=== PATIENT | male | born 1960 | race Caucasian/White ===

== ENCOUNTER 2017-12-26 13:25 | Inpatient (IN) | payer OTHER ==
[~2017-12-26] VITALS: Ht 182.9 cm; Wt 120.2 kg
[~2017-12-26 13:25] MED LIST: FLUTICASONE PRO16 GM NS; FOLIC ACID1 MG PO; LISINOPRIL-HCT1 EAC1 PO; LISINOPRIL20 MG PO; SEROQUEL100 MG PO; TOPROL XL50 MG PO
--- NOTE | 2017-12-26 19:30 | NUR ---
REPORT RECEIVED FROM AG MORRISON. PT IS AWAKE IN BED WATCHING TV. LAB INTO DRAW BLOOD.
--- NOTE | 2017-12-26 20:00 | NUR ---
SISTER INTO SEE PT, PT AWAKE AND TALKING WITH SISTER. ASSESSMENT DONE. PT STATES HE ONLY HAS PAIN IF HE TRIES TO MOVE HIS LEG, IMMOBILIZER IN PLACE. PT IS ON A PRECEDEX GTT INFUSING AT 0.21 MCG/KG/HR, IVF STARTED AT 85ML/HR. PT USING URINAL IN BED TO VOID TONNY URINE. SIDE RAILS UP, BED ALARM ON.
--- NOTE | 2017-12-26 21:45 | NUR ---
HS MEDS GIVEN, PT AWAKE AND WATCHING TV, HAS SOME SLIGHT TREMORS, RESTING HR 80'S, IS CALM AND COOPERATIVE AND NO COMPLAINTS AT THIS TIME. EATING SOME JELLO AND DRINKING WATER.
--- NOTE | 2017-12-26 23:45 | NUR ---
OXYGEN APPLIED O2 SATS DOWN TO 86-88% WHILE SLEEPING, 2L/NC BRINGS SATS UP TO 93%.
--- NOTE | 2017-12-27 00:30 | NUR ---
ASSESSMENT DONE, UNCHANGED FROM EARLIER. PT VERY SLEEPY, PRECEDEX GTT INFUSING AT 0.21 MCG/KG/HR.
--- NOTE | 2017-12-27 02:24 | NUR ---
PT AWAKENS BRIEFLY TO USE URINAL TO VOID, INCREASED TREMORS, PT DENIES PAIN STATES "NO PAIN, IM JUST REALLY SLEEPY". BACK TO SLEEP AFTER ASSISTED WITH REPOSITIONING.
--- NOTE | 2017-12-27 04:06 | NUR ---
AWAKENS EASILY FOR ASSESSMENT, ALERT AND ORIENTED, STATES HE HAS PAIN WITH MOVEMENT ONLY BUT OTHERWISE HE IS COMFORTABLE. BACK TO SLEEP, VSS.
--- NOTE | 2017-12-27 06:19 | NUR ---
PT INC SMALL AMT OF STOOL, DARÍO CARE DONE/LINEN CHANGED. PT FOUND WITH BLEEDING GUMS/ORAL CARE DONE. PT REPOSITIONED UP IN BED. GIVEN OXYCODONE FOR PAIN, AND MORPHINE 2MG IV GIVEN FOR REPOSITIONING AND CLEANING.
--- NOTE | 2017-12-27 08:02 | NUR ---
PT VOIDED IN URINAL AT THIS TIME, TONNY IN COLOR WITH FOUL ORDOR NOTED. PT IS COOPERATIVE WITH HOSPITAL ROUTINE, PT IS NOP FOR ABD US TODAY.
--- NOTE | 2017-12-27 09:25 | NUR ---
CXR COMPLETE AND DR JEAN IN DEPARTMENT TO SEE RESULTS. PT REPOSITIONED AT THIS TIME ALSO. PT HAS YELLOW TINGE IN COLOR TO BODY AND EYES. PT WANTED SOMETHING TO DRINK AT THIS TIME EXPLAINED THAT HE IS NPO AT THIS TIME TILL THE US IS COMPLETED. A MOSIT GREEN SPONGE GIVEN TO PT AT THIS TIME.
--- NOTE | 2017-12-27 09:57 | NUR ---
US HERE AT THIS TIME TO COMPLETE ABD US.
--- NOTE | 2017-12-27 10:54 | NUR ---
PT VOIDED USING THE URINAL, TONNY-BILIARY IN COLOR. PT AWAKENS WELL WHEN SPOKEN TOO. C/O'S PAIN WHEN HE TRIES TO MOVE.
--- NOTE | 2017-12-27 11:06 | NUR ---
PT TOOK ORAL MEDS WELL AND IS CURRENTLY WATCHING TV.
--- NOTE | 2017-12-27 12:20 | NUR ---
DR JEAN INTO SEE PT AT THIS TIME, NO NEW ORDERS AT THIS TIME. PT SISTER INTO VISIT AT THIS TIME ALSO. PT AWAKENS WITH EASY THIS AFTERNOON.
--- NOTE | 2017-12-27 12:25 | NUR ---
PT GIVEN SOME CLEAR LIQUIDS TO DRINK AT THIS TIME. PT SITTING UPRIGHT IN BED AT THIS TIME. IT WAS NOTED THAT PATIENT CONTIOUES TO HAVE A CHEW IN HIS MOUTH. PT WAS ABLE TO SPIT IT OUT FOR STAFF. PT MOUTH CONTIOUES TO BLEED R/T LOW PLTS 73. ORAL CARE DONE NEEDED. SHAVING CREAM PLACE ON BOTH LOWER LEGS AND FEET TO SOAK IN SO THAT STAFF CAN GET THEM CLEANED. PT IS OKAY WITH STAFF CLEANING HIM UP. PT WAS FOUND DOWN YESTERDAY BY FAMILY. PT SAID HE FELL ABOUT 0300 AND THEN FAMILY FOUND HIM LATER IN THE AFTERNOON. POSSIBLE BEING DOWN FOR 10 HOURS OR LONGER.
--- NOTE | 2017-12-27 14:31 | NUR ---
COMPLET BED BATH GIVEN MAX ASSISTANCE NEEDED. PT PRE MEDICATED WITH 2MG MORPHINE IVP. PT ABLE TO TURN SELF AND IS COOPERATIVE WITH THE WHOLE PROCESS THIS AFTERNOON. STAFF EXPLAINED THE IMPORTANCE OF GOOD SKIN CARE DURING HIS HOSPITAL STAY AND GOOD HYGINE. ORAL CARE COMPLETED ALSO IT IS NOTED THAT HIS GUMS UPPER AND LOWER BLEED. ORAL CARE SOMPLETED WITH CHLORIXADINE AND THEN MOSITURE LOTION. PT MARGUERITE THIS WELL ALSO. PT VOIDED IN URINAL. THE URINE REMAINS BILLIARY IN COLOR. PT HOB IS AT LEAST 30 DEGREES AND HE CURRENTLY IS WATCHING TV.
--- NOTE | 2017-12-27 15:19 | NUR ---
PT REMAINS AWAKE WATCHING TV AT THIS TIME. AT TIMES YOU HEAR HIM MOAN OUTLOUD, IT IS DUE TO HE HAS TRYED TO MOVED HIS LEFT KNEE.
--- NOTE | 2017-12-27 16:54 | NUR ---
PT DOING OKAY AT THIS TIME, WATCHING TV C/O PAIN IN LEFT KNEE WHEN HE TRIES TO MOVE IT. TWO WARM BLANKETS GIVEN AND ROOM TEMP INCREASED. PT C/O BEING COLD. PT GIVEN SOME CHINKEN BROTH AND FRESH WATER ALSO AT THIS TIME.
--- NOTE | 2017-12-27 17:47 | NUR ---
PT CONTIOUES TO DRINK HIS CL LIQUID TRAY, IT IS NOTED THAT HE IS HAVING INCREASED IN SHAKE OF HIS HANDS. PRECEDEX DRIP INCREASED 0.12MCG/KG/HR AT THIS TIME. CONTIOUES TO C/O BEING COLD NO FEVER NOTED, SO WARM BLANKETS GIVEN AND ROOM TEMP INCREASED.
--- NOTE | 2017-12-27 17:49 | EKG ---
[facility] [address] [facility] [place] [address] Signed Sinus tachycardia Left axis deviation Low voltage QRS Abnormal ECG No previous ECGs available Confirmed by CLAUDE JEAN MD ([id number]) on 12/27/2017 5:49:06 PM Electronically Signed By: CLAUDE JEAN MD 12/27/17 1749 PATIENT NAME: NATASHA GUSMAN JR Electrocardiogram DATE OF : 64 PHYSICIAN: CLAUDE JEAN MD REPORT #: [id number] REPORT IS CONFIDENTIAL AND NOT TO BE RELEASED WITHOUT AUTHORIZATION
--- NOTE | 2017-12-27 17:58 | NUR ---
PT ATE WELL, SCD PLACED ON RIGHT LOWER EXT AT THIS TIME. PT WILLING TO TRY IT AT THIS TIME. "I AM NOT SURE I LIKE THOSE THINGS" EXPLAINED THE BENFIT OF THEM WITH HIS ABILITY NOT TO MOVE MUCH. "DONT WANT YOU TO GET A BLOOD CLOT ALSO DURING THIS TIME" YA YOUR RIGHT! PT WATCHING TV AT THIS TIME AND TALKING ON HIS CELL PHONE.
--- NOTE | 2017-12-27 18:44 | NUR ---
PT VOIDED 100MLS AND IT WAS NOTED THAT HE ALSO WAS INCONTED SOME, FRESH CHUX PLACED AND PT IS ABLE TO TURN SELF BETER EACH TIME HE DOES IT. BUT HE TENDS TO CLENTCH HIS TEETHAND MAKE THEM BLEED. IT WAS NOTED THAT HIS TWO FRONT TOP TEETH ARE BLEEDING FROM THE GUM AREA. PT REPOSITIONED IN BED AND THEN THE HOB AT LEAST 30 DEGREES AT THIS TIME. SIDE RAILS X 4, CALL LIGHT WITHIN REACH.
--- NOTE | 2017-12-27 19:30 | NUR ---
PT SHIFT REPORT RECIVED FROM DAY SHIFT RN. PER DAY SHIFT RN PT RESTING IN BED AT THIS TIME. PT PRECEDEX GTT HAD TO BE TURNED BACK UP D/T INCREASED SHAKING. WILL CONTINUE TO CLOSELY MONITOR.
--- NOTE | 2017-12-27 20:00 | NUR ---
PT SHIFT ASSESSMENT COMPLETED. PT BREATH SOUNDS ARE CLEAR AND DIMINISHED. PT IS ON 2L NC AT THIS TIME WITH SPO2 96-98%. BOWEL TONES ACTIVE. EDEMA NOTED IN BLE AND GENERALIZED IN ARMS. PT LEFT KNEE IN IMMOBILIZER. PEDAL PULSES FAINT/DOPPLER VERIFIED. GAVE PT FRESH ICE WATER PER REQUEST. PT ARMS ARE SLIGHTLY TREMULOUS. WILL CONTINUE TO CLOSELY MONITOR.
--- NOTE | 2017-12-27 21:15 | NUR ---
NEW IV PLACED IN LEFT AC FOR BANANNA BAG INFUSION. PT TOELRATED WELL. GAVE PT PRN PAIN MEDICATION FOR PAIN 7/10 IN LEFT LEG. EDUCATED TO INFORM STAFF IF PAIN IS NOT IMPROVING IN THE NEXT HOUR. EDUCATED PT HE COULD HAVE NICOTINE LOZENGE IF NEEDED. PT REQUESTED. PT STATES HE HAS CHEWED FOR A VERY LONG TIME. NO OTHER ISSUES AT THIS TIME. WILL CONTINUE TO CLOSELY MONITOR PT.
--- NOTE | 2017-12-27 22:30 | NUR ---
PER MD IF PT CAN FIT IN XAVIER HOSE CAN PLACE XAVIER HOSE BILATERALLY. OTHERWISE PLACE SCD ON RIGHT LEG AND FOOT PUMP ON LEFT FOOT.
--- NOTE | 2017-12-27 23:30 | NUR ---
PT CALLED TO HAVE BM. PT ASSISTED ONTO BEDPAN D/T NONWEIGHT BEARING AND PT IS SHAKY. PT TOLERATED WELL. PT HAD LG SOFT BM AND URINATED. URINE SPILLED ON CHUCKS PAD. PT CLEANED, NEW PADS PLACED, NEW GOWN PLACED. FOOT PUMP PLACED ON PT AND PEDAL PULSES MARKED. PT STATES PAIN ONLY IMPROVED SLIGHTLY WITH OXYCODONE. GAVE PT PRN MORPHINE FOR PAIN 05/26. PT REQUESTING A NICOTINE LOZENGE. PT DENIES ANY OTHER ISSUES AT THIS ITME. WILL CONTINUE TO CLOSELY MONITOR.
--- NOTE | 2017-12-28 01:30 | NUR ---
pt resting in bed. emptied urinal. pt states leg pain is improving with pain medication. will continue to closely monitor.
--- NOTE | 2017-12-28 03:45 | NUR ---
PT RESTING IN BED AT THIS TIME. PT DENIES ANY NEEDS. WILL CONTINUE TO CLOSELY MONITOR.
--- NOTE | 2017-12-28 05:19 | NUR ---
PT RESTING IN BED. PT STATES PAIN IS 8/10. GAVE PRN OXYCODONE PAIN MEDICATION. FRESH ICE WATER AT BEDSIDE. CALL LIGHT IN REACH. WILL CONTINUE TO CLSOELY MONITOR.
--- NOTE | 2017-12-28 07:30 | NUR ---
REPORT RECIEVED AT BEDSIDE. PATIENT REQUESTED BEDPAN.
--- NOTE | 2017-12-28 07:40 | NUR ---
USED BEDPAN TO EXPELL LARGE LIQUID STOOL. BATH AND BED LINEN CHANGE DONE.
--- NOTE | 2017-12-28 07:50 | NUR ---
MORPHINE 4 MG IV GIVEN FOR LEFT LEG PAIN.
--- NOTE | 2017-12-28 08:57 | NUR ---
HELPED NURSE CHRISTOPHE AND NURSE WIN LAMA LINENS AND PT. ORDERED BRK. SET UP FOR BRK. BRUSHED TEETH. TOOK VITALS.
--- NOTE | 2017-12-28 11:50 | NUR ---
DR. JEAN HERE TO SEE PATIENT. ORDERS RECIEVED TO DC IVF. PRECEDEX DECREASED TO 0.05. WILL TITRATE TO OFF PER ORDERS.
--- NOTE | 2017-12-28 12:10 | NUR ---
UP TO CHAIR. NWB. USED WALKER. PHYS THERAPY HERE TO ASSIST. TOERATED TRANSFER WELL. OXYCODONE 5 MG PO GIVEN. ASSESSMENT DONE.
--- NOTE | 2017-12-28 14:00 | NUR ---
BACK TO BED AFTER USING COMMODE TO EXPELL LARGE LIQUID BROWN STOOL. UNDERARN SLING USED TO ASSIST PATIENT BACK TO BED FROM COMMODE. TOLERATED WELL.
--- NOTE | 2017-12-28 15:07 | NUR ---
WATCHING TV. DENEIS PROBLEMS. RESTING. BRACE REMAINS ON LEFT LEG.
--- NOTE | 2017-12-28 16:00 | NUR ---
ASSESSMENT UNCHANGED. DENIES NEED FOR PAIN MEDICATION. XAVIER STOCKING APPLIED TO RIGHT LEG. SCD TO R LEG ON. FOOT SCD ON LEFT FOOT.
--- NOTE | 2017-12-28 16:15 | NUR ---
C/O UPSET STOMACH. STATES "FEELS LIKE GAS", SLIGHT NAUSEA. ZOFRAN 4 MG IV GIVEN
--- NOTE | 2017-12-28 17:55 | NUR ---
CONTINUES TO C/O STOMACH DISCOMFORT. DENIES NEED FOR PAIN MED. DINNER HELD FOR NOW. NO ETOH WITHDRAWAL SYMPTOMS. IS ALERT AND COOPERATIVE.
--- NOTE | 2017-12-28 18:45 | NUR ---
DR. JEAN AWARE OF ABD DISCOMFORT. ORDERS RECEIVED. SIMETHACONE 180 PO GIVEN.
--- NOTE | 2017-12-28 18:55 | NUR ---
OXYCODONE 5 MG PO GIVEN FOR PAIN. ON BEDPAN. PATIENT NOW ON CLEAR LIQUIDS PER ORDERS.
--- NOTE | 2017-12-28 19:02 | NUR ---
Medications reconciled through patient interview. Patient is requesting to resume his home quetiapine 100mg at hs
--- NOTE | 2017-12-28 19:12 | NUR ---
REMAINS ON BEDPAN. REPORT GIVEN.
--- NOTE | 2017-12-28 19:30 | NUR ---
PT RESTING IN BED. PT SHIFT REPORT RECIVED FROM JOCELYNN WEST RN. PT HR IS TRENDING UP. PT HR IS 115-125 AT THIS TIME. PER DAY SHIFT PT HAS HAD SOME ABD CRAMPING. PT IS BACK TO CLEAR LIQUID DIET. WILL CONTINUE TO CLOSELY MONITOR.
--- NOTE | 2017-12-28 20:15 | NUR ---
PT ASSESSMENT COMPLETED. PT RESTING IN BED WITH FRIEND AT BEDSIDE. PT STATES HE IS FEELING RESTLESS AND ANXIOUS. PT HAS NOTICABLE HAND TREMORS. PT HR TRENDING UP TO 115-125. PER MD START ON PRECEDEX GTT AT 0.1MCG/KG/HR. PT IS AGREEABLE TO THIS PLAN. WILL CONTINUE TO CLSOELY MONITOR.
--- NOTE | 2017-12-28 21:15 | NUR ---
SPOKE WITH REGMARYING PT. PT STATES HE IS STILL ANXIOUS AND FEELS A LITTLE SOB. PT LUNGS CLEAR AND DIMINSHED. PT IS ON 2L OXYGEN VIA NC. SPO2 94-99%. PER MD CAN INCREASE PRECEDEX GTT UP TO 0.2MCG/KG/HR. EXPLAINED TO PT PLAN OF CARE. PT IS AGREEABLE TO THIS PLAN. WILL CONTINUE TO CLOSELY MONITOR.
--- NOTE | 2017-12-28 21:30 | NUR ---
INCREASED PRECEDEX GTT TO 0.15MCG/KG/HR. GAVE PT PRN MORPHINE FOR LEG AND ABD PAIN. PT ASSISTED ONTO BEDPAN. PT TOLERATED WELL. PT CONTINUES TO HAVE ABDOMINAL CRAMPING AND GAS. PT STATES IT IS RELIEVED WITH HAVING A BM. WILL CONTINUE TO CLOSELY MONITOR.
--- NOTE | 2017-12-28 23:36 | NUR ---
PT IS RESTING IN BED AT THIS TIME. PT DENIES ANY NEEDS. CALL LIGHT IN HAND. WILL CONTINUE TO CLOSELY MONITOR.
--- NOTE | 2017-12-29 00:53 | NUR ---
PT CALLED TO USE BEDPAN. PT IS ABLE TO HELP MUCH BETTER TONIGHT THEN THE PREVIOUS DAY. PT HAD SMALL LOOSE BM. PT DENIES SOB AND STATES ANXIOUS FEELING IS BETTER THAN EARLIER IN THE SHIFT. PT HR HAS BEEN TRENDING DOWN SINCE STARTING THE PRECEDEX GTT. PT HR 90-95 AT THIS TIME. PT STATES ABD CRAMPING BETTER AFTER HAVING BM. PT ASSESSMENT UNCHANGED FROM PREVIOUS. PRN PAIN MEDICATION GIVEN FOR LEG AND ABD PAIN. GAVE SIMETHICONE FOR GAS/CRAMPING AND A NICOTINE LOZENGE. PT STATES HE FEELS THOSE NICOTINE LOZENGES WORK WELL FOR HIM. FRESH WATER AT BEDSIDE. WILL CONTINUE TO CLOSELY MONITOR. CALL LIGHT IN REACH.
--- NOTE | 2017-12-29 02:50 | NUR ---
PT CALLED TO USE BEDPAN. PT TOLERATED WELL. NEW SEFERINO PAD PLACED. PT DENIES ANY OTHER ISSUES AT THIS TIME. WILL CONTINUE TO CLOSELY MONITOR.
--- NOTE | 2017-12-29 04:48 | NUR ---
PT RESTING IN BED. PT HAS CALLIGHT IN HAND. WILL CONTINUE TO CLSOELY MONITOR.
--- NOTE | 2017-12-29 06:23 | NUR ---
PT CALLED TO USE BEDPAN. PT SPILLED URINAL WHEN TRYING TO USE. PT SATURATED TWO SEFERINO PADS. PT CLEANED AND PLACED ON BEDPAN. PT HAD SMALL LIQUID STOOL. PT CLEANED AND NEW PADS PLACED UNDER PT. CHANGED PT GOWN. PT HAS VERY MINIMAL TREMOR THIS MORNING AND DENIES SOB, RESTLESSNESS, AND ANXIOUSNESS. PT HR HAS TRENDED DOWN SINCE THE START OF SHIFT FROM 120'S TO 85. PT STATES ABDOMINAL CRAMPING IS MUCH BETTER THIS AM. GAVE PT PRN OXYCODONE FOR PAIN 03/26. CALL LIGHT IN REACH. WILL CONTINUE TO CLOSELY MONITOR.
--- NOTE | 2017-12-29 08:16 | NUR ---
PT AWAKE IN BED. TOOK VITALS. NURSE MITRA IN ROOM.
--- NOTE | 2017-12-29 08:55 | NUR ---
PATIENT LYING IN BED DOZING OFF UPON INITIAL ASSESSMENT THIS AM AT 0745. PT AWAKENS EASILY AND IS PLEASANT. PLAN OF CARE DISCUSSED WITH PATIENT. PT HAS PRECEDEX INFUSING AT 0.15 MCG/KG/HR. PATIENT ABLE TO STATE ALL ORIENTATION QUESTIONS CORRECTLY, AND DOES NOT SHOW AGITATION OR ANXIETY AT THIS TIME. PT'S SKIN IS VISIBLY JAUNDICED. LUNG SOUNDS ARE CLEAR, AND PT DENIES SHORTNESS OF BREATH. MURMUR AUSCULTATED. PT EATING A CLEAR LIQUID TRAY AND TOLERATED WELL. PT DENIES FURTHER ABD DISCOMFORT AT THIS TIME, BUT STILL STATES HE FEELS "FULL OF AIR" IN ABDOMEN. LACTULOSE HELD THIS AM, AND ORDER IS NOW D/C. LAB CBC STILL PENDING. LEFT KNEE BRACE ON AND IN LOCKED POSITION. EDEMA IS PRESENT IN BOTH LOWER EXT AND ALSO GENERALIZED. DISCUSSED WITH PATIENT AT LENGTH HIS DRINKING AND HIS NEED TO QUIT DRINKING. PT STATES, "I THINK I BETTER BE DONE DRINKING." ENCOURAGED PATIENT THAT HE REALLY DOES NEED TO QUIT DRINKING FOR HIS HEALTH. CONTINUE TO MONITOR.
--- NOTE | 2017-12-29 09:16 | NUR ---
PHYSICAL THERAPY HERE TO WORK WITH PATIENT. PT GIVEN 4 MG IV MORPHINE FOR PAIN CONTROL WITH THIS ACTIVITY.
--- NOTE | 2017-12-29 09:17 | NUR ---
PRECEDEX TURNED DOWN TO 0.1 MCG/KG/HR AROUND 0815.
--- NOTE | 2017-12-29 10:19 | NUR ---
PATIENT SITTING UP IN CHAIR AT THIS TIME AFTER WORKING WITH PHYSICAL THERAPY. PT IS NON WEIGHT BEARING ON LEFT LEG. XAVIER HOSE ON RIGHT LEG. PT GIVEN BED BATH AND TOLERATED THIS WELL. PT IN GOOD SPIRITS. PT GIVEN PAIN MEDICAITON PRIOR TO WORKING WITH PHYSICAL THERAPY AND DID WELL WITH THIS MOVEMENT. PT REMAINS IN SINUS RHYTHM, HR IN THE 80-90s. LAST BP 106/63 (71). PRECEDEX CONTINUES AT 0.1 MCG/KG/HR.
--- NOTE | 2017-12-29 10:37 | NUR ---
DR. JEAN IN TO SEE PATIENT AT THIS TIME. PT CONTINUES TO SIT IN CHAIR AT THIS TIME. CONTINUE TO MONITOR.
--- NOTE | 2017-12-29 11:37 | NUR ---
PATIENT HELPED BACK TO BED FOR ECHO TO BE PERFORMED. PT'S PRECEDEX TURNED DOWN TO 0.05 MCG/KG/HR AND WILL BE TURNED OFF SOON. PT HAS VERY MILD TREMOR NOTED WHNE ARMS ARE FULLY EXTENDED, OTHERWISE HE IS NOT TREMULOUS. PT REMAINS IN GOOD SPIRITS. PT GIVEN 20 MG PO LASIX WELL AT THIS TIME. PT TO ORDER A CARDIAC DIET LUNCH.
--- NOTE | 2017-12-29 13:15 | NUR ---
PHYSICAL THERAPY IN ROOM AGAIN TO WORK WITH PATIENT. PT ABLE TO GET UP OUT OF BED, AND USE WALKER TO AMBULATE OVER TO OTHER SIDE OF BED AND INTO CHAIR. PT REMAINS NON WEIGHT BEARING ON LEFT LEG AND GETTING BETTER AT AMBULATING ON RIGHT LEG ONLY. PT IN GOOD SPIRITS. PT TOLERATED HIS LUNCH WELL. HEART RATE UP TO 132 AT IT'S HIGHEST WHILE AMBULATING. NOW HR RESTING IN THE MID TO UPPER 90s AND INTO THE LOW 100s. MONITOR. PT REMAINS ON ROOM AIR WELL. ENC IS AND ACAPELLA.
--- NOTE | 2017-12-29 14:09 | NUR ---
PATIENT'S SISTER IN ROOM AND ONE OTHER VISITOR AT THIS TIME. PT SITTING IN CHAIR AND TOLERATING THIS WELL. CONTINUE TO MONITOR.
--- NOTE | 2017-12-29 15:34 | NUR ---
PATIENT HELPED BACK TO BED AROUND 1430. PATIENT READY TO TAKE A NAP AND RELAX. PT USES WALKED AND ABLE TO AMBULATE INTO BED WITH 1 PERSON ASSIST. PT NOW RESTING. HEART RATE 101, SP02 IS 91% ON ROOM AIR. CONTINUE TO MONITOR.
--- NOTE | 2017-12-29 15:48 | NUR ---
PATIENT HELPED ONTO BEDPAN AT THIS TIME. PT HAS BEEN RESTING WELL. CONTINUE TO MONITOR.
--- NOTE | 2017-12-29 19:30 | NUR ---
PT SHIFT REPORT RECIVED FROM DAY SHIFT RN. ALL QUESTIONS ANSWERED. WILL CONTINUE TO CLOSELY MONITOR. PT RESTING IN BED AT THIS TIME.
--- NOTE | 2017-12-29 21:00 | NUR ---
PT SHIFT ASSESSMENT COMPLETED. PT RESTING IN BED. PT HAS SLIGHT TREMOR NOTES. PT HAS LITTLE RESTLESSNESS, BUT STATES ITS NOT BAD. AOX4 PT CALLS APPROPRIATELY. ASSISTED WITH BEDPAN. PT TOLERATED WELL. WILL CONTINUE TO CLOSELY MONITOR.
--- NOTE | 2017-12-29 21:45 | NUR ---
IN PT ROOM TO START ANTIBIOTICS. PT REPORTS HE IS SWEATY AND FEELING UNEASY/ RESTLESS. TREMORS NOTED IN HIS ARMS/HANDS WHEN EXTENDED. PT DENIES A COOL WASH CLOTH. VITALS TAKE. PT HR 102 AND BP 149/69. TURNED ROOM TEMP DOWN SLIGHTLY. CIWA SCALE 9. PT DENIES HEADACHE, VISUAL/AUDITORY DISTURBANCES, AND ANUSEA/VOMITING. WILL CALL MD TO UPDATE.
--- NOTE | 2017-12-29 21:50 | NUR ---
CALLED MD AND UPDATED REGURDING PT STATUS. MD WILL CALL BACK WITH ORDERS.
--- NOTE | 2017-12-29 22:00 | NUR ---
CALLED MD BILLS INCREASED RESTLESSNESS. PT STATES "I FEEL ANXIOUS AND UNEASY, AND i AM SWEATING". PT TEMP IS 98.8. MILD HAND TREMORS NOTED. PER MD GIVE SEROQUEL AND PRN VISTARIL IF SEROQUEL IS NOT EFFECTIVE. WILL COTNINUE TO CLOSELY MONITOR.
--- NOTE | 2017-12-29 22:23 | NUR ---
PT AWAKE AND WATCHING TV. VOIDED 175 PER URINAL. SEROQUEL GIVEN PER ORDER. PT STATES HE TAKES MED FOR BEDTIME. DENIES OTHER NEEDS AT THIS TIME.
--- NOTE | 2017-12-30 01:24 | NUR ---
ASSISTED PT TO BEDPAN FOR A LIQUID STOOL. VOIDED IN URINAL WELL.
--- NOTE | 2017-12-30 01:41 | NUR ---
PT CALLED TO USE BEDPAN. OTHER RN IN TO HELP. PT STATES ANXIOUS FEELING IS SLIGHTLY BETTER THAN EARLIER BUT NOT COMPLETLY RESOLVED. GAVE PRN NICOTINE LOZENGE AND VISTARIL. PT HR REMAINS 95-105 AT REST. PT STATES SWEATING IN BETTER THAN EARLIER. WILL CONTINUE TO CLOSELY MONITOR.
--- NOTE | 2017-12-30 02:45 | NUR ---
PT HR UP. ENTERED ROOM AND FOUND PT SITTING ON THE EDGE OF THE BED. PT ALERT AND ORIENTED. REDUCATED PT THAT STAFF NEED TO BE IN THERE TO ASSIST HIM. HELPED PT READJUST IN BED WITH PILLOW SUPPORT. PT TOELRATED WELL. PT STATES RESTLESSNESS ISNT TO BAD RIGHT NOW. BED ALARM SET. WILL CONTINUE TO CLOSELY MONTIOR.
--- NOTE | 2017-12-30 04:20 | NUR ---
PT CALLED TO GET UP TO THE CHAIR. PT ASSISTED UP WITH 2 PERSON AND WALKER. PT NOW RESTING IN RECLINER. CALL LIGHT IN HAND. PRN PAIN MEDICATION AND NICOTINE LOZENGE. FRESH WATER AT THE BEDSIDE. WILL CONTINUE TO CLOSELY MONITOR PT.
--- NOTE | 2017-12-30 05:30 | NUR ---
PT CALLED TO GET BACK TO BED. PT TRANSFERED WELL WITH NONWEIGHT BEARING ON LEFT LEG. PT IN BED WITH CALL LIGHT IN HAND. WILL CONTINUE TO CLSOELY MONITOR.
--- NOTE | 2017-12-30 07:30 | NUR ---
BEDSIDE REPORT RECIEVED.
--- NOTE | 2017-12-30 08:30 | NUR ---
DR. JEAN HERE TO SEE PATIENT. ORDERS RECIEVED. TOOK BREAKFAST WELL.
--- NOTE | 2017-12-30 09:00 | NUR ---
PHYS THERAPY HERE TO WORK WITH PATIENT. WHEN SITTING AT BEDISDE, SPONGE BATH GIVEN. THEN TO CHAIR . REMAINS NWB OF LEFT LEG. USING WALKER WELL. DENIES DIZZINESS WITH MOVEMENT.
--- NOTE | 2017-12-30 10:00 | NUR ---
PATIENT IS TALKING ABOUT THE TALK HE HAD WITH DR. JEAN. PATIENT IS DEPRESSED ABOUT GOING TO [facility]. IS UNDERSTANDING TO REASON WHY NEEDS TO GO THERE. SUPPORT GIVEN.
--- NOTE | 2017-12-30 11:24 | NUR ---
remains in chair. DENIES PAIN. FAMILY IS IN ROOM. LUNCH ORDERED. LEGS ELEVATED. BRACE REMAINS TO LEFT LEG.
--- NOTE | 2017-12-30 12:13 | NUR ---
ASSESSMENT DONE. NO CHANGES.
--- NOTE | 2017-12-30 14:00 | NUR ---
report given to medical floor.
--- NOTE | 2017-12-30 14:20 | NUR ---
to medical floor via chair. IV ANTIBOTIC HUNG.
--- NOTE | 2017-12-30 14:46 | NUR ---
RECEIVE PT FROM CCU VIA CHAIR. SON AT BEDSIDE. ZOSYN INFUSING. PATIENT REPORTS PAIN OF 3/10 AND THAT LEVEL IS TOLLERABLE. ASSESSMENT COMPLETE. LUNG SOUND CLEAR. 2+ PITTING EDEMA IN BILAT LE. GENERAL EDEMA NOTED WELL. PATIENTS SKIN IS JAUNDICE AND PUFFY. PEDAL PULSES 1+. RADIAL 2+. PATIENT IS A/O X4. BRACE ON LEFT LEG. BOTH EXTREMITIES ARE ELEVATED. TEDHOSE ON RIGHT LEG. BOWEL TONES HYPOACTIVE. PATIENT REPORTS NO NAUSEA BUT DECREASED HUNGER. REPORTS BOWEL MOEVEMENT TODAY. 2 IV'S IN LEFT ARM. SL. CALL LIGHT WITHIN REACH. PERSONAL ITEMS AT BEDSIDE. REFRESHED WATER. REPORTS NO OTHER NEEDS AT THIS TIME.
--- NOTE | 2017-12-30 15:45 | NUR ---
HAD A DISCUSSION WITH PT REGARDING DR JEAN REQUEST ABOUT THE PT BEING PREPARED TO POSS END UP NEEDING TO GO TO SWING BED OR SNF, DEPENDING ON HOW WELL HE IS DOING WITH HIS PT AND ABILITY TO MOVE AROUND INDEPENDANTLY. PT STATES HE DOES NOT WANT TO GO TO A SNF--"THATS WHERE MY DAD I DON'T WANT TO GO TO A GROUP HOME. STATED IT REALLY DEPENDS ON YOU AND YOUR PARTICIPATION IN YOUR HEALTH, SO YOU HOPEFULLY CAN GO HOME WHEN THE TIME COMES.
--- NOTE | 2017-12-30 17:36 | NUR ---
RECEIVED PATIENT FROM CCU. BROKEN LEFT TIBIAL PLATEAU. BRASE ON LEFT LEG. TEDHOSE AND SCD ON RIGHT LEG. PAIN HAS BEEN 3/10. PATIENT INDICATES THIS IS A TOLLERABLE LEVEL. LEG IS INOPERABLE DUE TO LIVER DISEASE. NON-WEIGHTBEARING ON LEFT LEG. ALCOHOLIC. HAS NIGHT ANXIETY. DECREASED APETITE. CARDIAC DIET. 2PA
--- NOTE | 2017-12-30 18:44 | NUR ---
PATIENT SITTING UP IN CHAIR. FRESH ICE WATER GIVEN. NO NEEDS AT THIS TIME. CALL BUTTON IN REACH.
--- NOTE | 2017-12-30 19:17 | NUR ---
RECEIVED REPORT FROM RN. PATIENT IS RESTING IN CHAIR, BREATHING IS EVEN AND UNLABORED. DENIES NEEDS AT THIS TIME, PAIN IS 2/10 AND DENIES NEED FOR PAIN MEDICATION. FAMILY AT BEDSIDE. CALL LIGHT WITHIN REACH.
--- NOTE | 2017-12-30 20:11 | NUR ---
ROUNDED CHARGE. PATIENT IS RESTING IN RECLINER. PATIENT DENIES ANY COMMENTS, QUESTIONS, OR CONCERNS. NO NEEDS NOTED.
--- NOTE | 2017-12-30 21:09 | NUR ---
PATIENT RESTING IN CHAIR COMFORTABLY, BREATHING IS EVEN AND UNLABORED. ASSISTED TO COMODE USING 2PA/FWW/NON-SLIP SOCKS, PATIENT MAINTAINED NON-WEIGHT BEARING ON LEFT LEG. TOLERATING AMBULATION FAIRLY WELL, REQUIRES HEAVY 2PA, BECOMES SHORT OF BREATH EASILY. NOW RESTING IN CHAIR AGAIN. DENIES NEEDS AT THIS TIME. ASSESSMENT DONE, MEDICATIONS GIVEN. CALL LIGHT WITHIN REACH.
--- NOTE | 2017-12-31 | NUR ---
PATIENT RESTING COMFORTABLY IN BED, BREATHING IS EVEN AND UNLABORED. FLACC SCORE OF 0. CALL LIGHT WITHIN REACH.
--- NOTE | 2017-12-31 02:15 | NUR ---
UPON ENTERING ROOM, PATIENT WAS FOUND TO BE STANDING IN ROOM WITHOUT ANY CLOTHES ON AND NO ASSISTANCE. WITH HELP FROM SILVIO KEY, PATIENT ASSISTED BACK TO CHAIR WITH FWW, MANTAINING NON-WEIGHT BEARING STATUS FOR LEFT LEG. EDUCATED PATIENT ABOUT IMPORTANCE OF CALLING FOR ASSISTANCE FOR AMBULATION. CHAIR ALARM PUTON. PATIENT DENIES NEEDS AT THIS TIME. CALL LIGHT WITHIN REACH, CHAIR ALARM ON.
--- NOTE | 2017-12-31 02:28 | NUR ---
FOUND PATIENT COMING OUT FROM BATHROOM WITHOUT GOWN ON, IV WAS OUT, WITH HEEL PROTECTOR ON, STATING HE WET AND MESSED IN BED. I CALLED HELP, INSTRUCTED PATIENT TO SET ON THE CHAIR. PRINCE GUADALUPE AND PRINCE GABRIEL CAME. CLEANED, SANITIZED AND MADE THE BED. 2 RN'S IN THE ROOM WITH PATIENT.
--- NOTE | 2017-12-31 03:55 | NUR ---
PATIENT RESTING COMFORTABLY IN BED, BREATHING IS EVEN AND UNLABORED. FLACC SCORE OF 0. CALL LIGHT WITHIN REACH.
--- NOTE | 2017-12-31 04:25 | NUR ---
PATIENT RESTING IN BED, BREATHING IS EVEN AND UNLABORED. COARSE HAND TREMORS NOTICED, PATIENT APPEARS ANXIOUS. PRN VISTARIL GIVEN PER EMAR. CALL LIGHT WITHIN REACH, BED ALARM ON.
--- NOTE | 2017-12-31 06:20 | NUR ---
PATIENT RESTING COMFORTABLY IN BED, BREATHING IS EVEN AND UNLABORED. DENIES NEEDS AT THIS TIME. CALL LIGHT WITHIN REACH, BED ALARM ON.
--- NOTE | 2017-12-31 06:39 | NUR ---
PATIENT'S NIGHT WAS UNEVENTFUL. HE HAS BEEN RESTING OFF AND ON THROUGHOUT SHIFT. VSS, URINE OUTPUT QS. PAIN WELL CONTROLLED. PATIENT ANXIOUS AT TIMES, RESPONDS WELL TO THERAPEUTIC COMMUNICATION AND PRN HYDROXYZINE. PATIENT IS 2PA/FWW NON-WEIGHT BEARING ON LEFT LEG AND IS TO WEAR BRACE AT ALL TIMES. PATIENT DOES NOT CALL FOR NURSE ASSISTANCE AT TIMES AND REQUIRES BED ALARM. 4+ EDEMA IN BLE NOTED. CMS INTACT. NO ACUTE CHANGES.
--- NOTE | 2017-12-31 07:25 | NUR ---
BEDSIDE REPORT RECEIVED FROM NERY. PATIENT IN BED RESTING. APPEARS TO BE SLEEPING AT THE TIME OF REPORT. NO APPARENT DISTRESS NOTED. IV ABX INFUSING. CALL LIGHT IN REACH
--- NOTE | 2017-12-31 08:00 | NUR ---
PATIENT ASKED IF WE HAVE A BED BED BREWSTER. THIS DUMPER MOLD CLEANER TOLD HIM WE CAN HELP HIM UP TO THE BATH ROOM TO USE THE TOILET. PATIENT STATED THAT HE WAS TOO TIRED TO GET UP AND WAS THINKING A BED BREWSTER WOULD BE EASIER. THIS DUMPER MOLD CLEANER TOLD HIM THAT WE PERFER HIM TO GET OUT OF BED AND MOVE AND WE CAN HELP HIM. PATIENT UP TO BATH ROOM WITH 2 PERSON ASSIST WITH FWW AND BACK TO BED. LINENS AND GOWN CHANGED. PATIENT WASHED HANDS AND FACE. PATIENT REFUSED ORAL CARE AT THE TIME. PATIENT SITTING STRAIGHT UP IN BED EATING BREAKFAST. CALL BUTTON IN REACH. FRESH ICE WATER GIVEN. NO OTHER NEEDS AT THIS TIME.
--- NOTE | 2017-12-31 09:38 | NUR ---
APTIENT RELAXING IN BED EYES CLOSED PULP DRIER FIRER IN TO TAKE LUNCH ORDER. VITALS DONE, FRESH WATER GIVEN CALL LIGHT IN REACH- NO OTHER NEEDS
--- NOTE | 2017-12-31 09:55 | NUR ---
PATIENT FOUND IN BED AWAKE A&O. SHIFT ASSESSMENT DONE. PATIENT REPORTS NO PAIN AT THIS TIME EXCEPT WITH MOVEMENT. LEFT LEG IN BRACE, CMS INTACT, 1+ EDEMA NOTED IN THE LOWER EXTREMITIES, SKIN WARM AND PINK. ABD OBESE, ACTIVE BOWEL TONES. ECCHYMOSIS NOTED ON THE LEFT AC AND VARIOUS PLACE IN BOTH FORARMS. PATIENT REPORTED BEING COLD, WARM BLANKET GIVEN. NO TREMOR, NO SWEATS. CALL LIGHT IN REACH.
--- NOTE | 2017-12-31 11:06 | NUR ---
PHYSICAL THERAPIST IN ROOM TO WORK WITH PATIENT. PATIENT WAS MEDICATED FOR 5/10 PAIN ON THE LEFT KNEE.
--- NOTE | 2017-12-31 12:25 | NUR ---
PATIENT UP TO CHAIR WITH PHYSICAL THERAPIST. EATING LUNCH AT THIS TIME. NO COMPLAINTS. CALL LIGHT IN REACH.
--- NOTE | 2017-12-31 13:35 | NUR ---
PATIENT SITTING UP IN CHAIR. VITALS DONE, URINAL EMPTIED. FRESH ICE WTAER. NO OTHER NEEDS.
--- NOTE | 2017-12-31 15:15 | NUR ---
PATIENT SITTING UP IN CHAIR, THERAPIST IN ROOM, DISCUSSING LEG BRACE. I SET PATIENT UP FOR ORAL CARE,FRESH ICE WATER. CALL BUTTON IN REACH.
--- NOTE | 2017-12-31 15:22 | NUR ---
PATIENT WAS MEDICATED PRIOR TO PHYSICAL THERAPIST.
--- NOTE | 2017-12-31 18:03 | NUR ---
PATIENT WATCHING TV IN CHAIR. ORDERED DINNER NO ORDER HAD BEEN TAKEN YET. LEGS ELEVATED VITALS AND I/O'S. FRESH WATER-CALL LIGHT IN REACH.
--- NOTE | 2017-12-31 18:44 | NUR ---
PATIENT HAD DONE WELL TODAY. WORKED WITH PHYSICAL THERAPIST TWICE. NO SIGNS OF ETOH WITHDRAWL. IV SITE PATENT. IV ABX. BRACE IN PLACE AT ALL TIME. PT HAD ONE BM TODAY. ATE 100% OF HIS MEAL. 3+ EDEMA IN THE LOWER EXTREMITIES. GOOD U/O.
--- NOTE | 2017-12-31 19:27 | NUR ---
RECEIVED REPORT FROM RN. PATIENT IS SITTING IN CHAIR COMFORTABLY. DENIES NEEDS AT THIS TIME. REPORTS 0/10 PAIN IN LEFT LEG. EDUCATED PATIENT TO CALL FOR ASSISTANCE WITH AMBULATION. CALL LIGHT WITHIN REACH.
--- NOTE | 2017-12-31 22:20 | NUR ---
ASSISTED PATIENT TO BATHROOM WITH 2PA/FWW MAINTAINING NON-WEIGHT BEARING STATUS. NOW RESTING COMFORTABLY IN BED, BREATHING IS EVEN AND UNLABORED. DENIES FURTHER NEEDS. CALL LIGHT WITHIN REACH, BED ALARM ON.
--- NOTE | 2017-12-31 22:54 | NUR ---
HELPED PRINCE GABRIEL WITH GETTING THE PT TO THE BATHROOM WITH HIS FWW. ALSO HELPED GET HIM TO BED. PUT ON HIS SCDS, AND HEEL PROTECTORS. FRESH WATER GIVEN. URINAL EMPTIED. BEDSIDE TABLE AND CALL LIGHT WITHIN REACH.
--- NOTE | 2018-01-01 00:32 | NUR ---
PATIENT RESTING COMFORTABLY IN BED, BREATHING IS EVEN AND UNLABORED. FLACC SCORE OF 0. CALL LIGHT WITHIN REACH, BED ALARM ON.
--- NOTE | 2018-01-01 01:50 | NUR ---
ASSISTED PATIENT TO BATHROOM WITH 2PA/FWW MAINTAINING NON-WEIGHT BEARING STATUS OF LEFT LEG. TOLERATING AMBULATION WELL WITHOUT A SIGNIFICANT INCREASE IN SHORTNESS OF BREATH. NOW RESTING IN BED COMFORTABLY AGAIN. REPORTS 6/10 PAIN IN LEFT LEG, PRN OXYCODONE GIVEN. DENIES FURTHER NEEDS. CALL LIGHT WITHIN REACH, BED ALARM ON.
--- NOTE | 2018-01-01 04:00 | NUR ---
ASSISTED PATIENT TO BATHROOM WITH 2PA/FWW. NOW RESTING COMFORTABLY IN BED AGAIN. DENIES NEEDS AT THIS TIME. CALL LIGHT WITHIN REACH, BED ALARM ON.
--- NOTE | 2018-01-01 05:15 | NUR ---
PATIENT'S NIGHT WAS UNEVENTFUL. HE HAS BEEN RESTING THROUGHOUT SHIFT. VSS, URINE OUTPUT QS. PAIN WELL CONTROLLED WITH PRN OXYCODONE. PATIENT ANXIOUS AT TIMES, X1 DOSE OF HYDROXYZINE GIVEN WITH PATIENT RESPONDING WELL. REQUIRES BED ALARM DUE TO NON-COMPLIANCE WITH CALLING FOR NURSING STAFF AT TIMES. PATIENT UP TO BATHROOM A COUPLE OF TIMES THIS SHIFT WITH DIARRHEA; NOT FOUL SMELLING. REQUIRES 2PA/FWW FOR AMBULATION, NON-WEIGHT BEARING ON LEFT LEG. NO ACUTE CHANGES. IV IS SALINE LOCKED.
--- NOTE | 2018-01-01 05:53 | NUR ---
PATIENT RESTING COMFORTABLY IN BED, BREATHING IS EVEN AND UNLABORED. DENIES NEEDS AT THIS TIME. CALL LIGHT WITHIN REACH, BED ALARM ON.
--- NOTE | 2018-01-01 06:41 | NUR ---
UPDATED DR. WALKER REGARDING PATIENT'S LOW URINE OUTPUT. NO NEW ORDERS AT THIS TIME.
--- NOTE | 2018-01-01 07:47 | NUR ---
BEDSIDE REPORT RECEIVED FROM NERY. PATIENT RESTING IN BED APPEARS TO BE SLEEPING AT TIME OF REPORT. NO APPARENT DISTRESS NOTED.
--- NOTE | 2018-01-01 10:00 | NUR ---
PATIENT UP TO CHAIR WITH PHYSICAL THERAPIST. PATIENT WAS MEDICATED FOR PAIN PRIOR TO THERAPY.
--- NOTE | 2018-01-01 10:20 | NUR ---
[facility] WILL BE PROVIDING ALL CARE TODAY. WILL CONTINUE TO CHECK ON PT
--- NOTE | 2018-01-01 10:22 | NUR ---
PATIENT WAS ASSISTED TO CHAIR WITH PHYSICAL THERAPIST. ORAL CARE AND BED BATH DONE. PATIENT REPORTS MINIMAL PAIN WITH MOVEMENT. PATIENT WAS MEDICATED PRIOR TO THERAPY. WILL CONTINUE TO MONITOR. CALL LIGHT IN REACH.
--- NOTE | 2018-01-01 10:54 | NUR ---
Patient moved to chair with Physical Therapy. Patient remains a two person assist with walker. LLE non weight bearing. Before sitting in chair, student nurse cleaned backside with warm disposable wipes and replaced gown. The patient brushed his teeth. Patient is saline locked.
--- NOTE | 2018-01-01 12:27 | NUR ---
Care conference complete with patient mother and sister in the room. Doctor, nurse, student nurse, case technician and physical therapy participated. Surg center nurse started IV on right upper arm with ultrasound.
--- NOTE | 2018-01-01 15:32 | NUR ---
PATIENT WAS ASSISTED BACK TO BE WITH PHYSICAL THERPIST. LEFT LEG WRAPPED WITH ROSA AND BRACE WAS PUT BACK ON. 2 TINY BLISTERS NOTED ON THE MID TARANGO OF LEFT LEG. WILL CONTINUE TO MONITOR. PATIENT WAS MEDICATED FOR 5/10 PAIN. PATIENT IS RESTING IN BED AT THIS TIME. CALL LIGHT IN REACH.
--- NOTE | 2018-01-01 16:56 | NUR ---
CARE CONFERENCE ATTENDIES: PATIENT, HIS MOTHER QUINTON, SISTER INGA STAFF: DR WALKER, MYSELF CASE MANAGEMENT, [facility], BRIGHT MORRISON AND THE STUDENT NURSE. DISCUSSED WITH PT HIS CARE, HOW WELL HE IS DOING--SLOWLY IMPROVING BUT STILL UNABLE TO HANDLE BEING HOME SAFELY AT HIS MOTHERS. THE NEED FOR HIM TO FINISH THE ROUND OF IV ANTIBX, IV SITES DIFFICULT TO OBTAIN THEREFORE HAVING US GUIDED IV START NOW. DISCUSSED LEARNING TO USE THE CRUTCHES. (WHICH PT TOLD US JUST AFTER CARE CONFERENCE THAT THE PATIENT WAS NOT SAFE ON THE CRUTCHES BUT WOULD WORK WITH HIM SEVERAL MORE TIMES TO GIVE HIM A CHANCE TO LEARN HOW TO USE THEM BETTER HE HAS NEVER USED THEM.) PT IS QUITE ADAMATE THAT HE DOES NOT WANT TO GO TO A SNF. STATING "I AM NOT GOING TO A PRISON." WE DISCUSSED THE OTHER OPTIONS BUT IT MAY COME DOWN TO HIM HAVING TO GO TO A SNF. DIRECTLY AFTER CONFERENCE WAS OVER I RETURNED TO THE PT ROOM TO DISCUSS WITH HIM THE WHOLE SNF THING AND EXPLAINED ABOUT LETTER OF DENIAL BEING ISSUED AND THE FACT THAT HE WOULD BE ASKED TO PAY FOR HIS STAY HERE, HE STATES THERE IS NO WAY I CAN AFFORD THAT. I TOLD HIM THAT IS WHY THEY HAVE SNF. TOLD HIM THAT IF THE INSURANCE WASN'T ABLE TO KEEP HIM HERE HE WOULD NEED TO GO TO A SNF. WILL FOLLOW HIM ON THIS SITUATION THROUGHOUT HIS STAY. HIS MOTHER AND SISTER WERE PRESENT THROUGH THIS CONVERSATION AND WERE AGREEING WITH THE HOSPITAL STAFF ABOUT THE SAFETY OF HIM GOING HOME. PT STATED HE WILL KNOW WHEN HE IS SAFE TO GO HOME AND HE IS NOT GOING TO A SNF.
--- NOTE | 2018-01-01 18:05 | NUR ---
ASSISTED ASSISTANT STORE MANAGER OPERATIONS TO TRANSFER PT TO THE CHAIR. PT IS NOW SITTING UP IN CHAIR SAFELY WITH CALL LIGHT IN REACH. ASSISTANT STORE MANAGER OPERATIONS [facility] IS PROVIDING ALL PT CARE
--- NOTE | 2018-01-01 18:35 | NUR ---
PATIENT HAD DONE WELL TODAY. WALKED FROM ROOM TO PT ROOM AND BACK TO HIS ROOM. PAIN CONTROL WITH OXY. BRACE ON LEFT LEFT AT ALL TIME. ROSA WRAP WAS PLACE ON LEFT LEG. TINY BLISTER NOTED ON THE LEFT TARANGO. NEW IV SITE ESTABLISHED BY SURGERY NURSE RICH. IV ABX. BILETERAL 3+ EDEMA IN THE LOWER EXTREMITIES. IMPULSIVE SOMETIMES.
--- NOTE | 2018-01-01 19:30 | NUR ---
BEDSIDE REPORT RECEIVED MEI BLEVINS. PT SITTING UP IN CHAIR, AWAKE. RATES PAIN 0/10. ROSA WRAP AND BRACE ON LEFT LEG. PT REQUESTING SEROQUEL AND VISTARIL FOR ANXIETY. IV SALINE LOCKED. CALL LIGHT IN REACH. WILL CONTINUE TO MONITOR.
--- NOTE | 2018-01-01 22:42 | NUR ---
PT CONTINUES TO DENY PAIN AT THIS TIME, ASSISTED PT FROM CHAIR TO BED WITH 2PA WITH FWW, PT ABLE TO AMBULATE NON WEIGHT BEARING. SKIN INTACT ON LEFT LEG, ROSA WRAP AND BRACE IN PLACE. FINE CRACKLES NOTED IN LLL, PT ENCOURAGED TO COUGH, DEEP BREATHE, DEMONSTRATED USE OF IS WITH MAX VOLUME INHALATION. PT ANXIOUS, PRN VISTARIL ADMINISTERED, NICOTINE LOSANGE ALSO GIVEN TO PT. ANTIBIOTIC INFUSING WNL. SCD ON RIGHT LEG. PT GIVEN CALL LIGHT, PERSONAL SUPPLIES. BED ALARM SET FOR SAFETY.
--- NOTE | 2018-01-01 22:59 | NUR ---
VITALS AND I&OS DONE AND CHARTED. PT SITTING IN CHAIR. HE NEEDS NOTHING ELSE AT THIS TIME.
--- NOTE | 2018-01-02 00:23 | NUR ---
PT SLEEPING AT THIS TIME, SCDS ON. BREATHING NON-LABORED. LIGHTS OFF IN ROOM. BED ALARM SET.
--- NOTE | 2018-01-02 00:50 | NUR ---
ANSWERED CALL LIGHT FOR IV BEEPING, DISTAL OCCLUSION. ANTIBIOTIC INFUSING WNL. URINAL EMPTIED. PT HAS NO ADDITIONAL REQUEST, CALL LIGHT IN REACH.
--- NOTE | 2018-01-02 02:50 | NUR ---
PT UP TO RESTROOM WITH RN MAYTE ASSIST WITH FWW. IV ANTIBIOTIC INFUSING. LINE FLUSHES WELL,GOOD BLOOD RETURN. PT COMPLAINING OF 6/10 PAIN IN LEFT LEG, PRN OXYCODONE ADMINISTERED. PT GIVEN FRESH ICE WATER. CALL LIGHT IN REACH.
--- NOTE | 2018-01-02 04:34 | NUR ---
ANSWERED CALL LIGHT, ZOSYN INFUSION COMPLETE. IV SALINE LOCKED AT THIS TIME, LINE HAS GOOD BLOOD RETURN, FLUSHES WELL. CRACKLES NOTED IN LLL, PT ENCOURAGED TO DEEP BREATHE, COUGH. PT CONTINUES TO HAVE PITTING EDEMA BILATERALLY LOWER EXTREMITIES, CAP REFILL <3 BILATERALLY AND PULSES PALPATED. BOWEL TONES ACTIVE X 4. PT DENIES PAIN, STATES "MORE JUST SORE". SCDS ON RIGHT LEG. CALL LIGHT IN REACH.
--- NOTE | 2018-01-02 06:17 | NUR ---
IN PT ROOM. IV FLUSHES, BLOOD RETURN WNL, IV ANTIBIOTIC NOW INFUSING AT THIS TIME. PT ASSISTED TO RESTROOM W FWW AND 1PA BY CERTIFIED CAREGIVER FEBRUARY. PT GIVEN ICE WATER. NO ADDITIONAL REQUESTS. FEBRUARY IN ROOM FOR VITALS.
--- NOTE | 2018-01-02 06:21 | NUR ---
VITALS AND I&OS DONE AND CHARTED. HELPED PT TO THE BATHROOM AND BACK TO BED WITH HIS FWW. FRESH WATER GIVEN. BEDSIDE TABLE AND CALL LIGHT IN REACH. PT NEEDS NOTHING ELSE AT THIS TIME.
--- NOTE | 2018-01-02 06:34 | NUR ---
PT UP TO RESTROOM FOR VOIDS WITH FWW AND 1PA NON-WEIGHT BEARING. BRACE IN PLACE, SKIN INTACT. CONTINUES TO RECEIVE IV ANTIBIOTICS WNL. RECEIVED PRN OXYCODONE X 1 FOR PAIN IN LEFT LEG. SCD ON WHILE IN BED. PT HAS SLEPT WELL. CRACKLES NOTED IN LLQ, PT USING INCENTIVE SPIROMETER WHILE AWAKE. SIGNIFICANT 3+ PITTING EDEMA NOTED BLE, CAP REFILL <3 BLE, BUE, PULSES PALPABLE. PT HAS USED CALL LIGHT APPROPRIATELY.
--- NOTE | 2018-01-02 07:20 | NUR ---
BEDSIDE REPORT REECEIVED FROM RAJENDRA. PATIENT AWAKE IN BED, REPORTED NO PAIN, DENIES NAUSEA AND SOB. ABX INFUSING AND IV SITE WNL. BRACE ON THE LEFT LEG WNL. CALL LIGHT IN REACH.
--- NOTE | 2018-01-02 08:15 | NUR ---
PATIENT ASSESSMENT DONE WITH STUDENT NURSE. PATIENT REPORTED TENDERNESS IN THE LEFT KNEE. DENIED NAUSEA. ABD OBESE, BOWEL TONES POSITIVE. LUNGS CLEAR EXCEPT FINE CRACKLE IN THE LEFT LOWER LOBE. 3+ EDEMA IN THE LOWER EXTREMITIES MORE SO IN THE LEFT LEG. PEDAL PULSES PALPABLE. PATIENT STATED THAT HIS LEFT KNEE IS SORE, NO PAIN UNLESS HE IS MOVING. IV SITE PATENT AND ABX INFUSING.
--- NOTE | 2018-01-02 10:15 | NUR ---
EARTH BURNER NOTICED SLEEP APNEA SYMPTOMS SUCH LONG PAUSES IN BREATH SOUNDS WHILE THE PATIENT WAS SLEEPING. THE EARTH BURNER ASKED IF THE PATIENT WAS AWARE OF THIS. THE PATIENT REPORTS BEING AWARE OF HIS SLEEP APNEA. HE REPORTS HAVING HAD MULTIPLE SURGERIES TO FIX THE ISSUE SUCH GETTING HIS TONSILS OUT. THE EARTH BURNER GAVE EDUCATION ON SLEEP APNEA MASKS. THE PATIENT IS SITTING UP IN BED. CALL LIGHT WITHIN REACH.
--- NOTE | 2018-01-02 12:13 | NUR ---
Student and instructor helped patient with a shower. Physical therapy assisted patient to commode in shower. The patient did not bear weight on affected leg.
--- NOTE | 2018-01-02 12:39 | NUR ---
LEFT LEG XAVIER HOSE GOT WET DURING THE SHOWER, A NEW XAVIER HOSE WAS APPLIED. SKIN ASSESSED, WARM, PINK AND DRY. PATIENT IS SITTING COMFORTABLY IN CHAIR EATING LUNCH. CALL LIGHT WITHIN REACH.
--- NOTE | 2018-01-02 13:07 | NUR ---
HOUSEHOLD APPLIANCES SERVICE TECHNICIAN A STUDENT NURSE ASSISTED PATIENT TO TOILET. LEFT LEG HAD NO WEIGHT BEARING ON IT. PATIENT WAS ASSISTED BACK TO BED.
--- NOTE | 2018-01-02 13:13 | NUR ---
PATIENT UNSTEADY ON HIS FEET BACK FROM THE TOILET. COMPLAINS OF PAIN WITH AMBULATION.NEXT PAIN MEDICATION IS DUE IN 2 HOURS PATIENT IS NOW RESTING IN BED. CALL LIGHT WITHIN REACH.
--- NOTE | 2018-01-02 13:33 | NUR ---
PATIENT WAS ASSISTED BACK TO BED WITH 2 PA WITH FWW. NON-BEARING WGHT ON LEFT LEG. PATIENT REPORTS THAT HIS PAIN IS BETTER ONCE HE IS IN BED. PAIN MED IS NOT DUE. CALL LIGHT IN REACH.
--- NOTE | 2018-01-02 14:03 | NUR ---
PT IS RESTING IN BED SAFELY WITH CALL LIGHT IN REACH. PT DID NOT NEED ANYTHING AT THE MOMENT
--- NOTE | 2018-01-02 17:04 | NUR ---
PATIENT WAS UP WALKING WITH PHYSICAL THERAPIST IN THE A[address] WAY WITH FWW.
--- NOTE | 2018-01-02 17:19 | NUR ---
PT'S VS AND I&O'S TAKEN AND DOCUMENTED. PT STATES HE HAS NO NEEDS AT THIS TIME. INFORMED PT TO CALL IF HE THINKS OF ANYTHING. CALL LIGHT IS REACH.
--- NOTE | 2018-01-02 18:43 | NUR ---
PATIENT A UNEVENTFUL DAY. WALKED WITH PHYSICAL THERAPY TWICE TODAY. HAD A SHOWER. BRACE ON LEFT LEG AT ALL TIME. CMS INTACT. 3+ EDEMA STILL NOTED IN THE LOWER EXTREMITIES MORE SO ON THE LEFT LEG. IV ABX. IV SITE PATENT AND FLUSHED WELL. OXY GIVEN 3TIMES FOR PAIN CONTROL. LUNGS CLEAR. ECCHYMOSIS STILL PRESENT IN THE BACK AND LEFT ARM.
--- NOTE | 2018-01-02 19:25 | NUR ---
BEDSIDE REPORT RECEIVED FROM PRINCE ANTOINE. PT AWAKE, ALERT, LYING IN BED. URINAL EMPTIED AT THIS TIME, CONCENTRATED IN COLOR. PT RATES PAIN 0/10. NO ADDITIONAL REQUESTS AT THIS TIME, IV ANTIBIOTICS INFUSING AT THIS TIME. CALL LIGHT IN REACH.
--- NOTE | 2018-01-02 20:10 | NUR ---
CHARGE NURSE ROUNDS - PT AWAKE, WATCHING TV. LEFT LEG WRAPPED WITH ROSA BANDAGE, LEG BRACE INPLACE, VERY EDEMAOTYS LOWER EXTREMITIES. PT USES ONE PERSON ASSIST AND FWW. NO C/O PAIN AT THIS TIME
--- NOTE | 2018-01-02 21:10 | NUR ---
CHECKED ON PT, PT LYING IN BED, AWAKE, WATCHING TV, LIGHTS OFF IN ROOM. NO REQUESTS AT THIS TIME. WILL CONTINUE TO MONITOR.
--- NOTE | 2018-01-02 22:30 | NUR ---
PT ASSESSMENT COMPLETE AT THIS TIME, PT IS ALERT AND ORIENTED X 3, ARMS SHAKY. ADMINISTERED PRN VISTARIL WITH SCHEDULED MEDICATIONS, PRN NICOTINE LOSANGE. PT STATES PAIN IS 6/10, ADMINISTERED PRN OXYCODONE PO 5 MG FOR PAIN IN LEFT LEG. CSM INTACT BILATERALLY LOWER EXTREMITIES, SIGNIFICANT 3+ PITTING EDEMA BLE, SOME IMPROVEMENT FROM PREVIOUS SHIFT. SCD ON RIGHT LEG. IV ANTIBIOTICS INFUSING WNL, LINE FLUSHES WELL, GOOD BLOOD RETURN. LUNGS CLEAR THROUGHOUT ALL LOBES. PT GIVEN FRESH ICE WATER, URINAL EMPTIED. CALL LIGHT IN REACH.
--- NOTE | 2018-01-03 01:20 | NUR ---
PT SLEEPING AT THIS TIME, EYES CLOSED, ON ROOM AIR, PT MOVING ARMS IN BED.
--- NOTE | 2018-01-03 01:45 | NUR ---
VITALS AND I&OS DONE AND CHARTED. FRESH WATER GIVEN BEDSIDE TABLE AND CALL LIGHT IN REACH.
--- NOTE | 2018-01-03 01:45 | NUR ---
ANSWERED CALL LIGHT, IV PUMP BEEPING, ASSESSED SITE, WNL, REPOSITIONED ARM ON PILLOW. ANTIBIOTIC INFUSING. EMPTIED URINAL. PT HAS NO ADDITIONAL REQUESTS, LIGHTS OFF IN ROOM, PTS EYES CLOSED. CALL LIGHT IN REACH.
--- NOTE | 2018-01-03 03:55 | NUR ---
IV SALINE LOCKED AT THIS TIME, ANTIBIOTIC INFUSION COMPLETE. SBA TO RESTROOM FOR VOID, URINAL EMPTIED. CRACKLES AUSCULTATED IN LLL, RLL DIMINISHED, CLEAR. PT DEMONSTRATED USE WITH INCENTIVE SPIROMETER X 2 WITH MAX INHALATION. BOWEL TONES ACTIVE X 4. PULSES FAINT BLE, 3+ PITTING EDEMA BLE, CAP REFILL <3. PT IS ALERT AND ORIENTED, ARMS SHAKY. PT STATES PAIN IS BETWEEN 6 AND 7/10 WITH AMBULATION, ADMINISTERED PRN OXYCODONE. SCD ON. CALL LIGHT IN REACH.
--- NOTE | 2018-01-03 06:08 | NUR ---
IV ANTIBIOTIC INFUSING AT THIS TIME. PT RATES PAIN IN LEFT LEG 0/10. LAB IN ROOM TO DRAW BLOOD AT THIS TIME. PT HAS PERSONAL SUPPLIES AND CALL LIGHT IN REACH.
--- NOTE | 2018-01-03 06:18 | NUR ---
PT RECEIVED PRN OXYCODONE X 2 FOR PAIN IN LEFT KNEE/LEG. PT HAS USED CALL LIGHT APPROPRIATELY AND FOLLOWED INSTRUCTION FOR NON-WEIGHT BEARING ON LEFT LEG. LOWER EXTREMITIES CONTINUE TO HAVE SIG. EDEMA BILATERALLY, FAINT PULSES PALPATED AND CAP REFILL <3. PRN VISTARIL ADMINISTERED AT HOUR OF SLEEP. PT CONTINUES TO RECEIVE IV ANTIBIOTIC WNL.
--- NOTE | 2018-01-03 07:15 | NUR ---
RECEIVED REPORT FROM RN. PATIENT IS RESTING COMFORTABLY IN BED, BREATHING IS EVEN AND UNLABORED. DENIES NEEDS AT THIS TIME. CALL LIGHT WITHIN REACH.
--- NOTE | 2018-01-03 08:37 | NUR ---
PATIENT RESTING COMFORTABLY IN BED, BREATHING IS EVEN AND UNLABORED. DENIES NEEDS AT THIS TIME. STATES HE HAS NO PAIN AT THIS TIME. ASSESSMENT DONE, MEDICATIONS GIVEN. CALL LIGHT WITHIN REACH.
--- NOTE | 2018-01-03 09:37 | NUR ---
PATIENT AMBULATED TO BATHROOM WITH 2PA/FWW. REPORTS 7/10 PAIN IN LEFT KNEE ONCE BACK IN BED, PRN OXYCODONE GIVEN PER EMAR. DENIES FURTHER NEEDS. CALL LIGHT WITHIN REACH.
--- NOTE | 2018-01-03 10:15 | NUR ---
PATIENT RESTING COMFORTABLY IN BED, BREATHING IS EVEN AND UNLABORED. DENIES NEEDS AT THIS TIME. CALL LIGHT WITHIN REACH.
--- NOTE | 2018-01-03 11:46 | NUR ---
PATIENT RESTING COMFORTABLY IN BED, BREATHING IS EVEN AND UNLABORED. REPORTS 0/10 PAIN. DENIES NEEDS AT THIS TIME. CALL LIGHT WITHIN REACH.
--- NOTE | 2018-01-03 12:58 | NUR ---
PATIENT AMBULATING HALLS WITH PT.
--- NOTE | 2018-01-03 14:00 | NUR ---
PT IS SITTING UP ON THE SIDE OF THE BED WITH CALL LIGHT IN REACH. PT ASKED FOR URINAL TO BE EMPTIED
--- NOTE | 2018-01-03 15:22 | NUR ---
PATIENT SITTING ON EDGE OF BED TALKING ON THE PHONE. PATIENT DENIES ADD'L NEEDS @ THIS TIME.
--- NOTE | 2018-01-03 18:20 | NUR ---
PT USED WALKER TO HELP HIM TO BATHROOM, VOIDED, AND RETURNED TO BED. NOW RESTING SAFELY WITH CALL LIGHT IN REACH. PT ASKED FOR A PAIN PILL
--- NOTE | 2018-01-03 20:33 | NUR ---
in bed, l leg covered with regina wrap, brace in place, legs still very edematous, visiting with family via phone. pt coop with assessment
--- NOTE | 2018-01-04 00:41 | NUR ---
RESTING, EYES CLOSED, LEFT LEG BRACE IN PLACE, NO C/O APIN OR DISTRESS
--- NOTE | 2018-01-04 01:09 | NUR ---
PT USED CALL LIGHT AFTER HE ATTEMPTED TO GET UP OVER END OF BED. HE HAD IV TUBING WRAPPED AROUND TRAPEZE BAR. STATED HE WOKE FROM A DREAM AND DID NOT KNOW WHAT HE WAS DOING. ASSISTED ONTO BSC, IV RETAPED SECURELY. REMAINS PATENT. ASSISTED BACK TO BED AND POSITIONED FOR COMFORT. BRACE ON L LEG, GOOD CMS TO FOOT. CALL LIGHT IN EASY REACH. BED ALARM ACTIVE FOR ADDITIONAL SAFETY.
--- NOTE | 2018-01-04 03:21 | NUR ---
RESTING, AWAKENS EASILY, DENIES C/O PAIN OR DISTRESS/ ROSA WRAP DRESSING AND LEG BRACE IN PLACE, LEFT LEG.
--- NOTE | 2018-01-04 06:10 | NUR ---
pt as slept this shift. SL intact, has received Sozyn abx, tolerated well. no c/o adverse reaction. Bilat legs continue to be vey edematous 3+, non pitting edema feet to mid calf, scds r leg, sarah hose bilat. left leg covered with regina wrap, sarah hose in place and leg brace in place. Gets up with 1-2 person assist and walker. Got confused x1 reoriented, back tos bed. Received nicotime lozenger x1, no c/o pain, no requests
--- NOTE | 2018-01-04 07:40 | NUR ---
bedside report from shelia. pt sleeping. no oral pain meds during night.
--- NOTE | 2018-01-04 08:40 | NUR ---
pt up in , am care in progress. rates pain 6/10 in leg - in good spirits. oral oxy po given for pain. oral nicotine lozenge given per request. pt states he is ready to go home. am meds given. denies other needs. assesment done.
--- NOTE | 2018-01-04 10:10 | NUR ---
PT VS AND I&O'S TAKEN AND DOCUMENTED. PT IS UP IN CHAIR USING THE ELECTRIC RAZOR. PT HAS NO OTHER NEEDS AT THIS TIME. INFORMED PT TO CALL IF HE NEEDS ANYTHING. CALL LIGHT IS IN REACH.
--- NOTE | 2018-01-04 13:56 | NUR ---
PATIENT WAS UP IN CHAIR, VS DONE, HE ASKED TO USE THE RESTROOM
--- NOTE | 2018-01-04 20:00 | NUR ---
up in chair visiting with family. no c/o pain
--- NOTE | 2018-01-04 22:26 | NUR ---
ASSISTED PATIENT FROM CHAIR TO BATHROOM TO BED WITH WALKER. CALL LIGHT WITHIN REACH. DENIES OF NEED AT THE MOMENT.
--- NOTE | 2018-01-05 00:05 | NUR ---
RESTING EYES CLOSED, NORESP DISTRESS. LEFT LEG ROSA WRAP, LEG BRACE INPLACE, DECREASED EDEMA NOTED.
--- NOTE | 2018-01-05 02:19 | NUR ---
MEDICATED WITH OXYCODONE 5MG PO C/O 06/26 LEFT LEG PAIN. COOP WITH ASSESSMENT
--- NOTE | 2018-01-05 02:22 | NUR ---
HEARD NOISE AND CHECKED, SAW PATIENT GOT UP BY HIMSELF. ASSISTED TO THE BATHROOM AND BACK TO BED. ICE WATER REFILLED. CALL BUTTON WITHIN REACH.
--- NOTE | 2018-01-05 05:26 | NUR ---
CURRENTLY AWAKE WATCHING TV, NO C/O PAIN. WAS MEDICATED X1 WITHOXYCODONE 5MG PER C/O LEGT LEG PAIN. EFFECTIVE. LEFT LEG COCERED WITH ROSA WRAP AND BRACE INPLACE. TEDHOSE BILAT, SCD IN R LEG. BOTH LEGS CONTINUES TO BE VERY EDEMATOUS. PT GETS UP WITH 1-2 PERSON ASSIST PLUS FWW. SL INTACT. PT RECEIVED NICOTINE LOZENGET X1 PER C/O SMOKING CRAVINGS. NO ETOH WITHDRAWAL S/SS NOTED.
--- NOTE | 2018-01-05 07:25 | NUR ---
RECEIVED REPORT FROM MAYTE MORRISON. PY IN BED WITH LEG BRACE ON LEFT LEG. SCD ON RIGHT LEG. REQUESTED ICE WATER. SL IN R ARM. NO OTHER NEEDS AT THIS TIME. [facility]
--- NOTE | 2018-01-05 07:29 | NUR ---
PT GIVEN FRESH ICE WATER, NEW RAZOR, AND A WARM WASH CLOTH. PT HAS NO OTHER NEEDS AT THIS TIME. INFORMED PT TO CALL IF HE NEEDS ANYTHING. CALL LIGHT IS IN REACH.
--- NOTE | 2018-01-05 07:58 | NUR ---
BEDSIDE SHIFT REPORT RECEIVED FROM MAYTE MORRISON AT 0725. PATIENT AWAKE AND ALERT LYING IN BED WITH LEFT LEG BRACE IN PLACE. SCDs ON RIGHT LEG WITH HEEL BOOT ON. ROOM AIR. VSS. PT HAS DRY OCCASIONAL COUGH. EATING BREAKFAST NOW. SALINE LOCKED IN KRISTEN. PT WATCHING TELEVISION. NO NEEDS AT THIS TIME.
--- NOTE | 2018-01-05 09:30 | NUR ---
SPOKE WITH PATIENT IN ROOM. PATIENT STATES HE WILL NOT GO TO "ALF" WHEN REHAB STAY BROUGHT UP. DISCUSSED THAT PT NOTES INDICATE HE IS NOT STABLE AND POSSIBLY UNSAFE TO GO HOME AT THIS TIME. ALSO STATES HE WOULD NEED WHEELCHAIR AND WALKER. PT STATES HE "BOUGHT A WALKER" BUT DOESN'T KNOW FROM WHO OR WHERE IT IS. HE STATES HIS MOTHER HAS A RAMP NOW AT HOME AND HE IS GOING HOME WITH HER TODAY. ASKED IF HIS MOTHER IS COMING IN SOON SO WE CAN ALL TALK ABOUT HIS DISCHARGE. HE STATES HE WILL CALL HER.
--- NOTE | 2018-01-05 10:00 | NUR ---
RECEIVED A CALL FROM PATIENTS MOTHER QUINTON GUSMAN. SHE STATES PATIENT CALLED HER AND WANTS TO COME THERE TODAY. SHE STATES SHE DOES NOT HAVE A RAMP. SHE STATES PATIENT ASKED HER TO GET ONE, BUT SHE DOESN'T KNOW WHO TO CALL. SHE ALSO STATES SHE DOESN'T THINK A WHEELCHAIR WILL FIT IN HER [employer] OR THROUGH [employer]. SHE STATES SHE DOESN'T THINK SHE CAN MOVE PATIENT IF HE FELL. I DISCUSSED WITH HER WE DO NOT HAVE A DISCHARGE PLAN FOR TODAY. WE DISCUSSED THAT PATIENT NEEDS TO BE ABLE TO SAFELY MOVE SELF BEFORE COMING TO HER HOME. I TOLD HER I WOULD DISCUSS THIS WITH DR JEAN. SHE WAS MUCH RELIEVED HE WAS NOT DISCHARGING TODAY.
--- NOTE | 2018-01-05 10:24 | NUR ---
SPOKE WITH DR JEAN. HE STATES WE CAN POSSIBLE PLACE PATIENT ON TRANSITIONAL CARE BED IF INSURANCE APPROVES. UTILIZATION REVIEW DEPT NOTIFIED, CLINICALS AND REQUEST BEING SENT TO INSURANCE.
--- NOTE | 2018-01-05 10:26 | NUR ---
PT REQUESTED NICOTINE LOSANGE. GAVE 5MG OXYCODONE FOR PAIN 5/10 BEFORE PHYSICAL THERAPY. PYSICAL THERAPY IN THE ROOM. PT COMPLAIN THAT TEDHOSE IS CUTTING INTO THE RIGHT LEG. PT IS UP IN THE CHAIR. CALL [facility] WITHIN REACH.
--- NOTE | 2018-01-05 12:00 | NUR ---
PT WORKED WITH PHYSICAL THERAPY. REPORTS PAIN LEVEL HAS DECREASED. COMPLAINS OF TEDHOSE DIGGING INTO RIGHT LOWER LEG. READJUSTING TEDHOSE AND ELEVATING EXTREMITY. CALL LIGHT WITHIN REACH. PT REPORTS NO OTHER NEEDS AT THIS TIME.
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
--- NOTE | 2018-01-05 13:06 | NUR ---
pt finished lunch. up in bed. reports pain as 0/10. call light within reach. brace in place on left leg. reports no other needs at this time.
--- NOTE | 2018-01-05 13:58 | NUR ---
PT RESTING IN BED WATCHING TV. HE SAID HE FELT ALITTLE BETTER.BUT WHAT REALLY CAUGHT MY ATTENTION WAS WHEN HE SAID THAT HE "FELT TRAPPED" HERE. I FOUND OUT LATER BECAUSE HE HAS TO WAIT FOR EDEMA TO GO DOWN IN LEG. PT REQUESTED PRAYER, WILL FOLLOW NEEDED
--- NOTE | 2018-01-05 14:52 | NUR ---
PT'S ONLY REQUEST IS TO HAVE MORE WATER. FRESH ICE WATER GIVEN. VS AND I&O'S TAKEN AND DOCUMENTED. PT IS AWARE TO CALL IF HE THINKS OF ANYTHING HE NEEDS. FRESH WATER GIVEN. CALL LIGHT IS IN REACH.
--- NOTE | 2018-01-05 15:13 | NUR ---
evening assessment complete. pt requested nicotine losange. reports no pain while resting. left leg in brach. with regina wrape. tedhose and scd on right leg. reports no other needs at this time. call light within reach.
--- NOTE | 2018-01-05 16:12 | NUR ---
ROUNDED WITH DR JEAN. TALKED ABOUT PLAN OF CARE AND DISCHARGE PLANNING. PT TO BE CHANGED TRO SWING BED WITH THE GOASL OF INCREASING STRENGTH WITH PHYSICAL THERAPY.
== END 2018-01-05 16:16 | disposition home or self-care (01) | DRG 896 ==
LOC: ED 13:25 → MS 18:17 → CCU 18:17 → MS 12-30 14:43
PROVIDERS: ADMIT Internal Medicine
PROC: HZ2ZZZZ Detoxification Services for Substance Abuse Treatment (ICD-10-PCS; principal; 2017-12-26)
DX: F10.239 Alcohol dependence with withdrawal, unspecified (principal); J18.9 Pneumonia, unspecified organism; E72.4 Disorders of ornithine metabolism; E87.1 Hypo-osmolality and hyponatremia; E87.2 Acidosis; S82.142A Displaced bicondylar fracture of left tibia, initial encounter for closed fracture; K70.30 Alcoholic cirrhosis of liver without ascites; K70.10 Alcoholic hepatitis without ascites; W19.XXXA Unspecified fall, initial encounter; I10 Essential (primary) hypertension; S82.832A Other fracture of upper and lower end of left fibula, initial encounter for closed fracture; F32.9 Major depressive disorder, single episode, unspecified; F41.9 Anxiety disorder, unspecified; D63.8 Anemia in other chronic diseases classified elsewhere
CPT/HCPCS: 29505; 36415; 71045; 73560; 76700; 80053; 80061; 81001; 82140; 82306; 82607; 82746; 83605; 83690; 83735; 84425; 85025; 85610; 86704; 86706; 86709; 86803; 87088; 87340; 93005; 93010; 93306; 94667; 94668; 96361; 96374; 96375; 96376; 97110; 97116; 97162; 97165; 99285; 99407; G0480; J0295; J1956; J2060; J2270; J2405; J2543; J3411; J3475; J7030; J7120; Q0177

== ENCOUNTER 2018-01-05 16:18 | Inpatient (IN) | payer OTHER ==
[~2018-01-05] VITALS: Ht 182.9 cm; Wt 120.2 kg
--- NOTE | 2018-01-05 18:47 | NUR ---
CHANGED TO SWING TODAY. STAYING POSSIBLE 7-10 DAYS FOR PHYSICAL THERAPY. AXIETY AT NIGHT. PT HAS NICOTINE LOSANGE Q1P. OXY GIVEN @ 1030. +3 EDEMA IN BILAT LE. DIURETICS INCREASED TODAY.CARDIAC DIET. LEFT LEG BRACE. NON WEIGHT BEARING. 1-2 PA WITH FWW. WORKED WITH PT TODAY. TEDHOSE ON RLE. ROSA WRAP ON RLE. NO ETOH WITHDRAWL.
--- NOTE | 2018-01-05 19:29 | NUR ---
RECEIVED REPORT FROM DAY SHIFT RN. PATIENT IS RESTING IN BED WATCHING TV. PATIENT DENIES ANY PAIN AT THIS TIME. CALL LIGHT IN REACH.
--- NOTE | 2018-01-05 19:35 | NUR ---
ASSISTED PATIENT TO THE BATHROOM AND BACK TO BED WITH WALKER. CALL BUTTON WITHIN REACH. PATIENT DENIES OF OTHER NEEDS AT THIS TIME.
--- NOTE | 2018-01-05 20:30 | NUR ---
PATIENT ASSESMENT COMPLETED. PATIENTS EVENING MEDICATIONS GIVEN PER ORDER. PATIENT GIVEN PRN PAIN MEDICATION FOR 5/10 PAIN IN HIS LEFT LEG. PATIENT GIVEN PRN NICOTINE LOZENGES PER REQUEST. PATIENT HAS EDEMA IN HIS LOWER EXT. PATIENT HAS BRACE ON HIS LEFT LEG. PATIENT DENIES ANY FURTHER NEEDS ANY FURTHER NEEDS CALL LIGHT IN REACH.
--- NOTE | 2018-01-05 22:33 | NUR ---
PATIENT ASSISTED TO THE RESTROOM. PATIENT IS A 1PA W/FWW. PATIENT IS NOW BACK IN BED RESTING. PATIENT DENIES ANY PAIN. PATIENT DENIES ANY NEEDS AT THIS TIME. CALL LIGHT IN REACH.
--- NOTE | 2018-01-06 00:23 | NUR ---
PATIENT IS RESTING IN BED. PATIENT AWOKE WHEN ROOM WAS ENTERED. PATIENT DENIES ANY PAIN OR NEEDS AT THIS TIME. CALL LIGHT IN REACH.
--- NOTE | 2018-01-06 03:48 | NUR ---
PATIENT ASSISTED TO THE RESTROOM A 1PA W/FWW. PATIENT HAD A BM. PATIENT IS NOW BACK IN BED RESTING. PATIENT HAS LVS. DRESSING ON IV CHANGED. IV FLUSHES WELL. PATIENT DENIES ANY PAIN AT THIS TIME. CALL LIGHT IN REACH.
--- NOTE | 2018-01-06 05:06 | NUR ---
PATIENT RESTED WELL THROUGHOUT THE SHIFT. PATIENT IS ON A CARDIAC DIET AND IS TOLERATING IT WELL. PATIENT GIVEN PRN PAIN MEDICATION X1. PATIENT IS A 1PA W/FWW. PATIENT HAS A BRACE ON HIS LEFT LOWER EXT. PATIENT IS NON WEIGHT BEARING ON HIS LEFT LOWER EXT. PATIENT GIVEN PRN NICOTINE LOZENGES NEEDED. PATIENT IS AAOX3 AND USES CALL LIGHT APPROPRIATELY.
--- NOTE | 2018-01-06 05:56 | NUR ---
PATIENT ASSISTED TO THE RESTROOM A 1PA. PATIENT WAS ABLE TO VOID. PATIENT IS NOW BACK IN BED RESTING. PATIENT GIVEN PRN PAIN MEDICATION PER ORDER FOR 8/10 PAIN IN HIS LEFT LOWER EXT. NO FURTHER NEEDS NOTED. CALL LIGHT IN REACH.
--- NOTE | 2018-01-06 07:47 | NUR ---
RECIEVED REPORT FROM LOTUS NOTES ADMINISTRATOR RN. PT A/O IN BED. SL RIGHT ARM. CALL LIGHT WITHIN REACH. RESPITORY RATE WNL. NO OTHER NEEDS AT THIS TIME.
--- NOTE | 2018-01-06 09:34 | NUR ---
Faxed swing bed notification to [facility] Rehabilitation Dept.
--- NOTE | 2018-01-06 11:49 | NUR ---
CARE CONFERENCE ATTENDEES: PATIENT, MOTHER TONIO, SISTER INGA, STAFF: DR JEAN, MYSELF CASE MANAGEMENT, CLAUDIA RN, HERMELINDA RN, ROBERT PT, [facility], W, [facility], DR JEAN DISCUSSED WITH THE PATIENT WHAT HIS GOALS WERE THAT HE WOULD NEED TO MEET TO BE ABLE TO GO HOME. 1. SAFELY USING THE WALKER, GO 150FT. 2. SAFELY USE RAMP TO GO UP STEP INTO HOME. DR JEAN DID DISCUSS THE NEED TO BE ABLE TO GET UP AND AROUND BY HIMSELF WITHOUT THE HELP OF ANOTHER PERSON. PT IS REAL ENTHUSIASTIC PERHAPS OVERLY SO. HE IS SURE HE CAN DO THIS WITH THE RAMP HE HAS. MOTHER STATES YES WE DO HAVE A WALKER.
--- NOTE | 2018-01-06 12:50 | NUR ---
PT UP IN CHAIR WATHCING TV. REPORTS NO PAIN AT THIS TIME. LASIX GIVEN. URINE OUTPUT IS GOOD. IV DC'D PER PHYSICAN. RR WNL. CALL LIGHT WITHIN REACH. WATER REFRESHED. NO OTHER NEEDS AT THIS TIME.
--- NOTE | 2018-01-06 15:36 | NUR ---
pt up in chair. worked with pt. tollerated well. reported that with pt walked 130feet today. reports pain 04/26. gave oxycodone 5. refreshed water. call light within reach. no other needs at this time.
--- NOTE | 2018-01-06 16:36 | NUR ---
ENTERED ROOM AFTER CARE CONFERENCE TO AGAIN VISIT THE RAMP ISSUE, WITH HIS MOTHER IN THE ROOM. SHE FINALLY STATED WELL HE HAS WHAT HE HAS IN THE BACK OF HIS PU TRUCK. PT THEN ADMITS TO WHAT SOUNDS LIKE 2 CAR RAMPS. EXPLAINED THAT THAT WOULD NOT WORK AND THEY WOULD NEED SOMETHING MORE. PT MOTHER STATES THEY HAD BEEN LOOKING ON LINE FOR A RAMP AND ORDERED ONE FROM [employer]. I THEN TALKED WITH PT ABOUT HIS FRONT WHEELED WALKER THAT HE WOULD LIKE AND PT STATED THAT HE IS 6'1" AND WEIGHS IN AROUND 260. TOLD HIM I WOULD ORDER ONE. PT STATED IF I COULD GET THE RAMP THROUGH INSURANCE THAT WOULD WORK WONDERFULLY. I CALLED AND TALKED WITH [facility] AND THEY STATE THAT MOST INSURANCES INCLUDING HIS ([employer]) DO NOT PAY FOR THEM. DID FIND OUT THAT A 4 FOOT RAMP WOULD COST $40/MONTH WHILE HE IS HEALING. WILL GET THE WALKER ORDERED FOR THE PT.
--- NOTE | 2018-01-06 18:19 | NUR ---
SWING BED PT. TOLLEREATING PT WELL. WALKED 130. GOAL IS 150. NO IV ACCESS.LABS IN THE AM. CARDIAC DIET. DIURETICS. EDEMA BILAT LE +3. NICOTINE LOSANGES Q1. PAIN MEDICATION X1 GIVEN @ 1540. AAO X3.
--- NOTE | 2018-01-06 19:35 | NUR ---
BEDSIDE REPORT RECEIVED FROM RNS CLAUDIA AND HERMELINDA. PT SITTING UP THE CHAIR, WATER, CALL LIGHT, AND PERSONAL SUPPLIES IN REACH. NO REQUESTS AT THIS TIME.
--- NOTE | 2018-01-06 20:42 | NUR ---
PT BATHROOM CALL LIGHT WAS SOUNDING. WENT TO ROOM, HE WAS IN HIS CHAIR, WITH BATHROOM CALL LIGHT STILL ON. HE SAID "I DID OK", REMINDED HIM TO WAIT FOR HELP. HE LAUGHED SAID, OK. NO OTHER NEEDS AT THIS TIME.
--- NOTE | 2018-01-06 22:10 | NUR ---
ASSISTED PT BACK TO BED, SBA WITH FWW, PT GAIT QUICK, NON-WEIGHT BEARING. LUNGS SOUND CLEAR THROUGHOUT ALL LOBES. PULSES WEAK BILATERALLY LOWER EXTREMITIES, 3+ PITTING EDEMA BLE, MILD PIDDING EDEMA UPPER LEGS, ABDOMEN. LEGS WARM, CAP REFILL <3 BILATERALLY. SCD ON RIGHT LEG, HEEL PROTECTORS ON, BRACE ON LEFT LEG. PT GIVEN FRESH ICE WATER, NO ADDITIONAL REQUESTS AT THIS TIME. PRN NICOTINE ADMINISTERED.
--- NOTE | 2018-01-07 01:07 | NUR ---
CHECKED ON PT, PT IS SLEEPING AT THIS TIME, EYES CLOSED, SNORING, LIGHTS OFF IN ROOM.
--- NOTE | 2018-01-07 03:15 | NUR ---
ANSWERED CALL LIGHT FROM RESTROOM, PT OUT OF BED WITHOUT CALLING, EDUCATED PT ON FALL RISK, SAFETY. PT STATES "HE COULDN'T WAIT". PT NOW BACK TO BED AFTER BM AND VOID, GOWNS CHANGED. BED ALARM IS SET. URINAL EMPTIED. PT C/O -06/26 PAIN IN LEFT LEG. ADMINISTERED PRN OXYCODONE FOR PAIN AND PRN NICOTINE LOSANGE. LIGHTS OFF IN ROOM, ICE WATER GIVEN TO PT. NO ADDITIONAL REQUESTS. CALL LIGHT IN PT LAP.
--- NOTE | 2018-01-07 05:27 | NUR ---
IN PT ROOM TO CHECK ON PT, BLIND AIDE IN ROOM, PT IS AWAKE, ALERT, NO REQUESTS AT THIS TIME, LIGHTS BACK OFF IN ROOM TO ALLOW PT TO REST. CALL LIGHT IN REACH.
--- NOTE | 2018-01-07 06:26 | NUR ---
PT IMPULSIVE THIS SHIFT, UP TO RESTROOM WITHOUT WALKER X 1. BED ALARM SET. PT AMBULATING WELL WITH INSTRUCTION. RECEIVING PRN OXYCODONE AVAILABLE WHEN AWAKE. PRN NICOTINE LOSANGES. PULSES WEAK, PALPATED BILATERALLY LOWER EXTREMITIES, 3+ PITTING EDEMA, SENSATION INTACT BLE.
--- NOTE | 2018-01-07 07:07 | NUR ---
FAXED CHART NOTES INCLUDING FACESHEET, ORDER, H AND P, PT KALYN STEVENS SUMMARY FROM IN[facility], PT NOTES TO [facility] FOR A BARIATRIC FRONT WHEELED WALKER FOR PT. RECIEVED FAX CONFIRMATION FROM [facility]. TALKED WITH EVERETT FROM [facility] YESTERDAY AFTERNOON ABOUT THIS WALKER AND SHE STATED IT WOULDN'T BE A PROBLEM.
--- NOTE | 2018-01-07 07:15 | NUR ---
RECIEVED REPORT FROM SWEEPER BRUSH MAKER MACHINE NURSE. PATIENT RESTING IN BED. BRACE ON LLE. NO C/O PAIN AT THIS TIME. PATIENT DENIES NEEDS. CALL LIGHT IN REACH.
--- NOTE | 2018-01-07 09:55 | NUR ---
PATIENT RESTING UP IN CHAIR. WATER PITCHER FILLED. RATES PAIN A 4/10 IN LLE. PATIENT STATES HE WOULD LIKE PAIN MEDICATION WHEN IT IS AVAILABLE AROUND 11AM. PALPABLE PEDAL PULSES. +3 PITTING EDEMA IN BLE FROM FEET UP TO HIPS. PATIENT STATES THIS IS NOT NORMAL FOR HIM. ELEVATED LLE ON PILLOW IN CHAIR. FEET ARE WARM, PATIENT ABLE TO WIGGLE TOES. BRCAE AND ROSA WRAP IN PLACE ON LLE. LUNGS ARE CLEAR. HR REGULAR. ACTIVE BS. LAST BM WAS THIS MORNING. PATIENT'S SCLERA JAUNDICED. PATIENT DENIES FURTHER NEEDS. AT THIS TIME. CALL LIGHT IN REACH. CHAIR ALARM IN PLACE.
--- NOTE | 2018-01-07 11:10 | NUR ---
PATIENT C/O PAIN IN HIS L KNEE. RATES IT 5-04/26. OXYCODONE ADMINISTERED. PATIENT DENIES FURTHER NEEDS. LLE STILL ELEVATED ON PILLOWS IN CHAIR. SWELLING HAS NOT IMPROVED. CALL LIGHT IN REACH. CHAIR ALARM IN PLACE.
--- NOTE | 2018-01-07 12:25 | NUR ---
PATIENT STATES PAIN STILL NOT AT A TOLERABLE LEVEL. STATES HIS LEFT LEG IS NOT HAVING A GOOD DAY. HE BELIEVES IT IS DUE TO THE SWELLING. LEG IS STILL ELEVATED UP IN CHAIR. PATIENT REMOVED PILLOW HOPING TO RELIEVE PAIN. TALKED WITH MD ABOUT PAIN MANAGEMENT. MD ADDED NEW ORDERS. PATIENT DENIES FURTHER NEEDS. CALL LIGHT IN REACH.
--- NOTE | 2018-01-07 12:58 | NUR ---
XRAY IN TO SEE PATIENT. PAIN MEDICATION ADMINISTERED. URINAL EMPTIED.
--- NOTE | 2018-01-07 13:30 | NUR ---
PATIENT RESTING UP IN CHAIR. STATES PAIN STILL AT A TOLERBALE LEVEL. REMOVED BRACE AND ROSA BANDAGE. PATIENT'S SKIN DRY, APPLIED LOTION. SWELLING HAS NOT DIMINISHED. DOPPLER USED TO LOCATE PEDAL PULSE. WATER PITCHER FILLED. RE-WRAPPED LLE WITH 6" ROSA WRAP. PATIENT DENIES FURTHER NEEDS, CALL LIGHT IN REACH.
--- NOTE | 2018-01-07 16:27 | NUR ---
PATIENT RESTING UP IN CHAIR. HIS LEGS AT A DANGLE. I EXPLAINED TO HIM THE IMPORTANCE OF KEEPING HIS LOWER EXTREMITES ELEVATED TO REDUCE SWELLING. PATIENT STATES HE IS AWARE AND AGREES TO KEEP THEM ELEVATED. PLACED PILLOW UNDER LLE ON CHAIR. NO CHANGE IN SWELLING TO LOWER LEGS. PATIENT STATES HIS PAIN IS ABOUT A 4-5/10. HE AGREES TO WAIT UNTIL 1710 WHEN I AM ABLE TO ADMINISTER PAIN MEDICATION. URINAL EMPTIED. PATIENT DENIES FURTHER NEEDS.
--- NOTE | 2018-01-07 17:14 | NUR ---
PATIENT RESTING UP IN CHAIR. C/O PAIN IN R KNEE 02/24. PAIN MEDICATION ADMINISTERED PER JAN. PATIENT HAVING DINNER. URINAL EMPTIED, WATER PITCHER FILLED. PATIENT DENIES FURTHER NEEDS. CALL LIGHT IN REACH.
--- NOTE | 2018-01-07 19:20 | NUR ---
BEDSIDE REPORT RECEIVED FROM PRINCE LYNN. PT SITTING UP IN CHAIR, ON PHONE. CHAIR ALARM IN PLACE, PT PROVIDED EDUCATION RE FALL PRECAUTIONS, SAFETY. PT VERBALIZED UNDERSTANDING. PT REQUESTING ICE WATER. CALL LIGHT IN REACH, URINAL EMPTIED, URINE IS YELLOW AT THIS TIME.
--- NOTE | 2018-01-07 19:40 | NUR ---
ROUNDED CHARGE. PATIENT IS RESTING IN RECLINER. PATIENT DENIES ANY PAIN. PATIENT DENIES ANY COMMENTS, QUESTIONS, OR CONCERNS. NO NEEDS NOTED. CALL LIGHT IN REACH.
--- NOTE | 2018-01-07 20:28 | NUR ---
ANSWERED CALL LIGHT, ASSISTED PT BACK TO BED. VITALS COMPLETE AT THIS TIME, HR 83, BP 115/63 (77), RR 14. PT AFEBRILE. SIGNIFICANT EDEMA 3+ BILATERALLY LOWER EXTREMITIES, THIGHS, ABD, PITTING. ADMINISTERED SCHEDULED ALDACTONE. FEINT PEDAL PULSES BILATERALLY. CAP REFILL <3 BLE. PT RATES PAIN 3/10 AT THIS TIME IN LEFT LEG. AMBULATED NON-WEIGHT BEARING WITH FWW BACK TO BED. SCD ON RIGHT LEG. LEGS ELEVATED WITH BED. ADMINISTERED PRN NICOTINE. EMPTIED URINAL, GAVE PT FRESH ICE WATER. NO ADDITIONAL REQUESTS AT THIS TIME. BED ALARM SET.
--- NOTE | 2018-01-07 23:00 | NUR ---
CHECKED ON PT, PT SLEEPING, AWAKENS TO RN ENTERING ROOM. PT HAS NO REQUESTS AT THIS TIME, WATER, CALL LIGHT, PERSONAL SUPPLIES IN REACH, SCD ON RIGHT LEG, HEEL PROTECTORS ON. WILL CONTINUE TO MONITOR.
--- NOTE | 2018-01-07 23:29 | NUR ---
WATCHING TV. FRESH ICE WATER PROVIDED. URINAL EMPTIED. NO FURTHER REQUESTS AT THIS TIME.
--- NOTE | 2018-01-08 01:07 | NUR ---
PT SLEEPING AT THIS TIME, EYES CLOSED, SNORING. LIGHTS OFF IN ROOM.
--- NOTE | 2018-01-08 02:17 | NUR ---
RESPONDED TO BED ALARM, PT LYING IN BED, AWAKE, ALARM DYSFUNCTION. PT STATES PAIN IS 3/10 IN LEFT LEG, REQUESTING PRN PAIN MEDICATION, ADMINISTERED PRN OXYCODONE FOR PAIN. EMPTIED PT'S URINAL, URINE CONCENTRATED AT THIS TIME. PRN NICOTINE LOSANGE ALSO ADMINISTERED. PT GIVEN ICE WATER. BACK IN BED. NO ADDITIONAL REQUESTS, CALL LIGHT IN REACH.
--- NOTE | 2018-01-08 03:45 | NUR ---
PT SLEEPING AT THIS TIME, EYES CLOSED, SNORING, LEGS ELEVATED, SCD ON RIGHT LEG, HEEL PROTECTORS ON.
--- NOTE | 2018-01-08 05:23 | NUR ---
PT UP TO CHAIR AT START OF SHIFT, TRANSFERRED TO BED WITH FWW NON WEIGHT BEARING. BED ALARM AND CHAIR ALARM SET THROUGHOUT SHIFT. PT NOT IMPULSIVE THIS SHIFT. RECEIVED PRN OXYCODONE X 2 FOR PAIN IN LEFT LEG. PEDAL PULSES FEINT BILATERALLY, 3+ PITTING EDEMA BLE, UPPER LEGS, ABD. LEGS ELEVATED IN BED THROUGHOUT SHIFT. NO IV ACCESS.
--- NOTE | 2018-01-08 05:35 | NUR ---
ANSWERED CALL LIGHT, ASSISTED PT TO CHAIR WITH FWW AND SBA, PT NON-WEIGHT BEARING ON LEFT LEG. PT IN CHAIR, LEGS ELEVATED. GIVEN TOWELS TO SHAVE, NEW GOWN. CALL LIGHT, PERSONAL SUPPLIES IN REACH. URINAL EMPTIED. NO ADDITIONAL REQUESTS AT THIS TIME.
--- NOTE | 2018-01-08 07:40 | NUR ---
RECIEVED REPORT FROM BASEBALL COACH NURSE. PATIENT RESTING UP IN CHAIR. LLE +4 PITTING EDEMA. LEG IS ELEVATED ON PILLOW UP IN CHAIR. REPOSITIONED ROSA BANDAGE ON LLE AND XAVIER ON RLE. BRACE IN PLACE ON LLE. PATIENT RATES PAIN 2-3/10 WHICH IS A TOLERABLE LEVEL. REFILLED WATER PITCHER. PATIENT DENIES NEEDS. CALL LIGHT IN REACH.
--- NOTE | 2018-01-08 09:00 | NUR ---
PATIENT RESTING UP IN CHAIR. RATES PAIN 3/10, 1 TAB OXYCODONE ADMINISTERED. REMOVED ROSA WRAP TO LLE AND REMOVED XAVIER TO RLE. APPLIED LOTION TO BOTH LEGS. PATIENT REFUSED SHOWER, STATES HE WASHED HIMSELF THIS MORNING. USED DOPPLER TO LOCATE BILAT PEDAL PULSES. +4 PITTING EDEMA TO L FOOT, PITTING EDEMA ALL THE WAY UP TO HIPS/LOWER ABDOMEN BILATERALLY. +2-+3 PITTING EDEMA ON R FOOT. LUNGS ARE CLEAR, HR REGULAR, ACTIVE BS. PATIENT DENIES FURTHER NEEDS. CALL LIGHT IN REACH.
--- NOTE | 2018-01-08 10:46 | NUR ---
PT WALKED TO BATHROOM WITH WALKER, VOIDED, AND IS NOW RESTING IN BED SAFELY WITH CALL LIGHT IN REACH. PT GAVE HIMSELF A PARTIAL BATH AND DOES NOT WANT TO SHOWER TODAY.
--- NOTE | 2018-01-08 11:18 | NUR ---
PATIENT RESTING IN BED. STATES HE HAD TO GET BACK TO BED BECAUSE HE FEELS LIKE HIS LEG STARTED TO SWELL UP MORE SITTING IN THE CHAIR WITH HIS lEFT LEG ELEVATED ON PILLOWS. PATIENT NOW RATING HIS LLE PAIN 7/10, STATES HIS PAIN IS MOSTLY LOCATED IN HIS L KNEE AND L FOOT. PAIN MEDICATION ADMINISTERED. RE-APPLIED XAVIER HOSE TO RLE. ROSA BANDAGE AND BRACE STILL INTACT ON LLE. PATIENT DENIES FURTHER NEEDS. CALL LIGHT IN REACH.
--- NOTE | 2018-01-08 12:45 | NUR ---
APPLIED XAVIER HOSE TO LLE. PATIENT IN BED. DENIES NEEDS. CALL LIGHT IN REACH.
--- NOTE | 2018-01-08 13:16 | NUR ---
URINAL EMPTIED. PATIENT RESTING IN BED. XAVIER HOSE ON BLE, BRACE ON LLE. PATIENT C/O PAIN IN L KNEE AND L FOOT, 1 TAB OXYCODONE ADMINISTERED. PATIENT DENIES FURTHER NEEDS. STATES HE IS VERY TIRED AND FEELS LIKE "I CAN'T KEEP MY EYES OPEN." CALL LIGHT IN REACH.
--- NOTE | 2018-01-08 16:01 | NUR ---
EDUCATED PATIENT ON FLUID RESTRICTION. PATIENT ALLOWED TO HAVE 600CC UNTIL 0600AM THIS MORNING. PATIENT VERBALIZES HE UNDERSTANDS. XAVIER HOSE TO BLE REPOSITIONED. URINAL EMPTIED. NO C/O PAIN. PATIENT DENIES NEEDS AT THIS TIME.
--- NOTE | 2018-01-08 17:56 | NUR ---
PATIENT SITTING IN CHAIR. LEGS AT A DANGLE. I EDUCATED HIM MULTIPLE TIMES TODAY ABOUT THE IMPORTANCE OF KEEPING HIS LOWER EXTREMITES ELEVATED TO REDUCE SWELLING. PATIENT VERBALIZES EVERY TIME THAT HE UNDERSTANDS. PATIENT STATES HE FEELS LIKE HE NEEDS TO STRETCH HIS LEGS AT TIMES. PATIENT ALSO HAS ONLY 80CC FLUID LEFT FOR THE EVENING. PATIENT SAYS HE'S NOT SURE IF HE WILL BE ABLE TO FOLLOW HIS FLUID RESTRICTION THIS EVENING. I ENCOURAGED HIM HE WILL BE ABLE TO FOLLOW IT BY TAKING SMALL SIPS ONCE IN AWHILE. I TOLD HIM IT IS FOR HIS OWN BENEFIT TO FOLLOW DOCTOR'S ORDERS. PATIENT ALSO RATES PAIN 5/10 IN HIS KNEE AND FOOT. PAIN MEDICATION ADMINISTERED. PATIENT DENIES FURTHER NEEDS. CALL LIGHT IN REACH.
--- NOTE | 2018-01-08 18:33 | NUR ---
PT IS SITTING UP IN CHAIR WITH FEET ELEVATED WITH CALL LIGHT IN REACH.
--- NOTE | 2018-01-08 19:20 | NUR ---
BEDSIDE REPORT RECEIVED FROM RN SHANE. PT SLEEPING IN BED, AWAKENS TO RNS ENTERING ROOM. URINAL EMPTIED FOR 250 ML YELLOW URINE. PT STATES PAIN IN LEFT LEG IS 3-4/10. ASSISTED PT TO ELEVATE LEGS WITH FOOT OF BED AND PILLOW. SCD ON RIGHT LEG, XAVIER GARNICA, BRACE IN PLACE. PT HAS 100 ML WATER REMAINING IN REACH, DISCUSSED FLUID RESTRICTION. PT GIVEN CHOCOLATE PUDDING REQUESTED. BED ALARM IN PLACE. CALL LIGHT IN REACH.
--- NOTE | 2018-01-08 20:30 | NUR ---
ROUNDED CHARGE. PATIENT IS SITTING ON THE EDGE OF THE BED. PATIENT DENIES ANY PAIN. NO NEEDS NOTED. CALL LIGHT IN REACH.
--- NOTE | 2018-01-08 20:32 | NUR ---
RESPONDED TO BED ALARM, PT UP TO SIDE OF BED TO VOID. URINAL SPILLED, ASSISTED PT TO CLEAN UP, NEW XAVIER HOSE, SCD ON, PT BACK IN BED, FEET ELEVATED WITH FOOT OF BED, PILLOW. BED ALARM SET. PT STATES PAIN UNCHANGED, 3/10 IN LEFT LEG. LIGHTS OFF IN ROOM.
--- NOTE | 2018-01-08 21:45 | NUR ---
PT ASSESSMENT, VITALS, IS AND OS COMPLETE AT THIS TIME. PT COMPLAINING OF 3/10 PAIN IN LEFT LEG, STATES PAIN IS DULL, CONSTANT. ADMINISTERED PRN OXYCODONE 5 MG. MEDICATIONS ADMINISTERED W CHOCOLATE PUDDING. 3+ PITTING EDEMA BLE, SOME IMPROVEMENT NOTED FROM PREVIOUS SHIFT, 2+ PITTING EDEMA UPPER LEGS BILATERALLY AND ON ABDOMEN. URINAL EMPTIED. SCDS ON, LEGS ELEVATED WITH FOOT OF BED, PILLOW.
--- NOTE | 2018-01-08 22:00 | NUR ---
PT UP AT SIDE OF BED, LEGS DANGLING. EDUCATED PT ON KEEPING LEGS ELEVATED. SCD ON RIGHT LEG. URINAL EMPTIED AT THIS TIME. CALL LIGHT IN REACH. NO ADDITIONAL REQUESTS AT THIS TIME.
--- NOTE | 2018-01-09 00:10 | NUR ---
PATIENT WAS FOUND UP AND WONDERING IN THE HALLWAY. PATIENT EDUCATED THAT HE NEEDED TO CALL AND HAVE STAFF WITH HIM. PATIENT STATED "WHAT ARE YOU GONNA DO WHEN I AM HOME" EDUCATED PATIENT THAT WHILE IN THE HOSPITAL PATIENTS ARE REQUIRED TO HAVE STAFF WHITH THEM WHILE AMBULATING. ESPECIALLY SINCE HE IS A FALL RISK. PATIENT ALSO PUTTING FULL WEIGHT ON LEFT LEG. EDUCATED PATIENT ON PROPER AMBUALATION. PATIENT APPEARS FRUSTRATED WITH THE RULES. PATIENT ASSISTED INTO THE RECLINER. PATIENTS BEDDING CHANGED. PROVIDED WITH A CHOCOLATE PUDDING PER REQUESTS. PATIENT GIVEN CALL LIGHT AND EDUCATED ON PROPER USE. PATIENT VERBALIZED UNDERSTANDING WITH MUCH FRUSTRATION TOWARDS STAFF. PATIENT DENIES ANY PAIN. NO FURTHER NEEDS NOTED. ALARM ON FOR SAFETY. CALL LIGHT IN REACH.
--- NOTE | 2018-01-09 01:00 | NUR ---
PATIENT WAS IN THE BATHROOM. USED PULL CORD TO CALL FOR ASSISTANCE. WHEN RN ENTERED ROOM HE WAS PARTIALLY BACK TO BED. USING THE WALKER, TOE TOUCH ON RIGHT LEG. PATIENT'S LEFT ARM HAS AN AREA THAT IS OPEN AND BLEEDING. PATIENT OFFERED A WIPE TO CLEAN THIS AREA AND HIS HANDS. PATIENT REFUSED A DRESSING TO THIS AREA. PATIENT RESTING IN THE BED. HE HAS UNHOOKED TO MIDDLE AND BOTTOM STRAP ON THE LEG BRACE AND REFUSED TO LET RN RECONNECT THESE. BED ALARM ACTIVATED. EDUCATED PATIENT ON SAFETY CONCERNS.
--- NOTE | 2018-01-09 02:09 | NUR ---
RESPONDED TO BED ALARM. PT UP AT SIDE OF BED. PT RATING PAIN 5-6/10, ADMINISTERED 10 MG PRN OXYCODONE FOR PAIN. PT PROVIDED EDUCATION RE SAFETY, PT STATES "I HAD MY CART" IN REGARDS TO [facility], EDUCATED PT TO USE CALL LIGHT, NOT TO GET OUT OF BED WITHOUT STAFF. PT VERBALIZED UNDERSTANDING. EMPTIED URINAL. SCD ON RIGHT LEG, BED ALARM SET. CALL LIGHT GIVEN TO PT. PT ALSO HAD UNDONE STRAPS ON BRACE, EDUCATED ON STABILIZATION NEED FOR LEFT LEG. PT GIVEN CHOCOLATE PUDDING. LIGHTS OFF IN ROOM.
--- NOTE | 2018-01-09 04:07 | NUR ---
PT SLEEPING AT THIS TIME, EYES CLOSED, SNORING. LEGS ELEVATED WITH FOOT OF BED AND PILLOW. BED ALARM SET. SCD ON.
--- NOTE | 2018-01-09 06:31 | NUR ---
PT OUT OF ROOM IMPULSIVELY, ALARM SOUNDING, ASSISTED PT BACK TO CHAIR, CHAIR ALARM IN PLACE. EDUCATION AND SAFETY INSTRUCTION PROVIDED TO PT PT BEARING WEIGHT ON NON-WEIGHT BEARING LEG. URINAL EMPTIED. CALL LIGHT IN REACH.
--- NOTE | 2018-01-09 06:44 | NUR ---
PT IMPULSIVE THROUGHOUT SHIFT, BED ALARM AND CHAIR ALARM IN PLACE. PT CONTINUES TO REMOVE CHAIR ALARM, BEAR WEIGHT ON AFFECTED LEG DESPITE EDUCATION. PT HAS BEEN IN BED WHILE COMPLIANT W LEGS ELEVATED. ON 1800 ML FLUID RESTRICTION. NO IV ACCESS.
--- NOTE | 2018-01-09 06:51 | NUR ---
EMBEDDED SYSTEMS SOFTWARE DEVELOPER PHONED DR. JEAN, UPDATED ON IMPULSIVENESS THROUGHOUT SHIFT. PT TRANSFERRED TO ROOM 110 FOR CLOSE OBSERVATION FROM NURSES STATION FOR SAFETY.
--- NOTE | 2018-01-09 11:00 | NUR ---
PATIENT UP WITH PHYSICAL THERAPY THIS MORNING. TOLERATING ACTIVITY WELL ROBERT FROM PHYSICAL THERAPY DISCHARGED FROM HER SERVICE, PROVIDED PATIENT OXYCODONE PRN FOR PAIN CONTROL. PATIENT ATE BREAKFAST, AND GAVE SELF A BED BATH WITH STBY ASSIST. VS STABLE.
--- NOTE | 2018-01-09 13:32 | NUR ---
RECIEVED A PHONE CALL FROM NANCI AT [facility] ABOUT THIS PT AND IF AND WHEN WE KNEW HE WOULD BE BEING DC'D AND IF HE IS SAFE FOR DC. TOLD HER I THOUGHT HE IS BEING DC EITHER TODAY OR TOMORROW.
--- NOTE | 2018-01-09 14:00 | NUR ---
PATIENT STANDING IN ROOM USING URINAL, CALLING FOR ASSISTANCE. SOMETIMES WHISTLES FOR STAFF TO ASSIST. EATING WELL, WATCHING TELEVISION AND DOING CROSSWORD PUZZLES.
--- NOTE | 2018-01-09 15:39 | NUR ---
01/09/18 PT Janay and myself made home safety eval at patient's mothers home where patient will be staying after D/C per Keiry's approval. There is a 10" step entering the home. The front door width is 33.5", width of henderson is 35.5", Bathroom door width 25.5, in bathroom from wall to sink is 26.5", toilet height just < 18", Bedroom enterence 29", entry to family room 35", distance across home ~ 35', and distance from bed to toilet ~ 20'. Janay recommends a 6' ramp, heavy duty w/c, walker and shower bench to meet a safe home environment.
--- NOTE | 2018-01-09 15:42 | NUR ---
FAXED RX FOR WC TO [facility]. SPOKE WITH [facility]T SHE SAYS SHE WILL GETTING THE AUTH SHE STATES SHE IS STILL WAITING ON THE AUTH FOR [facility]. INFORMED HER THE PT WAS BEING DC'D TOMORROW. RECIEVED CONFIRMATION THAT FAX WAS SENT.
--- NOTE | 2018-01-09 17:04 | NUR ---
PATIENT DISCHARGED FROM PHYSICAL THERAPY. HOME VISIT WAS DONE TODAY BY ERADICATOR. PLAN FOR PATIENT TO HAVE 6FT RAMP AND SHOWER CHAIR AND POSSIBLE WC FOR HOME. MAY DISCHARGE HOME TODAY OR TOMORROW. UNEVENTFUL DAY, PATIENT APPROPRIATE AND CALM WITH STAFF.
--- NOTE | 2018-01-09 19:00 | NUR ---
ROUNDED CHARGE. PATIENT IS UP IN RECLINER. PATIENT DENIES ANY NEEDS. NO COMMENTS, QUESTIONS, OR CONCERNS NOTED. CALL LIGHT IN REACH. AND CHAIR ALARM IS ON.
--- NOTE | 2018-01-09 19:15 | NUR ---
BEDSIDE REPORT RECEIVED FROM PRINCE MOTTA. DR. JEAN IN PT ROOM ASSESSING PT AND DISCUSSING PLAN FOR DISCHARGE. PT SITTING UP IN CAHIR. URINAL EMPTIED AT THIS TIME. PT HAS 440 ML FLUID REMAINING FOR NIGHT. CALL LIGHT IN REACH.
[2018-01-09] MEDS ORDERED: XIFAXAN550 MG PO (19:16)
[2018-01-09] MEDS ORDERED: NICORETTE4 M2 BUCCAL (19:17)
[2018-01-09] MEDS ORDERED: SPIRONOLACTONE100 MG PO (19:17)
[2018-01-09] MEDS ORDERED: SEROQUEL100 MG PO (19:18)
[2018-01-09] MEDS ORDERED: POTASSIUM CHLO20 ME1 PO (19:19)
[2018-01-09] MEDS ORDERED: LACTULOSE20 GM/30 M PO (19:19)
[2018-01-09] MEDS ORDERED: FUROSEMIDE40 MG PO (19:20)
[2018-01-09] MEDS ORDERED: FAMOTIDINE20 MG PO (19:21)
[2018-01-09] MEDS ORDERED: PREDNISOLO20 MG/5 ML PO (19:25)
[2018-01-09] MEDS ORDERED: D-20002000 UNIT PO (19:27)
[2018-01-09] MEDS ORDERED: OXYCODONE HCL5 MG PO (19:29)
--- NOTE | 2018-01-09 20:02 | NUR ---
ANSWERED CALL LIGHT, ASSISTED PT BACK TO BED FROM CHAIR W FWW. BRACE OUT OF POSITION ON LEFT LEG PT UNDID BRACE, ASSISTED TO REPOSITION BRACE FOR STABILIZATION LEFT LEG, PT VERBALIZED UNDERSTANDING. PT ABLE TO AMBULATE W FWW NON-WEIGHT BEARING WITH INSTRUCTION. BED ALARM SET. PERSONAL SUPPLIES IN REACH, LIGHTS OFF IN ROOM.
--- NOTE | 2018-01-09 20:25 | NUR ---
PT ASSESSMENT COMPLETE, PEDAL PULSES FEINT BILATERALLY.3+ EDEMA BLE, FEET. EDEMA IN THIGHS, ABDOMEN MODERATE, IMPROVEMENT NOTED FROM PREVIOUS SHIFT, PT IN BED WITH LEGS ELEVATED, SCD ON RIGHT LEG. FINE CRACKLES NOTED LLL, PT INSTRUCTED TO USE INCENTIVE SPIROMETER, DEMONSTRATED USE X 1 WITH 2500 MAX EFFORT. PT GIVEN 200 ML ALLOTTED WATER, PUDDING. NO ADDITIONAL REQUESTS AT THIS TIME, RATES PAIN IN LEFT LEG 3/10, "DULL, ACHE". EDUCATED RE PAIN MEDICATIONS AND AVAILABILITY. CALL LIGHT IN REACH, BED ALARM SET.
--- NOTE | 2018-01-09 22:33 | NUR ---
PT AWAKE, LYING IN BED, TALKING ON PHONE AT THIS TIME, BED ALARM SET.
--- NOTE | 2018-01-09 23:37 | NUR ---
IN ROOM TO CHECK ON PT, ADMINISTERED PRN OXYCODONE FOR PAIN IN LEFT KNEE/LEG, /10 "ACHE". URINAL EMPTIED. CALL LIGHT IN REACH. BED ALARM SET FOR SAFETY. SCD ON RIGHT LEG, BRACE IN PLACE LEFT LEG.
--- NOTE | 2018-01-10 01:58 | NUR ---
PT SLEEPING AT THIS TIME, EYES CLOSED, SNORING, VISIBLE CHEST RISE, LIGHTS OFF IN ROOM, BED ALARM SET.
--- NOTE | 2018-01-10 02:55 | NUR ---
RESPONDED TO BED ALARM IN PT ROOM, PT UP AT SIDE OF BED, ASSISTED PT BACK IN BED, LEGS ELEVATED. PT GIVEN ALLOTTED 240 ML WATER. URINAL EMPTIED. NO ADDITIONAL REQUESTS. PT WATCHING TV, LIGHTS OFF IN ROOM.
--- NOTE | 2018-01-10 04:46 | NUR ---
CALL LIGHT ANSWERED, PT AWAKE IN BED, REQUESTING CHOCOLATE PUDDING. SCD ON RIGHT LEG. NO ADDITIONAL REQUESTS AT THIS TIME. CALL LIGHT IN REACH.
--- NOTE | 2018-01-10 06:08 | NUR ---
BED ALARM SOUNDING, PT UP AT SIDE OF BED, WEIGHT ON LEFT LEG. PROVIDED EDUCATION TO PT TO NOT BEAR ANY WEIGHT, PRESSURE ON LEG. PT IRRITABLE AT THIS TIME, BACK IN BED, GAVE PT 200 ML FREE WATER AT THIS TIME PER REQUEST. BED ALARM SET. SCD ON. CALL LIGHT IN REACH.
--- NOTE | 2018-01-10 06:09 | NUR ---
PT HAS SLEPT THROUGHOUT SHIFT, LEGS ELEVATED, SCD, XAVIER GARNICA ON. CONTINUES TO HAVE 3+ PITTING EDEMA BILATERALLY IN FEET, 2+ PITTING EDEMA BILATERALLY IN LEGS. PT IMPULSIVE, DETACHING BRACE FROM LEFT LEG. BED ALARM AND CHAIR ALARM IN PLACE THROUGHOUT SHIFT. RECEIVED PRN OXYCODONE FOR PAIN AVAILABLE, MANAGING PAIN EFFECTIVELY. ON 1800 ML FLUID RESTRICTION.
--- NOTE | 2018-01-10 07:00 | NUR ---
recieved report from carpenter and joiner rn. pt up in chair. reports no pain at this time. no iv access. brace on left leg. tedhose in place. pt a/o. call light within reach. visible from nursing station. requested fluid. reeducated on fluid restriction and will give 300ml for breakfast. no other needs at this time.
--- NOTE | 2018-01-10 10:30 | NUR ---
PT UP TO CHAIR WITH SBA. TRASFERED WELL AND TOLLERATED WELL. CALL LIGHT WITHIN REACH. LEGS ELEVATED. BRACE ON LEFT LEG. TEDEHOSE IN PLACE. NO OTHER NEEDS AT THIS TIME.
--- NOTE | 2018-01-10 11:45 | NUR ---
PT UP IN CHAIR FOR LUNCH. DOEST SEEM TO WANT TO COMPLY WITH FLUID RESTRICITONS. PT IS DEMANDING WATER. REEDUCATED ON RESTRICTION. PT NODDED HEAD BUT WAS UNINTERESTED. CALL LIGHT WITHIN REACH.
--- NOTE | 2018-01-12 17:50 | NUR ---
FAXED CHART NOTES INCLUDING FACESHEET, ORDER, H AND P, DC SUMMARY, PT AND OT EVAL AND NOTES TO HOME HEALTH FOR PT, OT, AND RN.
--- NOTE | 2018-01-16 11:34 | NUR ---
Follow up phone call with patient Paul as assigned CHW. Patient states he is doing well overall. They put in the ramp for the entrance to front door as there is a 10" step. Don states this is working good. Paul is also using a walker to be mobile in the tighter areas of the house where is wheelchair will not fit; down the henderson to bedroom and bathroom. Paul did state that his left leg was still a bit swollen but it will take time to heal. He has a follow up appointment with his PCP Dr. Lawton this week but Dr. Lawton did not have any of his hospital stay information. I let Don know that I would send Dr. Lawton his information to review and Dr. Lawton could follow up with him if he had any concern. I will not be follow this patient any longer unless he makes contact for further assistance.
== END 2018-01-10 13:34 | disposition home health service (06) | DRG 560 ==
LOC: MS 16:18
PROVIDERS: ADMIT Internal Medicine
DX: S82.142D Displaced bicondylar fracture of left tibia, subsequent encounter for closed fracture with routine healing (principal); E72.4 Disorders of ornithine metabolism; W18.30XD Fall on same level, unspecified, subsequent encounter; K70.10 Alcoholic hepatitis without ascites; F10.20 Alcohol dependence, uncomplicated; I10 Essential (primary) hypertension; F41.9 Anxiety disorder, unspecified; F32.9 Major depressive disorder, single episode, unspecified; S82.832D Other fracture of upper and lower end of left fibula, subsequent encounter for closed fracture with routine healing
CPT/HCPCS: 36415; 73590; 80053; 94667; 97110; 97116; 97162; 97530; 97535

== ENCOUNTER 2018-01-25 19:13 | Inpatient (IN) | payer OTHER ==
[~2018-01-25] VITALS: Ht 182.9 cm; Wt 121.6 kg
[~2018-01-25 19:13] MED LIST changes: +D-20002000 UNIT PO; +FAMOTIDINE20 MG PO; +FUROSEMIDE40 MG PO; +LACTULOSE20 GM/30 M PO; +NICORETTE4 M2 BUCCAL; +OXYCODONE HCL5 MG PO; +POTASSIUM CHLO20 ME1 PO; +PREDNISOLO20 MG/5 ML PO; +SPIRONOLACTONE100 MG PO; +XIFAXAN550 MG PO
--- NOTE | 2018-01-25 23:40 | NUR ---
PATIENT ARRIVED TO FLOOR BY STRETCHER. ABLE TO MOVE HIMSELF INTO BED WITH FREQUENT ENCOURAGEMENT. PATIENT IS ORIENTED TO SELF, EVENT AND SURROUNDINGS BUT DIFFICULTY FOLLOWING DIRECTIONS. UNABLE TO GIVE MORE THAN 1-2 WORD ANSWERS. PATIENT IS JAUNDICE, ANXIOUS, AND RESTLESS. REPORTS PAIN IN RIGHT KNEE. ABD IS MODERATLEY DISTENDED, TENDER, AND BOWEL SOUNDS ACTIVE. LUNG SOUNDS ARE DIFFICULT TO HEAR DUE TO PATIENT GRUNTING AND LOUD SIGHING ON EXHALATION. LOWER EXTREMITIES ARE SWOLLEN, MORE SO ON THE RIGHT. 3+ PITTING EDEMA IN BOTH FEET. CMS INTACT. PATIENT UP TO THE BATHROOM, UNABLE TO FOLLOW COMMANDS AND UNABLE TO URINATE. PATIENT INCONTINENT OF URINE IN BED. LINENS CHANGED. ATTENDS PLACED ON PATIENT. PATIENT 2PA FOR AMBULATION. PATIENT BACK IN BED ATTEMPTING TO SLEEP. BED ALARM ON.
--- NOTE | 2018-01-26 01:08 | NUR ---
PATIENT'S GLUCOSE IN ED WAS 472. MD AWARE, PLANS TO START FINGER STICKS AND SS INSULIN IN THE MORNING.
--- NOTE | 2018-01-26 01:22 | NUR ---
PATIENT APPEARS TO BE SLEEPING. BREATHING LOUDLY AND GROANING OCCATIONALLY.
--- NOTE | 2018-01-26 03:04 | NUR ---
PATIENT IS GROWNING LOUDING. HE DOES NOT ANSWER ANY QUESTIONS. HE IS RESTLESS BUT STAYING IN THE BED FOR NOW. BED ALARM ON.
--- NOTE | 2018-01-26 03:05 | NUR ---
VITALS AND I&OS DONE AND CHARTED. BEDSIDE TABLE AND CALL LIGHT IN REACH.
--- NOTE | 2018-01-26 03:14 | NUR ---
PATIENT ATTEMPTING TO GET OUT OF BED. HE IS NOW NONVERBAL. UNABLE TO SAY ANY RESPONCE AND DOES NOT ACKNOWLEDGE THE STAFF. VS WNL, HR SLIGHTLY ELEVATED. PATIENT IS SHAKING AND EYES ROLLING BACK IN HIS HEAD PERIODICALLY, PATIENT SITTING UP ON EDGE OF BED. ATTEMPTED TO REORIENT WITHOUT SUCCESS. MD CONTACTED. COUNSELOR MARRIAGE AND FAMILY AND LOSS PREVENTION REPRESENTATIVE IN ROOM. REPOSITIONED PATIENT TO BED. ORDERS TO PROVIDED PRN ATIVAN RECIEVED FROM .
--- NOTE | 2018-01-26 03:37 | NUR ---
ATIVAN 1MG PROVIDED TO PATIENT. PATIENT ABLE TO RELAX AND REST BACK INTO THE BED. REPOSTIIONED HIM AND PROVIDED FRESH BRIEFS, HE WAS INCONTINENT OF URINE. PATIENT RESTING QUIETLY NOW, RR 22. BED ALARM ON. CLOSELY VISUALLY MONITORING.
--- NOTE | 2018-01-26 04:30 | NUR ---
patient resting in bed. snoring louding. o2 sat 96% on ra. bed alarm on.
--- NOTE | 2018-01-26 06:23 | NUR ---
PATIENT CONTINUES TO TRY TO EXIT THE BED. HE IS UNSTEADY, AND NONVERBAL. HE DOES NOT RESPOND TO HIS NAME. PATIENT REQUIRES CONSTANT MONITORING.
--- NOTE | 2018-01-26 06:24 | NUR ---
PATIENT ARRIVED TO THE FLOOR AROUND 2324. HE HAS BECOME PROGRESSIVLY MORE UNRESPONSIVE THROGUHOUT THE SHIFT. UNABLE TO RESPOND VERBALLY, UNORIENTED TO ALL. PRN ATIVAN GIVEN X1. PATIENT IS SALINE LOCKED. ORDERED TO BE NONWEIGHT BEARING ON LEFT LEG, DOES NOT FOLLOW DIRECTIONS. PATIENT INCONTINENT OF URINE. UNKNOWN LAST BM. HR 98-115. LAST BLOOD GLUCOSE 168. PATIENT REQUIRES CONSTANT MONITORING DUE TO HIGH FALL RISK AND IMPULSIVE BEHAVIOR.
--- NOTE | 2018-01-26 07:54 | NUR ---
PT IS SLEEPING SOUNDLY, DID NOT AROUSE WHEN THIS RN ASSESSED HIS LUNGS, HEART, SKIN, PULSE. MOST OF AM ASSESSMENT COMPLETE, BUT WILL COMPLETE REST WHEN PT AWAKE. BG CHECKED, 147. PT DID NOT AROUSE WHEN LANCET WAS USED. RESPIRATORY RATE 20.
--- NOTE | 2018-01-26 08:43 | NUR ---
FAROUSED PT TO TAKE AM MEDICATIONS. MOST VOCALIZATIONS WERE GRUNTS AND SOME MOANS. PT DID RESPOND "GOOD MORNING" WHEN NURSING STAFF SAID GOOD MORNING TO HIM. PT ALSO ANSWERED "[place]" WHEN ASKED WHERE HE IS. PT DID NOT ANSWER ANY MORE QUESTIONS. DID OPEN EYES WHEN THIS RN WAS SPEAKING TO HIM, TRACKED WITH EYES, BUT PT DROWSY. AFTER TAKING AM MEDICATIONS WITH APPLESAUCE, PT SAT UP FOR SEVERAL MINUTES IN BED, THEN ROLLED TO SIDE AND IS AGAIN RESTING WITH EYES CLOSED.
--- NOTE | 2018-01-26 09:33 | NUR ---
PT INCONTINENT OF LARGE AMOUNT OF URINE, LINNENS CHANGED, PT ASSISTED TO CLEAN UP, NEW ATTENDS PLACED. FOLLOWING THIS, PT BECAME AGITATED, VERY RESTLESS, VOCALIZING GRUNTS LOUDLY. PT OFFERED URINAL, PT VOIDED 425 CC URINE IN URINAL. ONCE PT VOIDED, PT CALM, NO LONGER RESTLESS, IS NOW RESTING QUIETLY WITH EYES CLOSED.
--- NOTE | 2018-01-26 11:18 | NUR ---
STARTED ZOSYN IV. CHECKED BG, 180. PT RESTLESS. URINAL OFFERED X 4, PT VOIDED ONCE.
--- NOTE | 2018-01-26 13:20 | NUR ---
PT HAD MEDIUM SOFT, JERRY TEXTURED BM ON BED BREWSTER. PT THEN WAS INCONTINENT OF AN XL BM, SOFT, JERRY TEXTURED. ASSISTED TO CLEAN UP. PT NOW SITTING IN BED, HOB ELEVATED, SISTER AT BEDSIDE. PT RESTING QUIETLY WITH EYES CLOSED.
--- NOTE | 2018-01-26 13:49 | NUR ---
PT ATE BOWL OF MASHED POTATOES AND GRAVY, CUP OF YOGURT, AND DRANK 100% OF A CHOCOLATE GLUCERNA FOR LUNCH. REQUIRED FULL ASSISTANCE WITH FEEDING.
--- NOTE | 2018-01-26 14:36 | NUR ---
PT SLEEPING SOUNDLY IN BED, NO S/S DISTRESS OR DISCOMFORT NOTED.
--- NOTE | 2018-01-26 17:16 | NUR ---
PT IN BED, HOB ELEVATED. HAS ORDERED MAGNESIUM 2 GM IV INFUSING. TOOK ORDERED LACTULOSE. PT DRANK WATER WITH ASSISTANCE FROM THIS RN.
--- NOTE | 2018-01-26 18:16 | NUR ---
PT ATE 100% OF DINNER: MASHED POTATOES, TOMATO SOUP WITH CRACKERS, YOGURT, CHOCOLATE PUDDING, AND A CHOCOLATE GLUCERNA. PT ATE WITH ASSISTANCE FROM THIS RN. PT REMAINS CONFUSED AND FORGETFULL, BUT DOES RECOGNIZE HIS SISTER, WHO IS IN ROOM WITH PT AT THIS TIME. PT ALSO ACCURATELY STATED THAT HE IS IN [facility]. PT DISORIENTED TO EVENTS, DATE, PERSON AT TIMES.
--- NOTE | 2018-01-26 18:19 | NUR ---
PT DROWSY, DISORIENTED, UNABLE TO ANSWER MOST QUESTIONS, AT TIMES ONLY GRUNTING, HUMMING, OR GROANING IN RESPONSE TO STAFF. PT DID EAT 50% OF LUNCH, AND 100% OF DINNER WITH ASSISTANCE FROM THIS RN, AND ALSO DRANK A GLUCERNA WITH LUNCH AND DINNER. PT INCONTINENT OF URINE AT TIMES, BUT DOES BECOME RESTLESS, AGITATED, AND ANSWER "YES" AT TIMES WHEN ASKE IF HE NEEDS TO PEE. PT WAS INCONTINENT OF STOOL X 2. PT IS RECIEVING LACTULOSE. IS NOW RECIEVING A BOLUS OF NS, 1000 ML OVER 2 HOURS. RECIEVED MAGNESIUM SULFATE 2 GM IV X 1. FOLLOWING BOLUS, PT WILL RECIEVE NS AT 125 CC/HR CONTINUOUS. PT IS IMPULSIVE AT TIMES, ATTEMPTING TO GET UP OUT OF BED QUICKLY, REQUIRING REPETATIVE VERBAL CUES NOT TO GET UP OUT OF BED, HE IS NON WEIGHT BEARING TO LLE, AND NOT COGNIZANT ENOUGH TO FOLLOW INSTRUCTIONS FOR SAFE TRANSFERS.
--- NOTE | 2018-01-26 19:13 | NUR ---
RECEIVED REPORT, PT IS RESTING WITH EYES CLOSED AT THIS TIME, RESPIRATIONS ARE EVEN AND NONLABORED. ZOSYN IS INFUSING AND BOLUS OF NS. BED ALARM IS ON AND CALL LIGHT IS WITHIN REACH. PT IS A 1:1 AT THIS TIME.
--- NOTE | 2018-01-26 19:51 | NUR ---
PT AWOKE MAKING MOANING NOISES AND JERKING AROUND. ASKED PT IF HE NEEDS TO USE THE URINAL HE SAID "YA" ASSISTED PT WITH URINAL. HIS EYES ARE CLOSED AT THIS TIME, RESPIRATIONS ARE EVEN AND NONLABORED 95% ON PULSEOX.
--- NOTE | 2018-01-26 20:10 | NUR ---
PT WAS MOVING AROUND IN BED AND ACCIDENTALLY PULLED HIS IV OUT. CHANGED BEDDING AND GOWN AND CLEANED UP. STARTED NEW IV, PT TOLERATED WELL. PT IS AWAKE IN BED AT THIS TIME AND BEING APPROPRIATE ANSWERING QUESTIONS WITH SHORT ANSWERS.
--- NOTE | 2018-01-26 20:58 | NUR ---
PT PULLED IV OUT, ASSISTED HIS RN IN PLACING A NEW IV, PT TOLERATED WELL. PT REMAINS CONFUSED AT THIS TIME, WILL ANSWER YES OR NO QUESTIONS APPROPRIATLY SOMETIMES. PT IS NOT AGITATED, HE IS COOPERATIVE AT THIS TIME. NEW BEDDING AND GOWN PLACED. PT NOW LAYING IN BED, NO DISTRESS. RN 1:1 WITH PT.
--- NOTE | 2018-01-26 21:15 | NUR ---
PT MOANS AND GRUNTS WHEN HE NEEDS TO USE URINAL, HELPED PT USE URINAL. HE IS RESTING IN BED AWAKE HUMMING.
--- NOTE | 2018-01-26 21:38 | NUR ---
SCANT AMOUNT OF BLOOD SEEN UNDER PT'S NOSE. UPON CLOSER INSPECTION THERE WAS A SMALL SCRATCH LINE THAT MAY HAVE BEEN THE SOURCE. HELPED CLEAN UP THE SITE AND PT SAID "OUCH" WILL CONTINUE TO MONITOR.
--- NOTE | 2018-01-26 22:28 | NUR ---
PT MOANED AND MOVED AROUND BUT IS BACK TO SLEEP, RESPIRATIONS EVEN AND NONLAORED. BED ALARM IS ON.
--- NOTE | 2018-01-26 23:31 | NUR ---
PT WAS MOANING AND CALLING OUT. ASKED IF HE NEEDS TO USE THE URINAL HE SAID NO. COVERED PT BACK UP, PT IS NOT STATING WHAT HE NEEDS AT THIS TIME.
--- NOTE | 2018-01-27 00:28 | NUR ---
PT IS RESTING WITH EYES CLOSED, RESPIRATIONS EVEN AND SNORING. WOKE PT BRIEFLY TO SCAN BRACLET AND ADMINISTER ZOSYN.
--- NOTE | 2018-01-27 01:41 | NUR ---
PT IS RESTING WITH EYES CLOSED, RESPIRATIONS EVEN AND NONLABORED. PT CONTINUES TO MOAN IN HIS SLEEP AT TIMES.
--- NOTE | 2018-01-27 03:25 | NUR ---
PT IS RESTING WITH EYES CLOSED, RESPIRATIONS EVEN AND NONLABORED. BED ALARM IS ON.
--- NOTE | 2018-01-27 04:45 | NUR ---
NEW BAG NS HUNG AND INFUSING WELL AT 125ML/HR, SITE INTACT, PT AWAKE BRIEFLY, ADDITIONAL BLANKET GIVEN, REPOSITIONED SELF ON SIDE.
--- NOTE | 2018-01-27 05:02 | NUR ---
PT IS RESTING IN BED WITH EYES CLOSED, RESPIRATIONS EVEN AND NONLABORED. NURSE AT BEDSIDE 1:1.
--- NOTE | 2018-01-27 05:30 | NUR ---
PT HAD LARGE SOFT BROWN STOOL VIA BEDPAN, LINEN CHANGED, PT COOPERATIVE, ATTEMPTING TO ASSIST, WARM BLANKET GIVEN PER REQUEST, TAKING WATER WELL.
--- NOTE | 2018-01-27 06:00 | NUR ---
LAB IN FOR AM BLOOD DRAW, PT TOLERATED WELL
--- NOTE | 2018-01-27 07:41 | NUR ---
PATIENT IN A GOOD MOOD. CURRENTLY HAVING NO PAIN. 3+ PITTING EDEMA IN BILATERAL LOWER EXTREMITIES. PATIENT IS ORIENTED TO SELF AND PLACE, BUT HAS NO IDEA WHAT YEAR IT IS AND BELIEVES ASUNCION IS STILL PRESIDENT. 20g IV RUNING WITHOUT DIFFICULTY IN HIS RFA. LUNGS ARE CLEAR, BUT DEMMINISHED IN THE BASES. PATIENT SEEMS HAPPY, JUST A LITTLE CONFUSED, BUT PER REPORT HE IS MUCH BETTER THAN YESTERDAY.
[2018-01-27] MEDS ORDERED: XIFAXAN550 MG PO (08:53)
[2018-01-27] MEDS ORDERED: SEROQUEL100 MG PO (08:55)
--- NOTE | 2018-01-27 09:06 | NUR ---
MED REC COMPLETE
--- NOTE | 2018-01-27 09:35 | NUR ---
FORMING MACHINE UPKEEP MECHANIC HERE TO TALK TO PATIENT ABOUT HEALTHIER FOODS TO EAT WITH HIS DIABETES.
--- NOTE | 2018-01-27 10:00 | NUR ---
PATIENT NEEDED TO USE THE BEDPAN/FRACTURE BREWSTER. HE DID NOOT WANT TO USE THE BEDSIDE COMMODE.
--- NOTE | 2018-01-27 11:46 | NUR ---
PATIENT'S BLOOD SUGAR WAS 199, HE GOT 3 UNITS OF INSULIN AND IS CURRENTLY EATING HIS LUNCH.
--- NOTE | 2018-01-27 14:04 | NUR ---
CAME IN WITH SOME STUDENTS AND EXAMINED THE PATIENT. MORE FAMILY HAVE ARRIVED TO VISIT. PATIENT'S MENTATION HAS GOTTEN BETTER THROUGH THE DAY VS HAVE BEEN STABLE. PATIENT HAS HAD GOOD PO INTAKE AND VERBAL ORDER FROM TO DC MAIN IV FLUIDS. PATIENT HAS HAD 2 LARGE LIQUID BM'S, SAID ONCE HE HAS ONE MORE BM WE CAN STOP THE LACTULOSE FOR THE DAY AND RESTART IT AGAIN TOMORROW.
--- NOTE | 2018-01-27 14:31 | NUR ---
BING FROM PT IS HERE NOW TO HELP ADJUST PATIENT'S BRACE AND TRY TO GET HIM UP OUT OF BED. FAMILY STILL AT BEDSIDE.
--- NOTE | 2018-01-27 14:49 | NUR ---
ANAYELI THE DIABETC EDUCATOR IS HERE NOW TO VISIT WITH THE PATIENT AND FAMILY ABOUT THE PATIENT'S NEW DIABETIC DX.
--- NOTE | 2018-01-27 17:40 | NUR ---
PATIENT HAS HAD A A PRETTY GOD DAY. UP WITH PT IN HIS BRACE AND USING HIS WALKER, NON-WEIGHT BEARING ON LEFT LEG. VS STABLE ALL DAY, PATIENT HAS EATEN WELL AND HIS MENTATION CONTINUES TO IMPROVE. HE HAS HAD A LOT OF COMPANY AND ALONSO USED THE COMMODE MULTIPLE TIMES WITH LARGE BM'S EAH TIME. D/C'ING IV FLUIDS PER DR. JEAN'S ORDERS. NS HAS BE OFF AND ANTIBIOTIC FINISHING UP NOW. IV REDRESSED FOR COMFORT.
--- NOTE | 2018-01-27 19:00 | NUR ---
IN ROOM FOR REPORT, PT IS AWAKE AND PT AND ANSWERING QUESTIONS APPROPRIATELY. CALL LIGHT IS WITHIN REACH AND BED ALARM ON. PT DENIES NEEDS AT THIS TIME.
--- NOTE | 2018-01-27 20:45 | NUR ---
ASSESSMENT COMPLETE, PT IS COOPERATIVE AND ORIENTED. THERE IS A VISITOR IN THE ROOM. PT DENIES PAIN OR NEEDS AT THIS TIME.
--- NOTE | 2018-01-27 21:15 | NUR ---
ASSISTED PT TO THE BSC. USED WALKER, AND CUEING. PT REMAINED NWB LEFT LEG. HAD LIQUID STOOL, ASSISTED BACK TO BED.
--- NOTE | 2018-01-27 22:36 | NUR ---
PT IS AWAKE IN BED, DENIES NEEDS AT THIS TIME. CALL LIGHT IS WITHIN REACH.
--- NOTE | 2018-01-27 23:34 | NUR ---
PT IS RESTING WITH EYES CLOSED, CALL LIGHT IS WITHIN REACH AND BEDALARM IS ON.
--- NOTE | 2018-01-28 01:20 | NUR ---
PT'S BED ALARM SOUNDED HE WAS REACHING FOR WATER. PT IS AWAKE IN BED WATCHING TV. HE HAS FRESH WATER AT THE BEDSIDE AND DENIES FURTHER NEEDS. CALL LIGHT IS WITHIN REACH.
--- NOTE | 2018-01-28 03:54 | NUR ---
PT IS RESTING WITH EYES CLOSED, RESPIRATIONS EVEN AND NONLABORED. CALL LIGHT IS WITHIN REACH AND BED ALARM IS ON.
--- NOTE | 2018-01-28 06:49 | NUR ---
PT IS AWAKE IN BED, DENIES NEEDS AT THIS TIME. CALL LIGHT IS WITHIN REACH AND BED ALARM IS ON.
--- NOTE | 2018-01-28 08:42 | NUR ---
PATIENT IN BED WATCHING TV AND EATING BREAKFAST. PATIENT SEEMS VERY HAPPY. CALL LIGHT WITHIN REACH. NO OTHER NEEDS AT THIS TIME.
[2018-01-28] MEDS ORDERED: LACTULOSE20 GM/30 M PO (10:04)
[2018-01-28] MEDS ORDERED: SEROQUEL100 MG PO (10:04)
--- NOTE | 2018-01-29 11:28 | NUR ---
APOKE WITH RUY FROM [facility], SHE STATED THEY RECIEVED THE CHART NOTES AND ORDERS. ALSO RECIEVED FAX CONFIRMATION OF MATERIAL SENT.
== END 2018-01-28 12:35 | disposition home or self-care (01) | DRG 433 ==
LOC: ED 19:13 → MS 23:15
PROVIDERS: ADMIT Internal Medicine
DX: K70.40 Alcoholic hepatic failure without coma (principal); E72.4 Disorders of ornithine metabolism; E86.0 Dehydration; R73.9 Hyperglycemia, unspecified; T38.7X5A Adverse effect of androgens and anabolic congeners, initial encounter; D72.829 Elevated white blood cell count, unspecified; K70.30 Alcoholic cirrhosis of liver without ascites; F10.21 Alcohol dependence, in remission; D69.6 Thrombocytopenia, unspecified; I10 Essential (primary) hypertension; F41.9 Anxiety disorder, unspecified; F32.9 Major depressive disorder, single episode, unspecified; Z87.891 Personal history of nicotine dependence; S82.142D Displaced bicondylar fracture of left tibia, subsequent encounter for closed fracture with routine healing; X58.XXXD Exposure to other specified factors, subsequent encounter
CPT/HCPCS: 36415; 71046; 80053; 81001; 82140; 83036; 83735; 85007; 85025; 85610; 85730; 94760; 96374; 97163; 99285; G0480; J2060; J2543; J3475; J7030

== ENCOUNTER 2018-02-21 01:37 | Observation (INO) | payer OTHER ==
[~2018-02-21] VITALS: Ht 182.9 cm; Wt 121.1 kg
[2018-02-21] MEDS ORDERED: LASIX40 MG PO (02:00)
--- NOTE | 2018-02-21 04:10 | NUR ---
PATIENT ARRIVED TO THE FLOOR FROM ED ON A STRETCHER. 4 PERSON ASSIST TO MOVE TO HOSPITAL BED. PATIENT UNABLE TO FOLLOW COMMANDS. HIS SITER IS WITH HIM TO ANSWER QUESTIONS. PATIENT SAYS AN OCCATIONAL WORD, BUT DOES NOT ANSWER QUESTIONS OR COMMUNICATE. HE IS ALERT AND GRUNTING/MOANING CONSTANTLY. HE APPEARS AGITATED AND POSSIBLE MILD-MODERATE PAIN. PATIENT IS JAUNDICED. GENERALIZED EDEMA; 3+ IN ARMS, 4+ IN LEGS & FEET. SKIN HAS SEVERAL SCABS SCATTERED. WEEPING SKIN ON RIGHT TARANGO IS COVERED WITH GAUZE AND ROSA BANDAGE FROM HOME HEALTH YESTERDAY. REMOVED BANDAGE; SMALL AMOUNT OF YELLOW DRAINAGE NOTED. SKIN IS INTACT. LEFT LEG HAS HX OF FRACTURE THAT WAS NOT FIXED; IT WAS IN A BACE WHICH WAS REMOVED. L LEG IS SWOLLOW SLIGHTLY MORE THEN RIGHT AND APPEARS MORE RED IN COLOR. SMALL ABCESS NOTED ON LEFT SHOULDER. IV BOLUS INFUSING. ATTEMPTS FOR NEW IV SITE WERE UNSUCCESSFUL. EMS IV SITE APPEARS WNL. PATIENT'S SISTER REPORTS PATIENT HAS BEEN PROVIDING MOST OF HIS OWN CARE AT HOME WITH ASSISTANCE OF HIS ELDERLY MOTHER. IN THE LAST SEVERAL DAYS THE FAMILY ATTEMPTED TO BRING PATIENT INTO THE HOSPITAL WHICH HE REFUSED. HE HAS NOT BEEN EATING OR DRINKING MUCH. FAMILY DENIES ANY ALCOHOL OR DRUG ABUSE SINCE ADMISSION IN DEC 2017. PATIENT HAS BEEN SEEN BY HOME [facility] BUT HAS NOT FOLLOWED UP WITH ORTHO ABOUT HIS LEFT LEG. HAS BRACE BUT DOES NOT WEAR IT CONSISTENTLY.
--- NOTE | 2018-02-21 05:10 | NUR ---
PATIENT UNABLE TO VOID. WAS INCONTINENT OF SMALL AMOUNT OF URINE. PHILLIPS PLACED WITH ASSISTANCE OF 3 RN & HAND CLOTH FOLDER. PATIENT CALLED OUT WITH PHILLIPS INSERTION BUT WAS NOT COMBATIVE. SETTLED DOWN AFTER PLACEMENT WITHIN 5MIN. UA SET TO LAB. PATIENT RESTING IN BED, APPEARS COMFORTABLE. WARM BLANKET PROVIDED. BED ALARM ON.
--- NOTE | 2018-02-21 07:31 | NUR ---
BEDSIDE SHIFT REPORT RECEIVED FROM LAW MORRISON. WHITE BOARD UPDATED. PATIENT AWAKE WITH EYES OPEN, MAKING GRUNTING NOISES. UNABLE TO COMMUNICATE VERBALLY WITH STAFF. SEVERE PITTING EDEMA IN LOWER EXTREMITIES. EDEMA IN UPPER EXTREMITIES WELL. CHUCKS UNDERNEATH PATIENT AND ATTENDS IN PLACE. PLAN TO GIVE LACTULOSE Q2H TODAY. PHILLIPS IN PLACE. NS INFUSING AT 125ML/HR. TELE 9 SHOWES HR 100 ON MONITOR AT NURSES STATION. BED ALARM ON.
--- NOTE | 2018-02-21 07:38 | NUR ---
MED REC COMPLETE
--- NOTE | 2018-02-21 07:55 | NUR ---
pt verbalized his name is "Paul." He is at "[email or web address]". He reports being cold. Able to follow commands, but weak upper extremities. pitting edema throughout body. tremulous. jaundice skin. grunting with every exhale. denies drinking alcohol at home. "its been since maury been at [facility]" that he has not had alcohol intake.
--- NOTE | 2018-02-21 10:23 | NUR ---
PT HAD LARGE BM ON BEDPAN AT 1000. LIQUID STOOL. PT ASSISTED WITH TURNS. 3PA TO CLEAN PATIENT AND REPLACE CHUCKS AND DRAW SHEET UNDER PATIENT. REPOSITIONED TO LEFT SIDE FOR COMFORT AND RISK OF SKIN BREAKDOWN. PHILLIPS CATHETER CARE PROVIDED WELL.
--- NOTE | 2018-02-21 13:26 | NUR ---
PLACED BEDPAN UNDER PATIENT. EATING CLEAR LIQUID TRAY INDEPENDENTLY. TREMORS STILL PRESENT.
--- NOTE | 2018-02-21 14:05 | NUR ---
CHUCKS AND DRAW SHEET CHANGED D/T LIQUID BM. UNABLE TO COLLECT ALL BM IN BEDPAN. MOTHER VISITING PATIENT NOW. PATIENT ABLE TO CARRY CONVERSATION WITH STAFF. JAUNDICE APPARENT WITH BRIGHT LIGHTS ON.
--- NOTE | 2018-02-21 14:46 | NUR ---
PT IS SITTING UP IN BED RESTING SAFELY WITH CALL LIGHT IN REACH VISITING WITH HIS MOTHER. PT DID NOT NEED ANYTHING AT THE MOMENT, BUT THE PT'S MOM ASKED ABOUT HIS RESULTS FROM HIS CHEST X-RAY. WILL ASK NURSE
--- NOTE | 2018-02-21 15:24 | NUR ---
HELP DESK ASSISTANT REPORTED ELEVATED TEMP OF 99.3. THIS RN INITIATED USE OF INCENTIVE SPIROMETER TO INCREASE LUNG VOLUME. TOOK 7 INHALATIONS WITH GOOD FORM ON IS. PATIENT TEMP 98.8 ORALLY.
--- NOTE | 2018-02-21 17:40 | NUR ---
TREMULOUSNESS. SEVERE 4+ EDEMA IN LOWER EXTREMITIES. +3 PITTING EDEMA UPPER EXTREMITIES. PHILLIPS CATHETER. LIQUID BMs X3 TODAY. CHANGING DOSE OF LACTULOSE TO TID. ONE MORE DOSE TONIGHT. BED ALARM. NOT OUT OF BED. BRACE AT BEDSIDE FOR LEFT LEG (HX TIBIAL PLATEAU FX). TURN SIDE TO SIDE OFTEN. NS @ 75. NEEDS NEW IV WHEN ABLE. ORIENTED X4. AMMONIA 112. CONTINUOUS PULSE OX.
--- NOTE | 2018-02-21 17:51 | NUR ---
PT IS SITTING UP IN BED WITH CALL LIGHT IN REACH. PT ASKED FOR MORE ICE WATER
--- NOTE | 2018-02-21 19:20 | NUR ---
SHIFT REPORT RECEIVED. PATIENT RESTING IN BED. HOB ELEVATED. PATIENT IS ORIENTED TO HIMSELF, SURROUNDINGS AND THE YEAR. UNSURE ABOUT THE MONTH. HE APPEARS TO BE IN GOOD SPIRITS. CALL LIGHT IN HAND.
--- NOTE | 2018-02-21 20:15 | NUR ---
PATIENT CALLED TO USE BEDPAN. LARGE LIQUID BM. DARÍO CARE DONE. BEDDING CHANGED. BARRIER CREAM APPLIED. PATIENT ABLE TO ASSIST IN ROLLING.
--- NOTE | 2018-02-21 20:50 | NUR ---
SPOKE TO DR. WALKER, VERIFIED ORDERS TO CHANGE LACTULOSE DOSE TO 30MG TID STARTING TOMORROW. FINAL Q2H LACTULOSE DOSE GIVEN TONIGHT WITH EVENING MEDS. VERIFIED DOSE USING READ BACK METHOD.
--- NOTE | 2018-02-21 20:52 | NUR ---
PATIENT ASSESSMENT COMPLETE. HE IS ALERT AND ORIENTED TO ALL BY THE DATE. HE DOES KNOW THE YEAR AND SEASON. PATIENT IS IN GOOD SPIRIRTS; SOMETIMES SLOW TO RESPOND OR FIND WORDING. CONTINUES TO APPEAR SEVERLY JAUNDICE. LUNG SOUNDS ARE CLEAR IN UPPER LOBES WITH COARSE CRACKLES IN THE BASES. PATIENT HAS OCCATIONAL COUGH, NONPRODUCTIVE. ENCOURAGED IS AND COUGH/DEEP BREATHING. ABD IS MIDERATELY DISTENDED, PATIENT STATES NORMAL. NO NAUSEA BUT FEELS THAT HIS STOMACH IS "ROLLING" AROUND INSIDE. BOWEL SOUNDS ARE HYPERACTIVE. GENERALIZED EDEMA WITH 3+ IN THE ARMS AND 4+ IN LOWER EXTREMITIES AND FEET. ELEVATED LEGS ON PILLOW. BANAGE CHANGED ON CYST THAT WAS DRAINED ON LEFT SHOULDER, OINTMENT APPLIED PER ORDERS. PHILLIPS CONTINUES TO DRAIN QS URINE THAT IS DARK TONNY WITHOUT SEDIMENT. PHILLIPS CARE PROVIDED. DISCUSSED PLAN OF CARE WITH PATIENT AND HE APPEARS TO HAVE A MODERATE UNDERSTANDING. HE VERBILIZED THAT HE DOES NOT LIKE THE LACTULOSE BUT CLAIMS TO BE TAKING HIS HOME DOSE ORDERED. PATIENT ADVANCED TO FULL LIQUID; JELLO AND ICE CREAM PROVIDED. ORAL INTAKE OF FLUIDS HAS BEEN ADEQUATE DURING THE DAY; PATIENT SL AT THIS TIME.
--- NOTE | 2018-02-21 22:58 | NUR ---
PER PT REQUEST I GOT HIM FRESH ICE WATER AND A WARM BLANKET. PT NEEDS NOTHING ELSE AT THIS TIME. BEDSIDE TABLE AND CALL LIGHT WITHIN REACH.
--- NOTE | 2018-02-22 00:17 | NUR ---
PATIENT RESTING IN BED WATCHING TV. SLEEPING OFF AND ON. DENIES NEEDS.
--- NOTE | 2018-02-22 02:00 | NUR ---
VITALS AND I&OS DONE AND CHARTED. BEDSIDE TABLE AND CALL LIGHT WITHIN REACH
--- NOTE | 2018-02-22 02:15 | NUR ---
PATIENT HAD LARGE BM, SEMI LIQUID. PATIENT IS CONTINENT OF STOOL AND ABLE TO ASSIST IN ROLLING ON THE BED. FRESH LINEN WAS PROVIDED. PHILLIPS IS LEAKING AT THE URINARY MEATUS. PATIENT COMPLAINS THIS IS VERY PAINFUL. ASSURED PATIENT WE WOULD BE DISCUSSING POSSIBILITY TO DC PHILLIPS IN AM. PAIENT STATES "GOOD, CAUSE THIS IS TRAUMATIC". HE CONTINUES TO BE ORIENTED AND APPROPRIATE. COMPLIANT WITH CARE. TOLERATING ADEQUATE ORAL FLUIDS. DENIES ANY FURTHER NEEDS AT THIS TIME.
--- NOTE | 2018-02-22 06:30 | NUR ---
PATIENT SLEPT ON AND OFF THROUGHOUT THE SHIFT. ORIENTED X4, FORGETFUL AT TIMES. X3 BM ON THIS SHIFT. LACTULOSE TID STARTING TODAY. ADVANCED DIET TO REGULAR WITH 2G SODIUM RESTRICTION. IV SL, PATIENT DRINKING ADEQUATE FLUIDS. TOLERATED TRANSFER THIS AM TO RECLINER, 2PA W/FWW. TOE TOUCH ON LEFT LEG, PATIENT NEEDS FREQUENT REMINDING. ELEVATING LEGS IN RECLINER. 4+ EDEMA IN LOWER EXTREMITIES, 3+ IN ARMS. URINE OUTPUT QS. PATIENT FLUID POSITIVE FOR LAST 24HR. HE IS WANTING PHILLIPS DC.
--- NOTE | 2018-02-22 06:47 | NUR ---
AGREES TO TAKE PHILLIPS OUT.
--- NOTE | 2018-02-22 06:57 | NUR ---
ALAN MCCAIN'ED. VERY PAINFUL FOR PATIENT. DARÍO CARE PROVIDED. URNAL WITHIN REACH.
--- NOTE | 2018-02-22 07:33 | NUR ---
BEDSIDE REPORT RECEIVED FROM LAW MORRISON. WHITE BOARD UPDATED. PATIENT SITTING UP IN RECLINER. LEGS ELEVATED. PATIENT COMMUNICATES WELL WITH PATIENT. ORIENTED. ABLE TO TRANSFER 1-2PA WITH FWW AND TOE TOUCH WEIGHT BEARING ON LEFT LEG. NEEDS REMINDERS TO TOE TOUCH. PHILLIPS DISCONTINUED AT 0655. DIET ADVANCED TO REGULAR WITH 2GM SODIUM. AMMONIA DECREASED TO 72. LACTULOSE TID TODAY.
--- NOTE | 2018-02-22 09:19 | NUR ---
DR WALKER ASSESSING PATIENT UPON ENTERING ROOM. PATIENT ALERT AND ORIENTED X4. ABSCESS ON LEFT SHOULDER IMPROVING. MUPIROCIN OINTMENT APPLIED WITH BANDAID COVERING. TOOK SCHEDULED MEDS. DUE TO VOID. EDEMA 4+ EXTREMITIES. INFORMED PATIENT TO SPEAK WITH FAMILY ABOUT DISCHARGE PLANS.
--- NOTE | 2018-02-22 10:04 | NUR ---
VS AND I&O'S TAKEN AND DOCUMENTED. PT INFORMED THAT HE NEEDS TO TRY TO PEE. RN IS AWARE OF LOW URINE OUTPUT. INFORMED PT TO CALL IF HE NEEDS ANYTHING. CALL LIGHT IS IN REACH.
--- NOTE | 2018-02-22 10:43 | NUR ---
BLADDER SCANNED PATIENT AFTER VOIDING 100ML. 99ML BLADDER SCAN. WILL CONTINUE TO MONITOR VOIDS.
--- NOTE | 2018-02-22 13:14 | NUR ---
1PA TO BSC WITH FWW. NO BM. PATIENT BACK TO BED NOW. LINENS CHANGED. NEW CHUCKS PLACED. LASIX GIVEN. PATIENT WATCHING TELEVISION. URINE OUTPUT HAS BEEN QS. 150ML/VOID. TOTAL OF 400ML SINCE 1000.
--- NOTE | 2018-02-22 13:19 | NUR ---
PATIENT WAS IN BED, I DID VS, AND TOOK HIS TRAY OUT, HE NEEDED NO OTHER ASSISTANCE AT THE TIME.
--- NOTE | 2018-02-22 14:52 | NUR ---
pt had incontinent void in bed. unable to use urinal quick enough. 1PA to recliner. legs elevated with pillows and recliner foot. pillows in chair for comfort. call light within reach. pt watching television. gown changed. new chucks on bed.
--- NOTE | 2018-02-22 15:46 | NUR ---
pt on bsc. 1pa with fww. call [facility] within reach. patient transferring well with FWW.
--- NOTE | 2018-02-22 18:19 | NUR ---
PATIENT HAD BM ON BSC, BUT MISSED BUCKET. BM ON FLOOR CLEANED AND CALLED [facility] SERVICES TO SANITIZE FLOOR. PATIENT IN RECLINER NOW. ATE 60% OF DINNER.
--- NOTE | 2018-02-22 18:22 | NUR ---
1PA FWW TO BSC OR RECLINER. BMX2 TODAY. LACTULOSE TID. EDEMA 4+ EXTREMITIES. ELEVATED IN RECLINER OR BED TODAY. APPETITE GOOD. REGULAR 2GM SODIUM DIET. URINATING INTO URINAL TODAY. TONNY URINE. LEFT SHOULDER ABSCESS COVERED WITH BACTROBAN OINTMENT AND BANDAID. LAC S/L. AMMONIA LEVEL 72 TODAY. ORIENTED X4. PLAN TO DISCHARGE HOME TOMORROW WITH MOTHER.
--- NOTE | 2018-02-22 19:25 | NUR ---
SHIFT REPORT RECEIVED. PATIENT RESTING IN RECLINER. STATES HE IS TIRED AND WOULD LIKE TO GO TO BED SOON. RN ASSURED HIM THAT WE COULD DO THAT VERY SOON.
--- NOTE | 2018-02-22 20:00 | NUR ---
PATIENT UP TO THE BSC AND THEN INTO BED. TOLERATED WELL. SBA W/FWW. ELEVATED LEGS ON PILLOWS. PATIENT REPORTS FEELING COMFORTABLE. CALL LIGHT AND BEDSIDE TABLE WITHIN REACH.
--- NOTE | 2018-02-22 21:07 | NUR ---
VITALS AND I&OS DONE AND CHARTED.WARM BLANKET GIVEN. BEDSIDE TABLE AND CALL LIGHT WITHIN REACH. PT NEEDS NOTHING ELSE AT THIS TIME.
--- NOTE | 2018-02-22 22:00 | NUR ---
EVENING MEDS GIVEN PER ORDER. PATIENT WAS NOT WANTING TO TAKE HIS LACTULOSE, AFTER SOME EDUCATION AND ENCOURAGEMENT HE AGREED. HE IS AAOX4. LUNG SOUNDS ARE COARSE IN THE BASES. ENCOURAGED COUGH AND DEEP BREATHING. ABD IS MILDLY DISTENDED, BOWEL SOUNDS ACTIVE. APPETITE ADEQUATE. EDEMA IN ARMS HAS IMPROVED; 2+ EDEMA. LOWER EXTREMITIES CONTINUE TO HAVE 3-4+ PITTING EDEMA. PATIENT STATES HIS LEGS FEEL LESS THIGHT AND THEY APPEARS SLIGHTLY LESS SWOLLEN THAN PREVIOUS. CMS INTACT. WOUND CARE PERFORMED ON ABCESS DRAINED ON LEFT SHOULDER, WNL. PATIENT HAS JAUNDICE WHICH ALSO APPEARS SLIGHTLY IMPROVED. HE IS RESTING IN BED WATCHING TV. DENIES ANY NEEDS AT THIS TIME.
--- NOTE | 2018-02-23 00:15 | NUR ---
PATIENT USED THE URNAL IN THE BED WITHOUT ASSISTANCE. RN EMPTIED THE URNAL. PATIENT REPORTS HIS STOMACH IS "ROLLING" AND HE WOULD LIKE TO SIT ON A REGULAR TOILET VERSE THE BSC. PATIENT AMBULATED WITH SBA TO THE BATHROOM WITHOUT DIFFICULTY USING FWW. PATIENT HAD SMALL LOOSE STOOL. RETURNED TO BED. PROVIDED SOME ICE CREAM PER REQUEST. NO OTHER NEEDS AT THIS TIME.
--- NOTE | 2018-02-23 01:40 | NUR ---
PER PT REQUEST I WENT IN AND LOWERED THE HEAD OF HIS BED. ALSO GAVE HIM A CUP OF ICE. BEDSIDE TABLE AND CALL LIGHT WITHIN REACH. HE NEEDS NOTHING ELSE AT THIS TIME.
--- NOTE | 2018-02-23 05:55 | NUR ---
HELPED HIM TO THE BATHROOM AND BACK TO BED WITH FWW. VITALS AND I&OS DONE AND CHARTED. FRESH WATER AND ICE GIVEN. BEDSIDE TABLE AND CALL LIGHT WITHIN REACH. PT NEEDS NOTHING ELSE AT THIS TIME.
--- NOTE | 2018-02-23 06:28 | NUR ---
PATIENT SLEPT OFF AND ON THROUGHOUT THE NIGHT. HE IS AAOX4. MINIMAL PAIN IN LOWER EXTREMITIES. SBA FOR AMBULATION WITH FWW, ENCOURAGE TOE-TOUCH ON LEFT LEG. PATIENT ADMITS HE HAS BEEN NONCOMPLIANT WITH THAT AND HAS BEEN SINCE THE FRACTURE OCCURED IN DEC. USING URNAL IN BED, UP TO BATHROOM FOR BM. EDEMA ON LOWER EXTREMITIES +3; ELEVATED WHILE IN BED. WOUND CARE ON LEFT SHOULDER PER ORDERS; WNL. REGULAR DIET WITH 2G SODIUM RESTRICTION.
--- NOTE | 2018-02-23 08:32 | NUR ---
TISSUE TECHNOLOGIST REPORTED TO ASSIST PATIENT TO BATHROOM. PATIENT HAD BLOOD IN URINE. TISSUE TECHNOLOGIST REPORTED TO RN.
--- NOTE | 2018-02-23 09:37 | NUR ---
PATIENT SITTING UP IN BED. HANDS AND FACE WASHED. ORAL CARE DONE. PATIENT REFUSED SHOWER AT THIS TIME. RN IN ROOM TO PASS MEDS. FRESH ICE WATER GIVEN. WARM BLANKET GIVEN.
--- NOTE | 2018-02-23 09:47 | NUR ---
KATHI ASSESSMENT AND MEDICATION DUE. THIS RN TO ROOM. PT VISITING WITH LACTATION NURSE AND DIETARY. PT ORDERS LUNCH. ASSESSMENT DONE. PT DENIES PAIN AND NAUSEA. MEDICATION GIVEN (SEE MAR). NEW BANDAID AND OINTMENT APPLIED TO LEFT SHOULDER PER ORDER. PT UP TO RESTROOM. CHUX NOTED TO BE WET WITH BM. CHUX CHANGED. NEW GOWN PROVIDED. PT STATES HE WILL USE CALL LIGHT WHEN DONE IN THE RESTROOM.
--- NOTE | 2018-02-23 11:53 | NUR ---
THIS RN CALLED MOTHER AND SISTER TO ADVISE THEM OF PT DISCHARGE. NO ANSWER ON EITHER NUMBER AT THIS TIME.
--- NOTE | 2018-02-23 13:01 | NUR ---
FOCUSED ASSESSMENT AND MEDICATIONS DUE. THIS RN TO BEDSIDE. PT WATCHING TV. DENIES PAIN AND NAUSEA. PT WAITING FOR DISCHARGE AND IS AWARE THAT HIS SISTER WILL BE HERE AT 1400. ASSESSMENT DONE. MEDICAITONS GIVEN. LEGS ELEVATED. PT STATES HE HAS NO REQUESTS OR CONCERNS AT THIS TIME. BED RAILS UP. CALL LIGHT WITHIN REACH.
--- NOTE | 2018-02-23 13:41 | NUR ---
PATIENT SITTING UP IN BED WATCHING TV. PATIENT STATES THAT HE HAS NO PAIN. CALL LIGHT WITHIN REACH. FRESH ICE WATER. NO OTHER NEEDS AT THIS TIME.
--- NOTE | 2018-02-23 14:22 | NUR ---
PT READY FOR DISCHARGE, SISTER HERE. PIV DC'D PER PROTOCOL. DISCHARGE PACKET REVIEWED WITH PT AND SISTER. PT AND SISTER OFFERED THE CHANCE TO GO THROUGH DISCHAGER INFORMATION AND HAND OUTS R/T ILLNESSES, OFFER ACCEPTED. HAND OUTS REVIEWED WITH PT. SISTER STATES "THIS IS VERY HELPFUL, THE BEST WE HAVE EVER UNDERSTOOD." PT AND SISTER VERBALIZE UNDERSTANDING OF DISCHARGE INSTRUCTIONS AND STATE THEIR QUESTIONS HAVE BEEN ANSWERED. PT WHEELED FROM CLINIC WITH PACKET.
== END 2018-02-23 14:25 | disposition home or self-care (01) ==
LOC: ED 01:37 → MS 01:38
PROVIDERS: ADMIT Internal Medicine
DX: K72.90 Hepatic failure, unspecified without coma (principal); E87.1 Hypo-osmolality and hyponatremia; K70.30 Alcoholic cirrhosis of liver without ascites; D61.818 Other pancytopenia; L02.414 Cutaneous abscess of left upper limb; E55.9 Vitamin D deficiency, unspecified; R60.1 Generalized edema; I10 Essential (primary) hypertension; F41.8 Other specified anxiety disorders; D72.829 Elevated white blood cell count, unspecified; Z87.891 Personal history of nicotine dependence; Z79.2 Long term (current) use of antibiotics; Z79.899 Other long term (current) drug therapy
CPT/HCPCS: 51702; 51798; 71045; 80053; 81001; 82140; 83735; 85025; 85610; 96360; 96361; 99285; G0378; J7030

== ENCOUNTER 2018-06-02 12:09 | Emergency (ER) | payer OTHER ==
[~2018-06-02] VITALS: Ht 182.9 cm; Wt 121.1 kg
[~2018-06-02 12:09] MED LIST changes: +LASIX40 MG PO
[2018-06-02] MEDS ORDERED: SPIRONOLACTONE100 MG NG (12:27)
[2018-06-02] MEDS ORDERED: CETIRIZINE HCL10 M1 PO (12:28)
[2018-06-02] MEDS ORDERED: FAMOTIDINE20 MG PO (12:28)
[2018-06-02] MEDS ORDERED: VITAMIN C500 M4 PO (12:29)
[2018-06-02] MEDS ORDERED: VITAMIN B COMP1 EACH PO (12:29)
[2018-06-03] MEDS ORDERED: ONDANSETRON ODT8 MG PO (15:09)
[2018-06-03] MEDS ORDERED: PHENERGAN25 MG PR (15:09)
== END 2018-06-02 13:02 | disposition home or self-care (01) ==
LOC: ED 12:09
DX: K72.90 Hepatic failure, unspecified without coma (principal); I10 Essential (primary) hypertension; Z87.891 Personal history of nicotine dependence; Z79.899 Other long term (current) drug therapy
CPT/HCPCS: 99283

== ENCOUNTER 2018-06-03 14:38 | Emergency (ER) | payer OTHER ==
[~2018-06-03] VITALS: Ht 182.9 cm; Wt 121.1 kg
[~2018-06-03 14:38] MED LIST changes: +CETIRIZINE HCL10 M1 PO; +SPIRONOLACTONE100 MG NG; +VITAMIN B COMP1 EACH PO; +VITAMIN C500 M4 PO
[2018-06-03] MEDS ORDERED: PHENERGAN25 MG PR (15:09)
[2018-06-03] MEDS ORDERED: ONDANSETRON ODT8 MG PO (15:09)
== END 2018-06-03 15:20 | disposition home or self-care (01) ==
LOC: ED 14:38
DX: K72.90 Hepatic failure, unspecified without coma (principal); I10 Essential (primary) hypertension; F17.200 Nicotine dependence, unspecified, uncomplicated; Z79.899 Other long term (current) drug therapy
CPT/HCPCS: 99283

== ENCOUNTER 2018-06-24 14:14 | Inpatient (IN) | payer OTHER ==
[~2018-06-24] VITALS: Ht 182.9 cm; Wt 113.8 kg
[~2018-06-24 14:14] MED LIST changes: +24HOUR ALLERGY10 MG PO; -CETIRIZINE HCL10 M1 PO; +ONDANSETRON ODT8 MG PO; +PHENERGAN25 MG PR; -SPIRONOLACTONE100 MG NG; -VITAMIN B COMP1 EACH PO; -VITAMIN C500 M4 PO
--- NOTE | 2018-06-24 18:36 | NUR ---
PT ADMITTED AT 1720 TODAY FROM [facility] HE IS FORGETFUL/CONFUSED, NEEDS BED ALARM AND CLOSE MONITORING. HE IS INCONT. OF URINE/BOWEL, WILL BECOME RESTLESS WHEN NEED TO USE COMMODE. IS RE-DIRECTABLE, AND FOLLOWS DIRECTIONS WITH MULTIPLE PROMPTES. HE IS STRONG, NEEDS 2 PERSON ASSIST FOR SAFTY
--- NOTE | 2018-06-24 19:00 | NUR ---
BED ALARM SOUNDING, IN PT ROOM WITH 2 RNS TO ASSIST TO BSC. LARGE VOID ON FLOOR, PT HAVING DIFFICULTY FOLLOWING INSTRUCTIONS, REQUIRING FREQUENT REDIRECTING. ATTENDS, GOWN, SOCKS CHANGED AND BACK IN BED, BED ALARM ON. PT COVERED WITH WARM BLANKETS.
--- NOTE | 2018-06-24 19:30 | NUR ---
BEDSIDE REPORT RECEIVED FROM PRINCE PRADO AND PRINCE [place]. PT LYING IN BED, BED ALARM ON. SCDS OFF AT THIS TIME FOR PT SAFETY. IVF INFUSING WNL. CALL LIGHT AND PERSONAL SUPPLIES IN REACH.
--- NOTE | 2018-06-24 20:55 | NUR ---
PT ASSESSMENT COMPLETE, PT ORIENTED TO SELF AND . NOT ABLE TO RESPOND TO OTHER ORIENTATION QUESTIONS. BOWEL TONES ACTIVE X 4, ABD SOFT, PT DENIES NAUSEA, DENIES PAIN. 2+ PITTING EDEMA BLE, TREMULOUS IN ARMS WITH ARM RAISE. PT COMPLIANT WITH SCHEDULED MEDICATION ADMINISTRATION. 2PA TO STAND AND USE URINAL, PT REQUIRING INSTRUCTION WITH FWW, DIFFICULTY FOLLOWING COMMANDS. BACK IN BED, BED ALARM ON. CALL LIGHT WITH PT.
--- NOTE | 2018-06-24 21:53 | NUR ---
BED ALARM SOUNDING, PT OUT OF BED AT DOORWAY WHEN RNS ENTER ROOM. DENIES TOILETING NEEDS, INCONTINENT OF STOOL, LARGE SOFT LOOSE BM. REFUSES TO GET UP TO BSC. ATTENDS, BEDDING, GOWN CHANGED. BED ALARM ON.
--- NOTE | 2018-06-24 22:34 | NUR ---
IN PT ROOM FOR SHCHEDULED LACTULOSE ADMINISTRATION, PT DENIES TOILETING NEEDS. ABLE TO STATE NAME AND . BED ALARM ON. IVF INFUSING WNL. ATTENDS AND CHUX IN PLACE.
--- NOTE | 2018-06-24 23:57 | NUR ---
4 PA CLEANED UP PATIENT HAD BOWEL MOVEMENT IN BED AND REFUSED TO GET UP TO THE COMMODE. CHANGED BED LINEN.
--- NOTE | 2018-06-25 00:15 | NUR ---
IN PT ROOM FOR MATH INTERVENTIONIST. 2PA TO BSC, PT STATES NEEDS TO HAVE BM, UNABLE TO HAVE BM, LARGE VOID OF URINE ON FLOOR AFTER MISSING BSC. ATTENDS, SOCKS CHANGED, 2PA BACK TO BED, IVF INFUSING WNL. BED ALARM ON. WARM BLANKETS PROVIDED.
--- NOTE | 2018-06-25 02:10 | NUR ---
VITALS AND ASSESSMENT COMPLETE AT THIS TIME. PT COMPLIANT W LACTULOSE ADMINISTRATION. DENIES TOILETING NEEDS AT THIS TIME. VITALS STABLE. BOWEL TONES ACTIVE X4, PT DENIES NAUSEA, DENIES PAIN, ABD SOFT. ATTENDS IN PLACE. BED ALARM ON.
--- NOTE | 2018-06-25 03:17 | NUR ---
BED ALARM SOUNDING, PT CLIMBING OUT OF BED OVER SIDE RAIL. 4PA TO BSC, ASSISTING WITH URINAL AND DIRECTING PT. SOFT LIQUID BM AND UNMEASURED VOID IN BSC. ATTENDS CHANGED, ASSISTED BACK TO BED. BED ALARM IN PLACE. IVF INFUSING WNL.
--- NOTE | 2018-06-25 06:08 | NUR ---
PT IMPULSIVE THROUGHOUT SHIFT, BED ALARM IN PLACE. ORIENTED TO PERSON, , PLACE. ENULOSE Q2H ADMINISTERED THIS SHIFT, 3 SOFT/LOOSE BMS NOTED. PT INCONTINENT OF URINE AND STOOL. DIFFICULTY FOLLOWING COMMANDS. 2-4PA WITH FWW TO DIRECT PT TO COMMODE, ASSIST IN CLEANING PT. CLEAR LIQUID DIET. IVF INFUSING THROUGHOUT SHIFT.
--- NOTE | 2018-06-25 07:51 | NUR ---
PATIENT ASSISTED TO THE CHAIR FROM BED. PATIENT DID NOT FOLLOW COMMAND. PATIENT STATED NAME, BIRTHDAY, AND THAT HE WAS IN THE HOSPITAL. UNABLE TO DO FOLLOW DIRECTION WITH MOVEMENT. NEEDING A LOT OF ASSIST TO SIT IN CHAIR. CHAIR ALARM SET. MEDICATION GIVEN.
--- NOTE | 2018-06-25 08:06 | NUR ---
THIS SHOP REPAIRER AND SILVIO CENTENO AND RN ASSISTED PATIENT TO STAND AND PIVOT TO THE BEDSIDE COMMODE AND BACK TO THE BEDSIDE RECLINER. PATIENT UNABLE TO FOLLOW DIRECTIONS CLEARLY AND STRUGGLES WITH SITTING AND STANDING PROCESSES. PATIENT MOANS FREQUENTLY. CHAIR ALARM ON. PATIENT SITTING UP EATING BREAKFAST. RN IN ROOM. NO OTHER NEEDS AT THIS TIME.
--- NOTE | 2018-06-25 08:30 | NUR ---
patient yelling to go to the br. patient assisted with a 2 person assist. patient does not follow commands. needing a lot of assistance with steps to stand and sit. getting frustrated with staff at times. patient has had large bm.
--- NOTE | 2018-06-25 09:04 | NUR ---
PATIENT ASSISTED WTIH URINAL. PATIENT NOT CALLING. ATTEMPTING TO GET OUT OF BED BY HIMSELF. BED ALARM WENT OFF.
--- NOTE | 2018-06-25 09:24 | NUR ---
patient sleeping at this time on his side. rr even and unlabored. bed alarm on
--- NOTE | 2018-06-25 10:01 | NUR ---
pt is sresting in bed with call light in reach and bed alarm on. pt did not need anything at the moment
--- NOTE | 2018-06-25 10:49 | NUR ---
PATIENT ATTEMPTED TO GET OUT OF BED. BED ALARM ON. ASSISTED TO THE BEDSIDE COMMODE WITH 2 PERSON ASSIST. PATIENT IS ORIENTED TO SELF, DATE, AND PLACE. UNABLE TO STATE MONTH . WAS BETTER ABLE TO FOLLOW COMMANDS WHILE MOVING TO BSC.
--- NOTE | 2018-06-25 11:53 | NUR ---
ROUNDED WITH DR. JEAN IN ROOM. NEW ORDERS ADDED. ORDERED REGULAR DIET.
--- NOTE | 2018-06-25 13:45 | NUR ---
PATIENT GOT OUT OF BED TO STAND UP. TWO PERSON ASSIST TO BSC. PATIENT VOIDED AND HAD LOOSE STOOL IN BSC. ASSISTED BACK TO BED. FOLLOWING COMMANDS BETTER AT THIS TIME. BED ALARM PLACE ON PATIENT.
--- NOTE | 2018-06-25 14:29 | NUR ---
pt is resting in bed safely with call light in reach and bed alarmon. pt will be getting a shower here shortly
--- NOTE | 2018-06-25 15:02 | NUR ---
JARVIS ASSISTED IN THE SHOWER WITH A TWO PERSON ASSIST. PATIENT YELLED AT TIMES, BUT WAS ABLE TO MILDLY PARTICIPATE. ASSISTED BACK TO BED. BED ALARM IN PLACE.
--- NOTE | 2018-06-25 15:07 | NUR ---
THIS PROFESSOR OF THEATER AND RN NAVJOT ASSISTED PATIENT UP ONTO BEDSIDE COMMODE, AND THEN INTO SHOWER CHAIR. PATIENT SHOWERED WITH TWO PERSON ASSIST. PATIENT ABLE TO PERFORM PERICARE. PATIENT TRASNFERRED BACK INTO BED, AND IS RESTING AT THIS TIME. CALL LIGHT IN REACH. BED ALARM ON. NO OTHER NEEDS AT THIS TIME.
--- NOTE | 2018-06-25 15:11 | NUR ---
THIS INNOVATION MANAGER HAD DIFFICULTY GETTING AN ACCURATE BLADDER SCAN VOLUME. RN NOTIFIED.
[2018-06-25] MEDS ORDERED: LACTULOSE10 GM/15 M PO (15:37)
[2018-06-25] MEDS ORDERED: SEROQUEL100 MG PO (15:38)
[2018-06-25] MEDS ORDERED: SPIRONOLACTONE100 MG PO (15:39)
[2018-06-25] MEDS ORDERED: VITAMIN B COMP1 EACH PO (15:39)
[2018-06-25] MEDS ORDERED: VITAMIN C500 M4 PO (15:39)
[2018-06-25] MEDS ORDERED: PROTONIX40 MG PO (15:40)
--- NOTE | 2018-06-25 17:04 | NUR ---
patient oriented to self, date, and location. unable to state month or year. patient needs bed alarm in place at all times. forgets to call. 2 person assist to bsc or use urinal. patient voiding dark brenda color urine. patient has had several loose stools. following commands better this evening. rocephen daily for uti. patient reports burning whle voiding. no orders due to contraindications for dx. patient has fluid running wnl. advanced to regular diet.
--- NOTE | 2018-06-25 19:40 | NUR ---
RECEIVED REPORT FROM MARK MORRISON. THIS RN IS TAKING OVER CARES. PT IN BED AT THIS TIME. ORIENTED TO PERSON, PLACE, AND SITUATION. DISORIENTED TO DATE AND TIME. REORIENTS WELL. FOLLOWS COMMANDS. BED ALARM IN PLACE. IVF INFUSING AT CORRECT RATE. CALL LIGHT IN REACH. REPORTS NO OTHER NEEDS AT THIS TIME.
--- NOTE | 2018-06-25 21:58 | NUR ---
CHARGE NURSE ROUNDING NOTE: LESS IMPULSIVE, EASILY REDIRECTED, IVF INFUSING, BED ALARM ON, PT WATCHING TV, CALL LIGHT AND FLUIDS WITHIN EASY REACH. PT HIGH RISK FALL PROTOCOL,
--- NOTE | 2018-06-25 22:10 | NUR ---
ASSISTED PT SBA TO BSC. PT TOLERATED WELL. STEADY ON FEET. ABLE TO FOLLOW COMMANDS. VOIDED 200ML. BACK TO BED. CALL LIGHT IN REACH. BED ALARM IN PLACE. SCD'S ON. VISIBLE FROM NURSING STATION. REFRESHED WATER. PROVIDED WARM BLANKET. REPRTS NO OTHER NEEEDS AT THIS TIME.
--- NOTE | 2018-06-26 00:12 | NUR ---
SBA WITH FWW TO BSC. TOLERATED WELL. 1 LARGE LIQUID BM. BACK TO BED. SCD'S IN PLACE. FLUIDS INFUSING AT CORRECT RATE. PT ABLE TO USE CALL LIGHT WHEN FINISHED ON BSC. CALL LIGHT IN REACH. REFRESHED WATER. REPORTS NO OTHER NEEDS AT THIS TIME.
--- NOTE | 2018-06-26 02:30 | NUR ---
SBA TO BSC. TOLERATED WELL. VOIDED 50ML. BACK TO BED. REPORTS NO PAIN AT THIS TIME. SCD'S IN PLACE, BED ALARM ON, CALL LIGTH IN REACH. REFRESHED WATER. REPORTS NO OTHER NEEDS. WATCHING TV AT THIS TIME.
--- NOTE | 2018-06-26 03:55 | NUR ---
PT AWAKE IN BED WATCHING TV. CALL LIGHT IN REACH. PT VERBALIZED AND DEMONSTRATED HOW TO USE CALL LIGHT. SCD'S IN PLACE. LR @ 100ML/HR. REPORTS NO OTHER NEEDS. BED ALARM IN PLACE.
--- NOTE | 2018-06-26 05:49 | NUR ---
PT WAS AWAKE MOST OF THE NIGHT. LR @ 100 IN LEFT WRIST WNL. PT ORIENTED TO SITUATION AND PLACE. REORIENTS WELL TO TIME AND DATE. SBA WITH FWW TO BSC. STEADY ON FEET. BED ALARM IN PLACE BUT THE PT DOD NOT TRY TO GET UP WITHOUT ASSISTANTS AND USED CALL LIGHT APPROPRIATLY. FINE CRACKLSE IN BASES. IS ENCOURAGED. SCD'S IN PLACE. 1 LG BM THIS SHIFT. VOIDING WITH URINAL. SKIN JAUNDICED, 1+ EDEMA IN BLE AND GENERAL THROUGHOUT BODY.
--- NOTE | 2018-06-26 05:59 | NUR ---
AWAKE, WATCHING TV, COOPERATIVE, APPROPRIATE, BED ALARM ON. COOPERATIVE WITH BLOOD DRAWS AND VITALS. NO C/O PAIN
--- NOTE | 2018-06-26 07:35 | NUR ---
THIS SALES TEAM MANAGER ASSISTED PATIENT TO WASH HANDS AND FACE WITH WARM WASH CLOTH, AND PERFORM ORAL CARE. PATIENT COMPLAINS OF LIPS BEING DRY AND CHAPPED, THIS SALES TEAM MANAGER PROVIDED CHAPSTICK FOR PATIENT. THIS SALES TEAM MANAGER ASSISTED PATIENT TO TRANSFER TO BEDSIDE RECLINER WITH STANDBY ASSISTANCE FROM SILVIO CENTENO. PATIENT IS STEADY ON HIS FEET AND TRANSFERS WELL. PATIENT CALL LIGHT IN REACH. PATIENT EATING BREAKFAST AT THIS TIME. CHAIR ALARM ON. NO OTHER NEEDS AT THIS TIME.
--- NOTE | 2018-06-26 07:47 | NUR ---
PATIENT SITTING UP IN CHAIR. ABLE TO MOVE TO CHAIR WITH A ONE ASSIST. MOVING MUCH BETTER THAN YESTERDAY. PATIENT ORIENTED TO SELF, LOCATION, SITUATION, PRESIDENT, AND MONTH. UNABLE TO STATE SAY OF THE WEEK. NO PAIN. ASSESSMENT COMPLETE. PATIENT TOOK MEDICATION WELL. SITTING UP EATING BREAKFAST.
--- NOTE | 2018-06-26 09:30 | NUR ---
PATIENT WORKED WITH PT. AMBULATED IN AYOUB WITH STBY ASSIST. TOLERATED WELL. DID STAIRS IN TREATMENT ROOM. NO ISSUES. PATIENT CALLED TO ASSIST TO BR. CALLED WITH CALL LIGHT WHEN DONE. ASSISTED BACK TO CHAIR.
--- NOTE | 2018-06-26 10:39 | NUR ---
PATIENT RESTING IN CHAIR. FACILITY MAINTENANCE TECHNICIAN MELISSA CALLED FOR UPDATE ON PATIENT. INFORMED THAT PATIENT WAS ATTEMPTING TO CHANGE PCP'S TO DR. MOORE. PAPER WORK HAS BEEN SENT BUT DR. MOORE HAS NOT STATED THAT HE WILL EXCEPT PATIENT. CALLED TO CONFIRM WITH CLINIC. THEY ARE STILL AWAITING FAXES TO BE REVIEWED BEFORE PATEINT CAN BE SEEN. 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
--- NOTE | 2018-06-26 12:34 | NUR ---
rounded with dr. villegas. plan to notify mother and see if patient and mother are ready for patient to be discharged.
--- NOTE | 2018-06-26 12:44 | NUR ---
PATIENT RESTING IN BEDSIDE RECLINER, CALL LIGHT IN REACH. NO OTHER NEEDS AT THIS TIME.
--- NOTE | 2018-06-26 13:58 | NUR ---
PATIENT RESTING IN BEDSIDE RECLINER. PATIENT HAD SMALL VOID IN TOILET BUT MISSED THE HAT. CALL LIGHT IN REACH. CHAIR ALARM ON. NO OTHER NEEDS AT THIS TIME.
--- NOTE | 2018-06-26 15:53 | NUR ---
Medications reconciled using pharmacy records as patient is poor historian
--- NOTE | 2018-06-26 18:11 | NUR ---
PT FINISHED DINNER. VISITOR IN ROOM. NO OTHER NEEDS AT THIS TIME. CHAIR ALARM REMAINS IN PLACE. CALL LIGHT WITHIN REACH.
--- NOTE | 2018-06-26 18:12 | NUR ---
PATEINT DOING MUCH BETTER TODAY. PLAN TO D/C HOME TOMORROW. PATIENT STBY ASSIST IN ROOM. SL. CONTINUE ENULOSE QID. PATIENT HAS HAD QS DARK TONNY COLOR URINE. SEVERAL BMS TODAY. PATIENT ORIENTED TO SELF, MONTH, LOCATION, AND DAY OF THE WEEK. CHECKING LABS IN AM.
--- NOTE | 2018-06-26 19:28 | NUR ---
REPORT RECEIVED FROM NAVJOT MORRISON. PT UP IN CHAIR AT THIS TIME WITH FRIEND AT BEDSIDE. CALL LIGHT WITHIN REACH. REPORTS NO NEEDS AT THIS TIME.
--- NOTE | 2018-06-26 21:57 | NUR ---
CALL LIGHT ANSWERED. SBA TO BATHROOM. PT STEADY ON FEET WITH MINIMAL ASSISTANCE. INSTRUCTED TO USE CALL LIGHT WHEN DONE.
--- NOTE | 2018-06-27 00:45 | NUR ---
PT AWAKE IN BE WATCHING TV. REPORTS NO NEEDS AND DENIES ANY PAIN. CALL LIGHT IN REACH.
--- NOTE | 2018-06-27 02:10 | NUR ---
PT AWAKE IN BED. REPORTS NO NEEDS. CALL LIGHT IN REACH. BED ALARM IN PLACE.
--- NOTE | 2018-06-27 02:41 | NUR ---
PATIENT AMBULATED TO THE BATHROOM WITH 1PSBA AND NO WALKER TO VOID 300MLS DARK URINE IN THE TOILET AND HAVE A SMALL LIQUID STOOL. PATIENT THEN WASHED HMSELF UP AND WALKED BACK TO AND GOT INTO BED ON HIS OWN. PATIENT IS DOING WELL AND C/O NO PAIN. CALL LIGHT IS IN REACH.
--- NOTE | 2018-06-27 03:20 | NUR ---
SBA TO BATHROOM. STEADY ON FEET. PT A/O AT THIS TIME. BACK TO BED. SAT WITH PT AND TALKED. PT EMOTIONAL WHEN BACK TO BED. PT WAS CRYING WHILE TALKING ABOUT ANTICIPATED FATE OF SELF AND DISEASE PROCESS. THIS NURSE SAT AND LISTENED TO PT CONCERNS, FEARS AND PLANS FOR WHEN HE IS DC'D. ENCOURAGED FAMILY TIME AND COMMUNICATION OF FEELINGS. REASSURED THESE FEELINGS ARE NORMAL.
--- NOTE | 2018-06-27 05:09 | NUR ---
PT AWAKE ALL NIGHT. DEPRESSED ABOUT DISEASE. A/O X4. STEADY ON FEET. EDEMA BLE. ENULOSE QID. 3 BMS THIS SHIFT. PLAN TO DC HOME TODAY. FAMILY FRIEND TO GIVE RIDE.
[2018-06-27] MEDS ORDERED: KEFLEX500 MG PO (08:36)
--- NOTE | 2018-06-27 09:16 | NUR ---
PATIENT ATE 100% OF BREAKFAST. HOSPITALIST INTO ROOM TO SPEAK WITH PATIENT ABOUT DISCHARGE PLAN AND POC. PLAN TO DISCHARGE TODAY. FULL BODY ASSESMENT DONE. ADDRESSED QUESTIONS AND CONCERNS. CALL LIGHT WITHIN REACH.
== END 2018-06-27 12:05 | disposition home or self-care (01) | DRG 442 ==
LOC: ED 14:14 → MS 16:46
PROVIDERS: ADMIT Internal Medicine
DX: K72.00 Acute and subacute hepatic failure without coma (principal); N30.00 Acute cystitis without hematuria; N17.9 Acute kidney failure, unspecified; K72.10 Chronic hepatic failure without coma; B96.1 Klebsiella pneumoniae [K. pneumoniae] as the cause of diseases classified elsewhere; E86.0 Dehydration; I10 Essential (primary) hypertension; F41.8 Other specified anxiety disorders; K70.30 Alcoholic cirrhosis of liver without ascites; Z86.19 Personal history of other infectious and parasitic diseases; Z79.2 Long term (current) use of antibiotics; Z79.899 Other long term (current) drug therapy
CPT/HCPCS: 36415; 71046; 80053; 81001; 82140; 83735; 85025; 87077; 87088; 87186; 96361; 96374; 97161; 99285; J0696; J3475; J7040; J7120

== ENCOUNTER 2018-07-15 22:03 | Emergency (ER) | payer OTHER ==
[~2018-07-15] VITALS: Ht 182.9 cm; Wt 113.8 kg
[~2018-07-15 22:03] MED LIST changes: +KEFLEX500 MG PO; +LACTULOSE10 GM/15 M PO; +PROTONIX40 MG PO; +VITAMIN B COMP1 EACH PO; +VITAMIN C500 M4 PO
[2018-07-16] MEDS ORDERED: LEVAQUIN500 MG PO (01:22)
== END 2018-07-16 01:54 | disposition home or self-care (01) ==
LOC: ED 22:03
DX: L03.116 Cellulitis of left lower limb (principal); I10 Essential (primary) hypertension; Z79.899 Other long term (current) drug therapy
CPT/HCPCS: 93971; 99284

== ENCOUNTER 2018-12-15 16:21 | Emergency (ER) | payer OTHER ==
[~2018-12-15] VITALS: Ht 182.9 cm; Wt 113.8 kg
[~2018-12-15 16:21] MED LIST changes: +AUGMENTIN 875-1 EACH PO; +BUPROPION HCL75 MG PO; +KLOR-CON M1010 MEQ PO; -LASIX40 MG PO; +LASIX80 MG PO; +LEVAQUIN500 MG PO
--- OUTSIDE RECORDS SUMMARY | 2018-12-15 16:24 | XMS ---
PreManage Notification: NATASHA GUSMAN Security Fur Dyer Events No recent Security Events currently on file CRITERIA MET - Group Notification - 6 ED Visits in 6 Months - [facility] - 2 Visits in 30 Days CARE PROVIDERS ESTELA MOORE 06/30/2018-Current PHONE: Unknown ASHWINI ROE Family Medicine: Sports Medicine 06/04/2018-Current PHONE: Unknown [facility] Case or Line Cleaner Current HEALTH AND HOSPICE PHONE: [phone] Jake Gerber MD PHONE: Unknown ASHWINI ROE DO Primary [facility] Current PHONE: [phone] Jonathan has no Care Guidelines for this patient. Care History Medical/Surgical 06/04/2018 [facility] - Patient is currently being case managed by DONNA MORRISONtube and manifold builder Vane. Please contact Vane if patient is seen in the ED. [phone]. E.D. VISIT COUNT (12 MO.) 1 [facility] [place] [facility] TOTAL 13 NOTE: Visits indicate total known visits. ED/UCC VISIT TRACKING (12 MO.) 12/15/2018 16:22 [facility] TYPE: Emergency COMPLAINT: - NAUSEA,VOMITING 11/25/2018 09:35 [facility] TYPE: Emergency DIAGNOSES: [id number]. [id number]. Hepatic failure, unspecified without coma 11/01/2018 07:58 [facility] [place] TYPE: Emergency COMPLAINT: - L LEG PAIN 10/19/2018 12:46 [facility] TYPE: Emergency COMPLAINT: - FALL DIAGNOSES: - Laceration without foreign body, left lower leg, initial encounter - Fall (on) (from) unspecified stairs and steps, initial encounter - Pain in left knee - Other nursing home (current) drug therapy - Major depressive disorder, single episode, unspecified - Personal history of nicotine dependence - Essential (primary) hypertension 09/29/2018 09:00 [facility] [place] TYPE: Emergency COMPLAINT: - L WRIST LAC DIAGNOSES: - Other watermelon inspector (current) drug therapy - Exposure to other specified factors, initial encounter - Laceration without foreign body of left wrist, initial encounter - Essential (primary) hypertension - Major depressive disorder, single episode, unspecified 08/10/2018 12:24 [facility] TYPE: Emergency DIAGNOSES: - Dizziness - dizzy/low BP - Alcoholic cirrhosis of liver with ascites - Hypo-osmolality and hyponatremia - Hypotension, unspecified 07/15/2018 22:04 [facility] TYPE: Emergency COMPLAINT: - L LEG PAIN,NON-INJURY DIAGNOSES: - Essential (primary) hypertension - Cellulitis of left lower limb - Other watermelon inspector (current) drug therapy 06/24/2018 14:14 [facility] [place] TYPE: Emergency COMPLAINT: - ALTERED LOC 06/03/2018 14:39 [facility] TYPE: Emergency COMPLAINT: - ABNORMAL LABS DIAGNOSES: - Nicotine dependence, unspecified, uncomplicated - Other watermelon inspector (current) drug therapy - Essential (primary) hypertension - Hepatic failure, unspecified without coma - Vomiting, unspecified 06/02/2018 12:09 [facility] TYPE: Emergency COMPLAINT: - ABNORMAL LABS DIAGNOSES: - Other specified abnormal findings of blood chemistry - Essential (primary) hypertension - Hepatic failure, unspecified without coma - Other watermelon inspector (current) drug therapy - Personal history of nicotine dependence 02/21/2018 01:37 [facility] TYPE: Emergency COMPLAINT: - WEAKNESS 01/25/2018 19:14 [facility] TYPE: Emergency COMPLAINT: - CONFUSION 12/26/2017 13:25 [facility] TYPE: Emergency COMPLAINT: - L KNEE PAIN/INJURY INPATIENT VISIT TRACKING (12 MO.) 11/25/2018 09:35 [facility] TYPE: Internal Medicine DIAGNOSES: 66627. Hepatic failure, unspecified without coma 11/16/2018 19:46 [facility] TYPE: Internal Medicine DIAGNOSES: 57596. End Stage Liver Disease 92469. Hepatic failure, unspecified without coma 11/05/2018 12:19 [facility] TYPE: General Medicine DIAGNOSES: - Other specified personal risk factors, not elsewhere classified - Hepatic failure, unspecified without coma - Generalized edema - Chronic kidney disease, unspecified - Nephrotic syndrome with unspecified morphologic changes - Hypo-osmolality and hyponatremia - Hypomagnesemia - Renal Failure - Acute kidney failure, unspecified - Anemia, unspecified - Other disorders of plasma-protein metabolism, not elsewhere classified 11/01/2018 09:37 [facility] TYPE: Critical Care COMPLAINT: - CELLULITIS DIAGNOSES: - Obesity, unspecified - Displaced bicondylar fracture of left tibia, subsequent encounter for closed fracture with routine healing - Hypomagnesemia - Essential (primary) hypertension - Major depressive disorder, single episode, unspecified - Patient's noncompliance with dietary regimen - Body mass index (BMI) 34.0-34.9, adult - Alcoholic cirrhosis of liver without ascites - Personal history of nicotine dependence - Alcohol dependence, in remission - Cellulitis of left lower limb - Acute kidney failure, unspecified - Alcoholic hepatitis without ascites - Hepatic failure, unspecified without coma - Other nursing home (current) drug therapy - Hypokalemia 08/10/2018 12:24 [facility] TYPE: Medical Surgical DIAGNOSES: - Hypotension, unspecified - Hypo-osmolality and hyponatremia - Alcoholic cirrhosis of liver with ascites 06/24/2018 16:46 [facility] TYPE: Medical Surgical COMPLAINT: - HEPATIC ENCEPHALOPATHY DIAGNOSES: - Dehydration - Acute kidney failure, unspecified - Acute and subacute hepatic failure without coma - Alcoholic cirrhosis of liver without ascites - Other watermelon inspector (current) drug therapy - Essential (primary) hypertension - Chronic hepatic failure without coma - watermelon inspector (current) use of antibiotics - Hepatic failure, unspecified without coma - Personal history of other infectious and parasitic diseases - Klebsiella pneumoniae [K. pneumoniae] as the cause of diseases classified elsewhere - Acute cystitis without hematuria - Other specified anxiety disorders 02/21/2018 01:38 [facility] TYPE: Medical Surgical COMPLAINT: - HEPATIC ENCEPHALOPATHY DIAGNOSES: - Cutaneous abscess of left upper limb - Other specified anxiety disorders - Other watermelon inspector (current) drug therapy - Other pancytopenia - Personal history of nicotine dependence - watermelon inspector (current) use of antibiotics - Alcoholic cirrhosis of liver without ascites - Essential (primary) hypertension - Hypo-osmolality and hyponatremia - Generalized edema - Elevated white blood cell count, unspecified - Hepatic failure, unspecified without coma - Vitamin D deficiency, unspecified 01/25/2018 23:15 [facility] TYPE: Medical Surgical COMPLAINT: - HEPATIC ENCEPHALOPATHY DIAGNOSES: - Alcoholic cirrhosis of liver without ascites - Personal history of nicotine dependence - Exposure to other specified factors, subsequent encounter - Dehydration - Thrombocytopenia, unspecified - Hyperglycemia, unspecified - Major depressive disorder, single episode, unspecified - Anxiety disorder, unspecified - Alcohol dependence, in remission - Essential (primary) hypertension - Alcoholic hepatic failure without coma - Disorders of ornithine metabolism - Adverse effect of androgens and anabolic congeners, initial encounter - Hepatic failure, unspecified without coma - Elevated white blood cell count, unspecified - Displaced bicondylar fracture of left tibia, subsequent encounter for closed fracture with routine healing 01/05/2018 16:18 [facility] TYPE: Medical Surgical COMPLAINT: - TIBIAL FRACTURE DIAGNOSES: - Displaced bicondylar fracture of left tibia, subsequent encounter for closed fracture with routine healing - Alcohol dependence, uncomplicated - Other fracture of upper and lower end of left fibula, subsequent encounter for closed fracture with routine healing - Disorders of ornithine metabolism - Essential (primary) hypertension - Anxiety disorder, unspecified - Fall on same level, unspecified, subsequent encounter - Major depressive disorder, single episode, unspecified - Alcoholic hepatitis without ascites 12/26/2017 18:[address] [facility] TYPE: Medical Surgical COMPLAINT: - ALCOHOL WITHDRAWAL/LEFT TIBIAL FRACTURE DIAGNOSES: - Disorders of ornithine metabolism - Pneumonia, unspecified organism - Displaced bicondylar fracture of left tibia, initial encounter for closed fracture - Anemia in other chronic diseases classified elsewhere - Major depressive disorder, single episode, unspecified - Alcohol dependence with withdrawal, unspecified - Other fracture of upper and lower end of left fibula, initial encounter for closed fracture - Hypo-osmolality and hyponatremia - Acidosis - Unspecified fall, initial encounter - Essential (primary) hypertension - Alcoholic hepatitis without ascites - Anxiety disorder, unspecified - Alcoholic cirrhosis of liver without ascites [email or web address]!/[id number]
[2018-12-15] MEDS ORDERED: ZOFRAN4 MG PO (17:35)
[2018-12-15] MEDS ORDERED: PROMETHAZINE HC25 M1 PO (17:35)
== END 2018-12-15 17:43 | disposition home or self-care (01) ==
LOC: ED 16:21
DX: R11.0 Nausea (principal); I10 Essential (primary) hypertension; F32.9 Major depressive disorder, single episode, unspecified; Z79.899 Other long term (current) drug therapy
CPT/HCPCS: 99283

== ENCOUNTER 2018-12-25 22:39 | Emergency (ER) | payer OTHER ==
[~2018-12-25] VITALS: Ht 182.9 cm; Wt 113.8 kg
[~2018-12-25 22:39] MED LIST changes: +PROMETHAZINE HC25 M1 PO; +ZOFRAN4 MG PO
--- OUTSIDE RECORDS SUMMARY | 2018-12-25 22:42 | XMS ---
PreManage Notification: NATASHA GUSMAN Security Dye Lab Technician Events No recent Security Events currently on file CRITERIA MET - Group Notification - 6 ED Visits in 6 Months - [facility] - Has Care Guidelines - [facility] - 2 Visits in 30 Days CARE PROVIDERS ESTELA MOORE 06/30/2018-Current PHONE: Unknown ASHWINI ROE Family Medicine: Sports Medicine 06/04/2018-Current PHONE: Unknown [facility] Case or Sql Server Dba Current HEALTH AND HOSPICE PHONE: [phone] Jake Gerber MD PHONE: Unknown ASHWINI ROE DO Primary [facility] Current PHONE: [phone] Jonathan has no Care Guidelines for this patient. Care History Medical/Surgical 06/04/2018 [facility] - Patient is currently being case managed by DONNA MORRISONdisk sharpener Vane. Please contact Vane if patient is seen in the ED. [phone]. E.D. VISIT COUNT (12 MO.) 1 [facility] and [facility] 1 [facility] Tyesha Panchal 12 [facility] TOTAL 14 NOTE: Visits indicate total known visits. ED/UCC VISIT TRACKING (12 MO.) 12/25/2018 22:40 [facility] TYPE: Emergency COMPLAINT: - EXTREMITY SWELLING 12/15/2018 16:22 [facility] TYPE: Emergency COMPLAINT: - NAUSEA DIAGNOSES: - Other senior care (current) drug therapy - Essential (primary) hypertension - Major depressive disorder, single episode, unspecified - Nausea 11/25/2018 09:35 [facility] TYPE: Emergency DIAGNOSES: 09970. [id number]. Hepatic failure, unspecified without coma 11/01/2018 07:58 [facility] TYPE: Emergency COMPLAINT: - L LEG PAIN 10/19/2018 12:46 [facility] TYPE: Emergency COMPLAINT: - FALL DIAGNOSES: - Laceration without foreign body, left lower leg, initial encounter - Fall (on) (from) unspecified stairs and steps, initial encounter - Pain in left knee - Other senior care (current) drug therapy - Major depressive disorder, single episode, unspecified - Personal history of nicotine dependence - Essential (primary) hypertension 09/29/2018 09:00 [facility] TYPE: Emergency COMPLAINT: - L WRIST LAC DIAGNOSES: - Other senior care (current) drug therapy - Exposure to other specified factors, initial encounter - Laceration without foreign body of left wrist, initial encounter - Essential (primary) hypertension - Major depressive disorder, single episode, unspecified [facility]2018 [facility] DIAGNOSES: - Dizziness - dizzy/low BP - Alcoholic cirrhosis of liver with ascites - Hypo-osmolality and hyponatremia - Hypotension, unspecified 07/15/2018 22:04 [facility] TYPE: Emergency COMPLAINT: - L LEG PAIN,NON-INJURY DIAGNOSES: - Essential (primary) hypertension - Cellulitis of left lower limb - Other senior care (current) drug therapy 06/24/2018 14:14 [facility] TYPE: Emergency COMPLAINT: - ALTERED LOC 06/03/2018 14:39 [facility] TYPE: Emergency COMPLAINT: - ABNORMAL LABS DIAGNOSES: - Nicotine dependence, unspecified, uncomplicated - Other equipment operator intermodal yard (current) drug therapy - Essential (primary) hypertension - Hepatic failure, unspecified without coma - Vomiting, unspecified 06/02/2018 12:09 [facility] TYPE: Emergency COMPLAINT: - ABNORMAL LABS DIAGNOSES: - Other specified abnormal findings of blood chemistry - Essential (primary) hypertension - Hepatic failure, unspecified without coma - Other equipment operator intermodal yard (current) drug therapy - Personal history of nicotine dependence 02/21/2018 01:37 [facility] TYPE: Emergency COMPLAINT: - WEAKNESS 01/25/2018 19:14 [facility] TYPE: Emergency COMPLAINT: - CONFUSION 12/26/2017 13:25 [facility] [place] TYPE: Emergency COMPLAINT: - L KNEE PAIN/INJURY INPATIENT VISIT TRACKING (12 MO.) 11/25/2018 09:35 [facility] TYPE: Internal Medicine DIAGNOSES: 07146. Hepatic failure, unspecified without coma 11/16/2018 19:46 [facility] TYPE: Internal Medicine DIAGNOSES: 95434. End Stage Liver Disease 82856. Hepatic failure, unspecified without coma 11/05/2018 12:[facility] TYPE: General [facility] DIAGNOSES: - Other specified [...] Hepatic failure, unspecified without coma - Other senior care (current) drug therapy - Hypokalemia 08/10/2018 12:24 [facility]: Medical Surgical DIAGNOSES: - Hypotension, unspecified - Hypo-osmolality and hyponatremia - Alcoholic cirrhosis of liver with ascites 06/24/2018 16:46 [facility] TYPE: Medical Surgical COMPLAINT: - HEPATIC ENCEPHALOPATHY DIAGNOSES: - Dehydration - Acute kidney failure, unspecified - Acute and subacute hepatic failure without coma - Alcoholic cirrhosis of liver without ascites - Other equipment operator intermodal yard (current) drug therapy - Essential (primary) hypertension - Chronic hepatic failure without coma - long term care phlebotomist (current) use of antibiotics - Hepatic failure, unspecified without coma - Personal history of other infectious and parasitic diseases - Klebsiella pneumoniae [K. pneumoniae] as the cause of diseases classified elsewhere - Acute cystitis without hematuria - Other specified anxiety disorders 02/21/2018 01:38 [facility] TYPE: Medical Surgical COMPLAINT: - HEPATIC ENCEPHALOPATHY DIAGNOSES: - Cutaneous abscess of left upper limb - Other specified anxiety disorders - Other senior care (current) drug therapy - Other pancytopenia - Personal history of nicotine dependence - long term care phlebotomist (current) use of antibiotics - Alcoholic cirrhosis [...] - Alcoholic hepatitis without ascites 12/26/2017 18:17 [facility] TYPE: Medical Surgical COMPLAINT: - ALCOHOL [...] - Alcoholic cirrhosis of liver without ascites [id number]
[2018-12-25] MEDS ORDERED: LASIX20 MG PO (22:50)
[2018-12-26] MEDS ORDERED: SPIRONOLACTONE100 MG PO (01:07)
[2018-12-26] MEDS ORDERED: POTASSIUM CHLO20 ME1 PO (01:07)
== END 2018-12-26 01:33 | disposition home or self-care (01) ==
LOC: ED 22:39
DX: K72.10 Chronic hepatic failure without coma (principal); R60.0 Localized edema; E87.6 Hypokalemia; I10 Essential (primary) hypertension; F32.9 Major depressive disorder, single episode, unspecified; Z90.49 Acquired absence of other specified parts of digestive tract; Z79.899 Other long term (current) drug therapy
CPT/HCPCS: 80053; 81001; 82140; 83690; 85025; 85610; 85730; 87077; 87088; 87186; 99283

== ENCOUNTER 2019-01-03 17:08 | Emergency (ER) | payer OTHER ==
[~2019-01-03] VITALS: Ht 182.9 cm; Wt 113.8 kg
[~2019-01-03 17:08] MED LIST changes: +LASIX20 MG PO
--- OUTSIDE RECORDS SUMMARY | 2019-01-03 17:10 | XMS ---
PreManage Notification: NATASHA GUSMAN Security Boarder Steam Events No recent Security Events currently on file CRITERIA MET - Group Notification - 6 ED Visits in 6 Months - [facility] - Has Care Guidelines - [facility] - 2 Visits in 30 Days CARE PROVIDERS ESTELA MOORE 06/30/2018-Current PHONE: Unknown ASHWINI ROE Family Medicine: Sports Medicine 06/04/2018-Current PHONE: Unknown [facility] Case or Dimmer Board Operator Current HEALTH AND HOSPICE PHONE: [phone] Jake Gerber MD PHONE: Unknown ASHWINI ROE DO Primary Care Current PHONE: [phone] Jonathan has no Care Guidelines for this patient. Care History Medical/Surgical 12/28/2018 [facility] - Patient is currently established with [facility]. If patient is seen in the ED during business hours. Please contact CHWs at [facility]. Care Recommendation: This patient has had 5 or more Emergency Department visits in the last 12 months.\T\nbsp; Patient requires education on the scope and purpose of the ED as an acute care provider not a Primary Care Provider and should not be utilized for chronic conditions.\T\nbsp; These are guidelines and the provider should exercise clinical judgment when providing care. 06/04/2018 [facility] - Patient is currently being case managed by DONNA MORRISONpicker and sorter load and unload Vane. Please contact Vane if patient is seen in the ED. [phone]. E.D. VISIT COUNT (12 MO.) 1 [facility] 1 [facility] 12 [facility] TOTAL 14 NOTE: Visits indicate total known visits. ED/UCC VISIT TRACKING (12 MO.) 01/03/2019 17:08 [facility] TYPE: Emergency COMPLAINT: - BLOODY STOOL 12/25/2018 22:40 [facility] TYPE: Emergency COMPLAINT: - EXTREMITY SWELLING DIAGNOSES: - Hypokalemia - Major depressive disorder, single episode, unspecified - Other specified soft tissue disorders - Localized edema - Chronic hepatic failure without coma - Acquired absence of other specified parts of digestive tract - Essential (primary) hypertension - Other fdc (current) drug therapy 12/15/2018 16:22 [facility] TYPE: Emergency COMPLAINT: - NAUSEA DIAGNOSES: - Other fdc (current) drug therapy - Essential (primary) hypertension - Major depressive disorder, single episode, unspecified - Nausea 11/25/2018 09:35 [facility] TYPE: Emergency DIAGNOSES: 01836. [id number]. Hepatic failure, unspecified without coma 11/01/2018 07:58 [facility] TYPE: Emergency COMPLAINT: - L LEG PAIN 10/19/2018 12:46 [facility] TYPE: Emergency COMPLAINT: - FALL DIAGNOSES: - Laceration without foreign body, left lower leg, initial encounter - Fall (on) (from) unspecified stairs and steps, initial encounter - Pain in left knee - Other ocean transportation intermediary (current) drug therapy - Major depressive disorder, single episode, unspecified - Personal history of nicotine dependence - Essential (primary) hypertension 09/29/2018 09:00 [facility] TYPE: Emergency COMPLAINT: - L WRIST LAC DIAGNOSES: - Other ocean transportation intermediary (current) drug therapy - Exposure to other specified factors, initial encounter - Laceration without foreign body of left wrist, initial encounter - Essential (primary) hypertension - Major depressive disorder, single episode, unspecified 08/10/2018 12:24 [facility] DIAGNOSES: - Dizziness - dizzy/low BP - Alcoholic cirrhosis of liver with ascites - Hypo-osmolality and hyponatremia - Hypotension, unspecified 07/15/2018 22:04 [facility] TYPE: Emergency COMPLAINT: - L LEG PAIN,NON-INJURY DIAGNOSES: - Essential (primary) hypertension - Cellulitis of left lower limb - Other fdc (current) drug therapy 06/24/2018 14:[address] [facility] [place] TYPE: Emergency COMPLAINT: - ALTERED LOC 06/03/2018 14:39 [facility] [place] [facility] [place] TYPE: Emergency COMPLAINT: - ABNORMAL LABS DIAGNOSES: - Nicotine dependence, unspecified, uncomplicated - Other ocean transportation intermediary (current) drug therapy - Essential (primary) hypertension - Hepatic failure, unspecified without coma - Vomiting, unspecified 06/02/2018 12:09 [facility] [place] [facility] [place] TYPE: Emergency COMPLAINT: - ABNORMAL LABS DIAGNOSES: - Other specified abnormal findings of blood chemistry - Essential (primary) hypertension - Hepatic failure, unspecified without coma - Other fdc (current) drug therapy - Personal history of nicotine dependence 02/21/2018 01:37 [facility] [facility] [place] TYPE: Emergency COMPLAINT: - WEAKNESS 01/25/2018 19:14 [facility] TYPE: Emergency COMPLAINT: - CONFUSION INPATIENT VISIT TRACKING (12 MO.) 11/25/2018 09:35 [facility] TYPE: Internal Medicine DIAGNOSES: 93016. Hepatic failure, unspecified without coma 11/16/2018 19:46 [facility] TYPE: Internal Medicine DIAGNOSES: 51776. End Stage Liver Disease 77562. Hepatic failure, unspecified without coma 11/05/2018 12:19 [facility] M[facility] TYPE: General Medicine DIAGNOSES: - Other specified [...] Hepatic failure, unspecified without coma - Other ocean transportation intermediary (current) drug therapy - Hypokalemia 08/10/2018 12:24 [facility] DIAGNOSES: - Hypotension, unspecified - Hypo-osmolality and hyponatremia - Alcoholic cirrhosis of liver with ascites 06/24/2018 16:46 [facility] TYPE: Medical Surgical COMPLAINT: - HEPATIC ENCEPHALOPATHY DIAGNOSES: - Dehydration - Acute kidney failure, unspecified - Acute and subacute hepatic failure without coma - Alcoholic cirrhosis of liver without ascites - Other fdc (current) drug therapy - Essential (primary) hypertension - Chronic hepatic failure without coma - terminal system operator (current) use of antibiotics - Hepatic failure, [...] - Other specified anxiety disorders - Other fdc (current) drug therapy - Other pancytopenia - Personal history of nicotine dependence - [facility] (current) use of antibiotics - Alcoholic cirrhosis [...] closed fracture with routine healing 01/05/2018 16:[address] [facility] [address] [facility] [place] TYPE: Medical Surgical COMPLAINT: - TIBIAL [...] episode, unspecified - Alcoholic hepatitis without ascites [email or web address]
[2019-01-03] MEDS ORDERED: CIPRO500 MG PO (17:21)
== END 2019-01-03 19:07 | disposition home or self-care (01) ==
LOC: ED 17:08
DX: K92.2 Gastrointestinal hemorrhage, unspecified (principal); D64.9 Anemia, unspecified; K76.9 Liver disease, unspecified; I10 Essential (primary) hypertension; K74.60 Unspecified cirrhosis of liver; Z90.49 Acquired absence of other specified parts of digestive tract; Z79.899 Other long term (current) drug therapy
CPT/HCPCS: 80053; 85025; 85610; 85730; 99285

== ENCOUNTER 2019-01-08 09:07 | Emergency (ER) | payer OTHER ==
[~2019-01-08] VITALS: Ht 182.9 cm; Wt 113.8 kg
[~2019-01-08 09:07] MED LIST changes: +CIPRO500 MG PO
--- OUTSIDE RECORDS SUMMARY | 2019-01-08 09:10 | XMS ---
PreManage Notification: NATASHA GUSMAN Security Associate Professor Of Communication Events No recent Security Events currently on file CRITERIA MET - Group Notification - 6 ED Visits in 6 Months - [facility] - Has Care Guidelines - [facility] - 2 Visits in 30 Days CARE PROVIDERS ESTELA MOORE 06/30/2018-Current PHONE: Unknown ASHWINI ROE Family Medicine: Sports Medicine 06/04/2018-Current PHONE: Unknown [facility] Case or Sole Ruffer Current HEALTH AND HOSPICE PHONE: [phone] Jake Gerber MD PHONE: Unknown ASHWINI ROE DO Primary Care Current PHONE: [phone] Jonathan has no Care Guidelines for this patient. Care History Medical/Surgical 12/28/2018 [facility] - Patient is currently established with [facility]. If patient is seen in the ED during business hours. Please contact CHWs at [facility]. Care Recommendation: This patient has had 5 or more Emergency Department visits in the last 12 months.\T\nbsp; Patient requires education on the scope and purpose of the ED as an acute care provider not a Primary Care Provider and should not be utilized for chronic conditions.\T\nbsp; These are guidelines and the provider should exercise clinical judgment when providing care. 06/04/2018 [facility] - Patient is currently being case managed by DONNA MORRISONcardiology consultants [facility]. Please contact [facility] if patient is seen in the ED. [phone]. E.D. VISIT COUNT (12 MO.) [address] [facility] 1 [facility] 13 [facility] TOTAL 15 NOTE: Visits indicate total known visits. ED/UCC VISIT TRACKING (12 MO.) 01/08/2019 09:07 [facility] [place] TYPE: Emergency COMPLAINT: - WEAKNESS/DIZZY 01/03/2019 17:08 [facility] [place] TYPE: Emergency COMPLAINT: - BLOODY STOOL DIAGNOSES: - Liver disease, unspecified - Essential (primary) hypertension - Gastrointestinal hemorrhage, unspecified - Anemia, unspecified - Other snf (current) drug therapy - Acquired absence of other specified parts of digestive tract - Melena - Unspecified cirrhosis of liver 12/25/2018 22:40 [facility] [place] TYPE: Emergency COMPLAINT: - EXTREMITY SWELLING DIAGNOSES: - Hypokalemia - Major depressive disorder, single episode, unspecified - Other specified soft tissue disorders - Localized edema - Chronic hepatic failure without coma - Acquired absence of other specified parts of digestive tract - Essential (primary) hypertension - Other termite control technician (current) drug therapy 12/15/2018 16:22 [facility] [place] TYPE: Emergency COMPLAINT: - NAUSEA DIAGNOSES: - Other snf (current) drug therapy - Essential (primary) hypertension - Major depressive disorder, single episode, unspecified - Nausea 11/25/2018 09:35 [facility] TYPE: Emergency DIAGNOSES: 62903. [id number]. Hepatic failure, unspecified without coma 11/01/2018 07:58 [facility] [place] TYPE: Emergency COMPLAINT: - L LEG PAIN 10/19/2018 12:46 [facility] [place] TYPE: Emergency COMPLAINT: - FALL DIAGNOSES: - Laceration without foreign body, left lower leg, initial encounter - Fall (on) (from) unspecified stairs and steps, initial encounter - Pain in left knee - Other snf (current) drug therapy - Major depressive disorder, single episode, unspecified - Personal history of nicotine dependence - Essential (primary) hypertension 09/29/2018 09:00 [facility] TYPE: Emergency COMPLAINT: - L WRIST LAC DIAGNOSES: - Other termite control technician (current) drug therapy - Exposure to other specified factors, initial encounter - Laceration without foreign body of left wrist, initial encounter - Essential (primary) hypertension - Major depressive disorder, single episode, unspecified 08/10/2018 12:24 [facility] TYPE: Emergency DIAGNOSES: - Dizziness - dizzy/low BP - Alcoholic cirrhosis of liver with ascites - Hypo-osmolality and hyponatremia - Hypotension, unspecified 07/15/2018 22:04 [facility] [place] [facility] [place] TYPE: Emergency COMPLAINT: - L LEG PAIN,NON-INJURY DIAGNOSES: - Essential (primary) hypertension - Cellulitis of left lower limb - Other snf (current) drug therapy 06/24/2018 14:14 [facility] [place] [facility] [place] TYPE: Emergency COMPLAINT: - ALTERED LOC 06/03/2018 14:39 [facility] [place] [facility] TYPE: Emergency COMPLAINT: - ABNORMAL LABS DIAGNOSES: - Nicotine dependence, unspecified, uncomplicated - Other snf (current) drug therapy - Essential (primary) hypertension - Hepatic failure, unspecified without coma - Vomiting, unspecified 06/02/2018 12:09 [facility] [place] [facility] TYPE: Emergency COMPLAINT: - ABNORMAL LABS DIAGNOSES: - Other specified abnormal findings of blood chemistry - Essential (primary) hypertension - Hepatic failure, unspecified without coma - Other snf (current) drug therapy - Personal history of nicotine dependence 02/21/2018 01:37 [facility] [place] TYPE: Emergency COMPLAINT: - WEAKNESS 01/25/2018 19:14 [facility] TYPE: Emergency COMPLAINT: - CONFUSION INPATIENT VISIT TRACKING (12 MO.) 11/25/2018 09:35 [facility] TYPE: Internal Medicine DIAGNOSES: 07535. Hepatic failure, unspecified without coma 11/16/2018 19:46 [facility] TYPE: Internal Medicine DIAGNOSES: 51881. End Stage Liver Disease 92690. Hepatic failure, unspecified without coma 11/05/2018 12:19 [facility] TYPE: General Medicine DIAGNOSES: - Other specified [...] Hepatic failure, unspecified without coma - Other termite control technician (current) drug therapy - Hypokalemia 08/10/2018 12:[facility] Medical Surgical DIAGNOSES: - Hypotension, unspecified - Hypo-osmolality and hyponatremia - Alcoholic cirrhosis of liver with ascites 06/24/2018 16:46 [facility] [place] TYPE: Medical Surgical COMPLAINT: - HEPATIC ENCEPHALOPATHY DIAGNOSES: - Dehydration - Acute kidney failure, unspecified - Acute and subacute hepatic failure without coma - Alcoholic cirrhosis of liver without ascites - Other termite control technician (current) drug therapy - Essential (primary) hypertension - Chronic hepatic failure without coma - lobsterman (current) use of antibiotics - Hepatic failure, [...] - Other specified anxiety disorders - Other snf (current) drug therapy - Other pancytopenia - Personal history of nicotine dependence - lobsterman (current) use of antibiotics - Alcoholic cirrhosis of liver without ascites - Essential (primary) hypertension - Hypo-osmolality and hyponatremia - Generalized edema - Elevated white blood cell count, unspecified - Hepatic failure, unspecified without coma - Vitamin D deficiency, unspecified 01/25/2018 23:[address] [facility] [place] TYPE: Medical Surgical COMPLAINT: - HEPATIC [...] encounter for closed fracture with routine healing [email or web address]
== END 2019-01-08 13:38 | disposition home or self-care (01) ==
LOC: ED 09:07
DX: K72.90 Hepatic failure, unspecified without coma (principal); I10 Essential (primary) hypertension; F32.9 Major depressive disorder, single episode, unspecified; Z79.899 Other long term (current) drug therapy
CPT/HCPCS: 80053; 82140; 84484; 85025; 99284

== ENCOUNTER 2019-04-10 12:23 | Inpatient (IN) | payer OTHER ==
[~2019-04-10] VITALS: Ht 182.9 cm; Wt 124.5 kg
--- OUTSIDE RECORDS SUMMARY | 2019-04-10 12:26 | XMS ---
PreManage Notification: NATASHA GUSMAN Security Sql Engineer Events No recent Security Events currently on file CRITERIA MET - Group Notification - 6 ED Visits in 6 Months - [facility] - Has Care Guidelines - PDMP CARE PROVIDERS ESTELA MOOREist 06/30/2018-Current PHONE: Unknown ASHWINI ROE Family Medicine: Sports Medicine 06/04/2018-Current PHONE: Unknown [facility] Case or Supervisor [place] Current HEALTH AND HOSPICE PHONE: [phone] Jake Gerber MD PHONE: Unknown ASHWINI ROE DO Primary Care Current PHONE: [phone] Jonathan has no Care Guidelines for this patient. Care History Medical/Surgical 12/28/2018 [facility] - Patient is currently established with [facility]. If patient is seen in the ED during business hours. Please contact CHWs at [facility]. Care Recommendation: This patient has had 5 or more Emergency Department visits in the last 12 months.\T\nbsp; Patient requires education on the scope and purpose of the ED as an acute care provider not a Primary Care Provider and should not be utilized for chronic conditions.\T\nbsp; These are guidelines and the provider should exercise clinical judgment when providing care. 06/04/2018 [facility] - Patient is currently being case managed by DONNA MORRISONveneer sample maker [facility]. Please contact [facility] if patient is seen in the ED. [phone]. E.D. VISIT COUNT (12 MO.) 1 [facility] [place] [facility] TOTAL 14 NOTE: Visits indicate total known visits. ED/UCC VISIT TRACKING (12 MO.) 04/10/2019 12:24 [facility] [place] TYPE: Emergency COMPLAINT: - FALL/BACK PAIN/INJURY 01/08/2019 09:07 [facility] TYPE: Emergency COMPLAINT: - WEAKNESS/DIZZY DIAGNOSES: - Essential (primary) hypertension - Disorientation, unspecified - Major depressive disorder, single episode, unspecified - Other intermediate card tender (current) drug therapy - Hepatic failure, unspecified without coma 01/03/2019 17:08 [facility] [place] TYPE: Emergency COMPLAINT: - BLOODY STOOL DIAGNOSES: - Liver disease, unspecified - Essential (primary) hypertension - Gastrointestinal hemorrhage, unspecified - Anemia, unspecified - Other intermediate card tender (current) drug therapy - Acquired absence of [...] tract - Essential (primary) hypertension - Other intermediate card tender (current) drug therapy 12/15/2018 16:22 [facility] [place] TYPE: Emergency COMPLAINT: - NAUSEA DIAGNOSES: - Other chcf (current) drug therapy - Essential (primary) hypertension - Major depressive disorder, single episode, unspecified - Nausea 11/25/2018 09:35 [facility] TYPE: Emergency DIAGNOSES: 46471. [id number]. Hepatic failure, unspecified without coma 11/01/2018 07:58 [facility] [place] TYPE: Emergency COMPLAINT: - L LEG PAIN 10/19/2018 12:46 [facility] TYPE: Emergency COMPLAINT: - FALL DIAGNOSES: - Laceration without foreign body, left lower leg, initial encounter - Fall (on) (from) unspecified stairs and steps, initial encounter - Pain in left knee - Other chcf (current) drug therapy - Major depressive disorder, single episode, unspecified - Personal history of nicotine dependence - Essential (primary) hypertension 09/29/2018 09:00 [facility] [place] TYPE: Emergency COMPLAINT: - L WRIST LAC DIAGNOSES: - Other chcf (current) drug therapy - Exposure to other specified factors, initial encounter - Laceration without foreign body of left wrist, initial encounter - Essential (primary) hypertension - Major depressive disorder, single episode, unspecified 08/10/2018 12:24 [facility] [place] [facility] TYPE: Emergency DIAGNOSES: - Dizziness - dizzy/low BP - Alcoholic cirrhosis of liver with ascites - Hypo-osmolality and hyponatremia - Hypotension, unspecified 07/15/2018 22:04 [facility] TYPE: Emergency COMPLAINT: - L LEG PAIN,NON-INJURY DIAGNOSES: - Essential (primary) hypertension - Cellulitis of left lower limb - Other chcf (current) drug therapy 06/24/2018 14:14 [facility] TYPE: Emergency COMPLAINT: - ALTERED LOC 06/03/2018 14:39 [facility] [place] TYPE: Emergency COMPLAINT: - ABNORMAL LABS DIAGNOSES: - Nicotine dependence, unspecified, uncomplicated - Other intermediate card tender (current) drug therapy - Essential (primary) hypertension - Hepatic failure, unspecified without coma - Vomiting, unspecified 06/02/2018 12:[address] [facility] [place] TYPE: Emergency COMPLAINT: - ABNORMAL LABS DIAGNOSES: - Other specified abnormal findings of blood chemistry - Essential (primary) hypertension - Hepatic failure, unspecified without coma - Other intermediate card tender (current) drug therapy - Personal history of nicotine dependence INPATIENT VISIT TRACKING (12 MO.) 11/25/2018 09:35 [facility] TYPE: Internal Medicine DIAGNOSES: 34481. Hepatic failure, unspecified without coma 11/16/2018 19:46 [facility] TYPE: Internal Medicine DIAGNOSES: 60717. End Stage Liver Disease 70333. Hepatic failure, unspecified without coma 11/05/2018 12:[facility] TYPE: General Medicine DIAGNOSES: - Other specified [...] Hepatic failure, unspecified without coma - Other intermediate card tender (current) drug therapy - Hypokalemia 08/10/2018 12:24 [facility]hi [facility] TYPE: Medical Surgical DIAGNOSES: - Hypotension, unspecified - Hypo-osmolality and hyponatremia - Alcoholic cirrhosis of liver with ascites 06/24/2018 16:46 [facility] [place] TYPE: Medical Surgical COMPLAINT: - HEPATIC ENCEPHALOPATHY DIAGNOSES: - Dehydration - Acute kidney failure, unspecified - Acute and subacute hepatic failure without coma - Alcoholic cirrhosis of liver without ascites - Other chcf (current) drug therapy - Essential (primary) hypertension - Chronic hepatic failure without coma - assisted (current) use of antibiotics - Hepatic failure, unspecified without coma - Personal history of other infectious and parasitic diseases - Klebsiella pneumoniae [K. pneumoniae] as the cause of diseases classified elsewhere - Acute cystitis without hematuria - Other specified anxiety disorders [email or web address]
--- NOTE | 2019-04-10 18:06 | NUR ---
REPORT CALLED FROM BRANDIN MORRISON IN THE ER. PT ARRIVED TO MED-SURG AT 1700. PT RATES HIS PAIN AT 10 AT THIS TIME AND WAS MEDICATED ORDERED, SEE EMAR. PT IN ROOM 120 WITH HIS MOTHER AND SISTER. SAT IS 93% AT THIS TIME ON 2L VIA NC.
--- NOTE | 2019-04-10 18:51 | NUR ---
PT SLEEPING AT THIS TIME. SAT ON 2L IS 94%.
--- NOTE | 2019-04-10 20:05 | NUR ---
PRODUCTION MATERIAL HANDLER ROUNDING NOTE. PT FOUND TRYING TO GET OOB. BED ALARM SOUNDING. PRIMARY RN IN ROOM WITH PT. 2PA TO STAND AT BEDSIDE AND USE URINAL. PT ASSISTED BACK TO BED. BED ALARM REACTIVATED. CALL LIGHT IN REACH. ROOM IN VIEW OF RN STATION WITH CURTAIN OPEN. WHITE BOARD UPDATED.
--- NOTE | 2019-04-10 22:00 | NUR ---
PATIENT RESTING EASIER AFTER 4MG OF IV MS GIVEN AT 2127. SATS STAYING IN THE 90'S ON 2L/NC. BED ALARM FISH HATCHERY INSPECTOR LIGHT IN REACH.
--- NOTE | 2019-04-11 00:20 | NUR ---
BED ALARM WENT OFF. PATIENT GOT UP WANTED TO USE THE BATHROOM. USED URINAL AND NEEDS TO STAND UP. PATIENT IS BACK IN BED. CALL LIGHT IN REACH. BED ALARM ON.
--- NOTE | 2019-04-11 02:30 | NUR ---
ASSISTED THE PATIENT TO STAND AND USE THE URINAL, PATIENT GETTING STEADIER ON HIS FEET. BACK IN BED NOW WITH BED ALARM ON. CALL LIGHT IN REACH.
--- NOTE | 2019-04-11 04:30 | NUR ---
PATIENT AWAKE IN BED WATCHING TV.
--- NOTE | 2019-04-11 05:06 | NUR ---
PATIENT'S MENTATION IS CLEARER NOW THAN THE BEGINING OF THE SHIFT. HE KNOW'S WHERE HE IS NOW, BUT WAS CONFUSED TO WHY. THIS WAS EXPLAINED TO HIM. PATIENT HAVING C/O BACK PAIN AND GIVEN 4MG IV MS AGAIN. SATS STILL FINE ON 2L/NC AND HE IS GETTING STEADIER ON HIS FEET.
--- NOTE | 2019-04-11 07:23 | NUR ---
BEDSIDE REPORT RECIEVED. PT RESTING IN BED WITH CALL NELSON WITHIN REACH AND BED ALARM ON. CPOX AND O2 AT 2L REMAIN IN PLACE.
--- NOTE | 2019-04-11 07:36 | EKG ---
[facility] [address] [facility] [place], [place] [address] Signed Normal sinus rhythm Left axis deviation Abnormal ECG When compared with ECG of 26-DEC-2017 14:13, No significant change was found Confirmed by JEANIE WALKER MD ([id number]) on 04/11/2019 7:35:54 AM Electronically Signed By: JEANIE WALKER MD 04/11/19 0736 PATIENT NAME: NATASHA GUSMAN Electrocardiogram DATE OF : 64 PHYSICIAN: JEANIE WALKER MD REPORT #: [id number] REPORT IS CONFIDENTIAL AND NOT TO BE RELEASED WITHOUT AUTHORIZATION
--- NOTE | 2019-04-11 08:38 | NUR ---
PT RESTING IN BED AND IS DROWSY AT THIS TIME AND HE APPEARS COMFORTABLE. SAT IS 92% ON 2L AND HR IS 102. BED ALARM IS ON AND CALL NELSON WITHIN REACH.
--- NOTE | 2019-04-11 09:36 | NUR ---
PT RESTING IN HIS BEDSIDE RECEIVING HIS FERUMOXYTOL INFUSION AT THIS TIME. NO SIGNS OF REACTION NOTED AND PT TOLERATION THE INFUSION WELL.
--- NOTE | 2019-04-11 10:51 | NUR ---
PT'S HOSPICE NURSE DEXTER MORRISON PRESENT. DEXTER STATES THAT THE PT IS BEING DISCHARGED FROM HOSPICE AT THIS TIME. DR WALKER AWARE AND A MESSAGE WAS LEFT FOR OUR BAKELITE MOLDER IN THIS REGARD.
--- NOTE | 2019-04-11 12:22 | NUR ---
PT RESTING IN BED VISITING WITH HIS FAMILY AND EATING LUNCH. PT DENIES ANY PROBLEMS AT THIS TIME.
--- NOTE | 2019-04-11 13:47 | NUR ---
PATIENT IN BED RESTING WITH EYES CLOSED. CALL LIGHT IN REACH. NO FURTHER NEEDS AT THIS TIME.
--- NOTE | 2019-04-11 13:57 | NUR ---
PT SLEEPING AT THIS TIME.
--- NOTE | 2019-04-11 15:00 | NUR ---
PT STATES HE NEEDED TO VOID AND HE ATTEMPTED TO GET OUT OF BED WITHOUT WAITING FOR HELP EVEN WHEN HE WAS ASKED TO WAIT SO SUPPLIES COULD BE GATHERED. PT WAS HELPED TO STAND AND USED THE URINAL. HIS ATTENTS WERE REPLACED AND HE STATES HE NEEDS TO HAVE A BM AND TRIED TO WALK TO THE BR. PT VERY UNSTEADY AND KEPT ATTEMPTING TO AMBULATE WHILE THE COMMODE WAS BEING MOVED TO THE BEDSIDE. PT WAS NOT REDIRECTABLE DURRING THIS TIME. PT NOW SITTING ON THE COMMODE HAVING A BM. PT WAS AGAIN INFORMED THAT HE NEEDS TO CALL FOR HELP AND WAIT FOR THE HELP FOR SAFETY REASON. DON STATES UNDERSTANDING AT THIS TIME. PT UNABLE TO STATE THE YEAR IT IS, OR WHAT TYPE OF FACILITY WE ARE IN OR WHY HE IS HERE. BED ALARM WILL BE REPLACED ONCE THE PT IS BACK TO HIS BED.
--- NOTE | 2019-04-11 15:17 | NUR ---
PT HAD AN XL SOFT BM, WAS CLEANED UP AND HELPED BACK TO BED. SAT ON 2L IS 96%. BED ALARM IS NO AND CALL NELSON IS WITHIN REACH. PT QUICKLY BACK TO SLEEP.
--- NOTE | 2019-04-11 15:18 | NUR ---
MAKAYLA IS LEFT OPEN IN THE PT'S ROOM SO HE CAN BE VIEWED FROM THE NURSING STATION.
--- NOTE | 2019-04-11 16:32 | NUR ---
PT SLEEPING, SAT 94%.
--- NOTE | 2019-04-11 17:46 | NUR ---
Pt sleeping, he awoke to voice breifly and fell back to sleep. He did not eat any of his dinner yet at this point.
--- NOTE | 2019-04-11 19:10 | NUR ---
BEDSIDE REPORT RECEIVED FROM OFFGOING RN. PT RESTING IN BED WITH EYES CLOSED, DOES NOT PARTICIPATE IN REPORT. CALL LIGHT IN REACH. BED ALARM ACTIVE. ROOM IN VIEW OF RN STATION.
--- NOTE | 2019-04-11 20:59 | NUR ---
PATIENT ASSISTED TO THE RESTROOM A 1PA W/FWW. PATIENT IS UNSTEADY ON HIS FEET AND DOES NOT FOLLOW DIRECTIONS. PATIENT WAS ABLE TO VOID AND HAVE A SMALL BM. PATIENTS VITALS TAKEN AND RECORDED. PATIENTS INTAKE AND OUPUT RECORDED. CAHRGE ROUNDING COMPLETED ALSO. NO NEEDS NOTED. CALL LIGHT IN REACH. BED ALARM PLACE ON FOR PATIENT SAFETY.
--- NOTE | 2019-04-11 21:15 | NUR ---
PT ASSESSMENT COMPLETE. PT STATES THAT PAIN TO SHOULDERS AND BACK IS BEGINNING TO INCREASE. PT DENIES NAUSEA, REPORTS SLIGHT SOB. O2 IN PLACE @ 2LPM. LUNG SOUNDS WITH CRACKLES IN BILATERAL BASES, DO NOT CLEAR WITH COUGH. ABD OBESE, NONDISTENDED, SOFT. PT DENIES ABD TENDERNESS. EDEMA PRESENT 3+ FROM B HIPS TO TOES. PT DENIES FURTHER NEEDS ATHIS TIME. CALL LIGHT IN REACH. BED ALRM ACTIVE. ROOM IN VIEW OF RN STATION WITH CURTAIN OPEN.
--- NOTE | 2019-04-11 23:30 | NUR ---
PT RESTING IN BED WITH EYES CLOSED. RESPIRATIONS EVEN AND UNLABORED. PT APPEARS TO BE SLEEPING. SAO2 96%. PT DOES NOT WAKE WHILE RIVERS AND LAKES LEVERMAN IN ROOM. CALL LIGHT IN REACH. BED ALARM ACTIVE. ROOM IN VIEW OF RN STATION WITH CURTAIN OPEN.
--- NOTE | 2019-04-12 02:00 | NUR ---
PT FOUND ATTEMPTING TO REMOVE HIS CLOTHING, GET OUT OF BED. PT ASSISTED TO STAND AT BEDSIDE AND USE THE URINAL. PT BECOMES VERY AGITATED UNTIL ABLE TO VOID. PT ASSISTED BACK TO BED, TOLERATED WELL. BED ALARM REACTIVATED. CALL LIGHT IN REACH. ROOM IN VIEW OF RN STATION WITH CURTAIN OPEN.
--- NOTE | 2019-04-12 08:40 | NUR ---
PT IN BED WITH EYES CLOSED, RESP EVEN AND UNLABORED. AWAKENS EASILY TO VOICE BUT REMAINS DROWSY AND FALLS BACK TO SLEEP EASILY. CONFUSED AT THIS TIME, REQUIRES FREQUENT REMINDERS OF WHERE HE IS AND WHY. PT REPORTS SEVERE 10/10 PAIN AND STATES "I COULDN'T SLEEP AT ALL LAST NIGHT." MEDICATED WITH 4MG IV MORPHINE. SATTING 96% ON 2LNC. BED ALARM ON.
--- NOTE | 2019-04-12 08:57 | NUR ---
PATIENT REFUSED TO GET UP TO CHAIR. CALL LIGHT IN REACH. NO FURTHER NEEDS AT THIS TIME.
--- NOTE | 2019-04-12 09:05 | NUR ---
pt assisted up to bedside commode, one person assist with fww. pt request apin medication for back pain, this rn checked for availablity, pt was given 4mg i.v. morphine at 0840 this am, discussed this with pt, he said it is not helping, will notify
--- NOTE | 2019-04-12 10:58 | NUR ---
PATIENT IN BED WATCHING TV. CALL LIGHT IN REACH. NO FURTHER NEEDS AT THIS TIME.
--- NOTE | 2019-04-12 12:30 | NUR ---
PT ASSISTED TO STAND AT EDGE OF BED TO VOID. BACK TO BED AND MEDICATED WITH PRN MORPHINE FOR 10/10 BACK PAIN. PT ALERT AND ORIENTED AT THIS TIME. MENTATION HAS CLEARED SIGNIFICANTLY. CALL LIGHT WITHIN REACH, BED ALARM ON.
--- NOTE | 2019-04-12 13:46 | NUR ---
PATIENT IN BED WATCHING TV. FRESH WATER GIVEN. CALL LIGHT IN REACH. NO FURTHER NEEDS AT THIS TIME.
--- NOTE | 2019-04-12 14:48 | NUR ---
UNIT ONE OF BLOOD STARTED AT THIS TIME AT 75ML/HR. PT SITTING IN BED TALKING ON PHONE.
--- NOTE | 2019-04-12 15:10 | NUR ---
FIRST 15 MIN OF TRANSFUSION COMPLETED. NO SIGNS OF TRANSFUSION REACTION AT THIS TIME. RATE INCREASED TO 150ML/HR. THIS RN PRESENT FOR FIRST 15 MIN. PT RESTING IN BED WATCHING TV, TALKING AND LAUGHING. RATING BACK PAIN 10/10. MEDICATED WITH TYLENOL AND MORPHINE. CALL LIGHT WITHIN REACH. BED ALARM ON.
--- NOTE | 2019-04-12 15:15 | NUR ---
PT IN BED CONVERSING, LAUGHING, WATCHING TV, TALKING ON THE PHONE WITH FAMILY OCC. REPORTS BACK PAIN /. MEDICATED WITH PRN MORPHINE AND TYLENOL. CALL LIGHT WITHIN REACH.
--- NOTE | 2019-04-12 16:59 | NUR ---
PT HAS BEEN EATING MEALS INDEPENDENTLY. MENTATION HAS CLEARED SIGNIFICANTLY SINCE THIS AM. ANSWERS ORIENTATION QUESTIONS APPROPRIATELY. HAS BEEN AWAKE IN BED WATCHING TV MOST OF SHIFT. HAS CALLED APPROPRIATELY BUT BED ALARM ON. CALL LIGHT WITHIN REACH.
--- NOTE | 2019-04-12 17:15 | NUR ---
BLOOD TRANSFUSION COMPLETE. NO SIGNS OF TRANSFUSION REACTION NOTED. PT SITTING UP IN BED EATING DINNER, WATCHING TV. CALL LIGHT WITHIN REACH.
--- NOTE | 2019-04-12 17:53 | NUR ---
PATIENT SITTING UP IN BED WATCHING TV. CALL LIGHT IN REACH. NO FURTHER NEEDS AT THIS TIME.
--- NOTE | 2019-04-12 19:05 | NUR ---
BEDSIDE REPORT RECEIVED FROM OFFGOING RN. PT RESTING IN BED AWAKE. DENIES NEEDS AT THIS TIME. CALL LIGHT IN REACH. BED ALARM ACTIVE. ROOM IN VIEW OF RN STATION.
--- NOTE | 2019-04-12 21:00 | NUR ---
REQUESTED AND RECEIVED PUDDING.
--- NOTE | 2019-04-12 21:37 | NUR ---
V/S AND I&O TAKEN AND CHARTED. PATIENT ASKED FOR SNACKS AND PROVIDED BY RN LAURA LOPEZ.
--- NOTE | 2019-04-12 22:19 | NUR ---
PT ASSESSMENT COMPLETE. PT RATES PAIN 10/10 TO BACK. PRN PAIN MEDICATION ADMINISTERED. PT DENIES NAUSEA OR SOB. TOLERATING ROOM AIR WELL. PT ALERT, DISORIENTED REGARDING PLACE. OTHERWISE ORIENTED. PT ASSISTED TO STAND, USE URINAL, AND BACK TO BED. PT TOLERATED WELL. LUNG SOUNDS DIM THROUGHOUT. EDEMA PRESENT FROM BILATERAL HIPS TO TOES, 3+. PT DENIES FURTHER NEEDS AT THIS TIME. CALL LIGHT IN REACH. ROOM IN VIEW OF RN STATION WITH CURTAIN OPEN. BED ALARM ACTIVE.
--- NOTE | 2019-04-12 23:32 | NUR ---
ASSISTED PATIENT BACK TO BED FROM BATHROOM. CALL LIGHT IN REACH.
--- NOTE | 2019-04-13 00:15 | NUR ---
PT RESTING IN BED WITH EYES CLOSED. APPEARS TO BE SLEEPING, DOES NOT WAKE WHILE SENIOR PRODUCT MANAGER IN DOORWAY. CALL LIGHT IN REACH, BED ALARM ACTIVE. ROOM IN VIEW OF RN STATION.
--- NOTE | 2019-04-13 03:11 | NUR ---
PT RESTING IN BED WITH EYES CLOSED. RESPIRATIONS EVEN AND UNLABORED. PT APPEARS TO BE SLEEPING. CALL LIGHT IN REACH. BED ALARM ACTIVE. ROOM IN VIEW OF RN STATION.
--- NOTE | 2019-04-13 04:42 | NUR ---
PT RESTLESS IN BED, NEEDING TO VOID. PT ASSISTED TO USE THE URINAL. PT ASSESSMENT COMPLETE. PT FORGETFUL, ORIENTED. PT STATES PAIN MEDICATION "HELPED", CONTINUES TO RATE 10/10. PT FALLS TO SLEEP EASILY DURING ASSESSMENT. REMAINS DROWSY. LUNG SOUNDS DIM THROUGHOUT. EDEMA FROM BILATERAL HIPS TO TOES CONTINUES TO BE 3+. ATTENDS IN PLACE. PT DENIES FURTHER NEEDS. CALL LIGHT IN REACH. BED ALARM ACTIVE. ROOM IN VIEW OF RN STATION WITH CURTAIN OPEN.
--- NOTE | 2019-04-13 06:05 | NUR ---
PATIENT ASSISTED TO THE RESTROOM A 1PA W/FWW. PATIENT WAS ABLE TO VOID. PATIENT IS NOW RESTING IN RECLINER. CHAIR ALARM ON FOR SAFETY. PATIENT DENIES ANY FURTHER NEEDS. CALL LIGHT IN REACH.
--- NOTE | 2019-04-13 07:05 | NUR ---
BEDSIDE HANDOFF REPORT RECEIVED FROM STILL TENDER RN. PT RESTING IN BED, BED ALARM IN PLACE.
--- NOTE | 2019-04-13 07:42 | NUR ---
PT ASSISTED TO BATHROOM, 1PA WITH FWW, VOIDED. PT ASSISTED BACK TO BED, PT REFUSING TO SIT IN CHAIR AT THIS TIME. PT DENIES OTHER NEEDS AT THIS TIME, BED ALARM IN PLACE.
--- NOTE | 2019-04-13 08:02 | NUR ---
PATIENT SITTING UP IN BED EATING BREAKFAST. FRESH WATER GIVEN. CALL LIGHT IN REACH. NO FURTHER NEEDS AT THIS TIME.
--- NOTE | 2019-04-13 08:15 | NUR ---
DISCUSSION WITH HOSPICE VIA PHONE CONCERNING THE PT NEEDING OVERHEAD CLEANER CAREGIVERS AND THAT ONE OF THEM COULD NOT BE HIS MOTHER WHO IS TINY IN STATUE AND QUITE OLD. THEY STATED THEY HAD TALKED WITH JOCY DOHERTY AND JOCY HAD TALKED WITH MELISSA DOHERTY FROM [facility] WHO IS HIS CHW AND HAS BEEN FOR 2 YEARS AND SHE ALSO WOULD CALL [facility]. BUT HOSPICE STATED THEY WILL NOT REENSTATE HIM UNTIL HE HAS SECURE CAREGIVERS FOR 24 HOURS PER DAY.
--- NOTE | 2019-04-13 09:10 | NUR ---
CALLED AND LEFT A MESSAGE FOR JARRED AT [facility] AT [phone].
--- NOTE | 2019-04-13 09:25 | NUR ---
RETURN CALL FOR MESSAGE LEFT BY JARRED, AGAIN NO ANSWER MESSAGE LEFT.
--- NOTE | 2019-04-13 09:30 | NUR ---
PT RESTING IN BED. PT ON ROOM AIR, LUNG SOUNDS CLEAR, DENIES SOB. PT RATING PAIN TO BACK AND NECK, 10/10, GIVEN 15 MG MORPHINE, LIDOCAINE PATCH APPLIED TO BACK. BOWEL TONES ACTIVE, TOLERATING LOW SODIUM DIET. CMS INTACT, PT WITH 3+ EDEMA TO BLE, PULSES FAINT. PT ASKING ABOUT DISCHARGING TODAY, DISCUSSED PLAN OF CARE. PT DENIES OTHER NEEDS AT THIS TIME.
[2019-04-13] MEDS ORDERED: LACTULOSE20 GM/30 M PO (09:49)
[2019-04-13] MEDS ORDERED: MORPHINE SULFAT15 MG PO (09:49)
--- NOTE | 2019-04-13 10:05 | NUR ---
TALKED WITH JARRED REGARDING THIS PT. SHE STATES THAT WITH UPDATED CHART NOTES SHE WOULD BE ABLE TO POSS GET HIM 16 HOURS OF CARE GIVING A DAY BUT DOES NOT HAVE THE MEANS TO GET HIM 24HRS/7DAYS WEEK CARE GIVERS. SHE STATED BUT THEY CAN ALSO GET HIM INTO [facility] FOR CARE IF THE PT AND FAMILY CAN'T COME UP WITH ANOTHER MEANS OF GETTING CAREGIVERS.
--- NOTE | 2019-04-13 10:45 | NUR ---
FAXED CHART NOTES INCLUDING FACE SHEET, ER NOTES AND SUMMARY, H AND P, PROG NOTES, MEDS, VS TO [facility] AT FAX [phone] JULITO STERN. RECIEVED FAX CONFIRMATION OF THIS.
--- NOTE | 2019-04-13 11:15 | NUR ---
CARE CONFERENCE ATTENDING: PTQUINTON PT MOTHER, PT SISTER, MYSELF CASE MANAGEMENT DISCUSSION WAS HAD ABOUT PLACEMENT OR WHAT THE PLAN ON CARE IS. WE DISCUSSED THAT I HAD TALKED WITH HOSPICE THIS AM AND THEY HAD STATED THAT THE PT NEEDED TO HAVE 24 HOUR CAREGIVERS, NOT ONE BEING HIS MOTHER. I ALSO TALKED WITH JARRED FROM [facility] THIS AM AND SHE STATED THAT SHE WOULD PUSH THROUGH AND GET 16 HOURS/DAY APPROVED FOR HIM AND THAT HELPING HANDS STATES THEY HAVE THE STAFF TO DO THAT BUT SHE ISN'T AUTH'D TO GIVE THAT OTHER 8 HOURS/DAY AND THEY PT WOULD HAVE TO COME UP WITH THAT. WE DISCUSSED THIS AND DON SAID "OH I HAVE FAMILY THAT CAN BE THERE FOR THAT 8 HOURS--" MEANWHILE HIS MOTHER AND SISTER ARE BOTH SHAKING THEIR HEADS THAT THERE IS NO ONE THAT THEY CAN COME UP WITH JUST THAT FAST, SO THEN I BROUGHT UP THAT [facility] SUGGESTED THAT THEY WOULD PAY FOR HIM TO GO TO [facility] UNTIL ARRANGEMENTS COULD BE MADE FOR THE 24 HOUR CARE THAT HOSPICE IS REQUIREING. THEY ALL WANTED TO THINK ABOUT THIS AND THEY WOULD LET ME KNOW.
--- NOTE | 2019-04-13 12:33 | NUR ---
PT COMPLAINT OF PAIN, RATIGN PAIN 10, GIVEN 15MG MORPHINE. PT PROVIDED WITH WATER. PT DENIES OTHER NEEDS AT THIS TIME.
--- NOTE | 2019-04-13 13:37 | NUR ---
RN TERRI REQUESTED I GO IN AND VISIT WITH PT AND HIS FAMILY. SHE FELT THEY WERE STRUGGLING WITH CARE FOR PT. PT'S PAIN WAS 10, AND THAT WAS MAKING THINGS DIFFICULT FOR HIM. SOME CONFUSION WAS MENTIONED ABOUT GETTING HELP FOR PT, AND HOW MUCH HOSPICE WILL HELP. DECISION WAS MADE FOR PT TO GO TO [facility] ON COMFORT MEASURES. FAMILY WILL CONTACT [facility] AND GET LIST OF PCG OPTIONS TO COVER 8 HRS EACH DAY THAT [facility] DOESN'T SO THAT PT CAN COME HOME ON HOSPICE. PT REQUESTED SAURABH JEREZ IS INFORMED ABOUT PT AND FAMILY DECISION. WILL FOLLOW NEEDED
--- NOTE | 2019-04-13 13:45 | NUR ---
FAXED CHART NOTES TO [facility] AFTER GETTING CONFIRMATION FROM THE FAMILY THAT THEY HAD DECIDED THEY COULD NOT GET A CAREGIVER LINED UP TODAY AND IT WOULD BE BETTER FOR HIM TO GO THERE IN THE INTERIMM OF GETTING THE CAREGIVERS HIRED, THEN HE COULD RETURN HOME ON HOSPICE. I EXPLAINED THIS TO COLIN THAT THE PLAN IS FOR HIM TO RETURN HOME WITH HOSPICE. FAXED FACE SHEET, ER NOTES AND SUMMARY, H AND P, PROG NOTES, MEDS, V.S. TO [facility]. RECIEVED FAX CONFIRMATION. I THEN CALLED [facility] AND TOLD THEM THE PLAN WELL CALLED [facility] AND TALKED WITH MARK THERE.
--- NOTE | 2019-04-13 15:15 | NUR ---
RECIEVED CONFIRMATION FROM [facility] THAT THEY WOULD ACCEPT PT. ORDERS AND PASRR FAXED AND CONFIRMATION RECIEVED. ORDERS COPIED AND ORIGINALS INTO PACKET AND COPIES IN PT CHART HERE.
--- NOTE | 2019-04-13 15:30 | NUR ---
RECIEVED WORD THAT ORDERS WERE ACCEPTED AND WE COULD ARRANGE TRANSPORT FOR PT TO [facility].
--- NOTE | 2019-04-13 15:45 | NUR ---
PT RESTIGN IN BED, FAMILY AT BEDSIDE. PT CONTINUES TO RATE PAIN HIGH 10/10, GIVEN 15MG MORPHINE. PTGIVEN LACTULOSE PER ORDER. PLANNING FOR DISCHARGE TO [facility] THIS AFTERNOON. AFTERNOON ASSESSMENT COMPLETED, NO ACUTE CHANGES.
== END 2019-04-13 16:55 | disposition hospice, home (50) | DRG 442 ==
LOC: ED 12:23 → MS 16:28
PROVIDERS: ADMIT Internal Medicine
DX: K72.00 Acute and subacute hepatic failure without coma (principal); S32.039A Unspecified fracture of third lumbar vertebra, initial encounter for closed fracture; E87.1 Hypo-osmolality and hyponatremia; K72.10 Chronic hepatic failure without coma; I11.0 Hypertensive heart disease with heart failure; I50.9 Heart failure, unspecified; F32.9 Major depressive disorder, single episode, unspecified; K74.60 Unspecified cirrhosis of liver; K70.10 Alcoholic hepatitis without ascites; F10.21 Alcohol dependence, in remission; D64.9 Anemia, unspecified; D69.59 Other secondary thrombocytopenia; W18.30XA Fall on same level, unspecified, initial encounter; Y92.002 Bathroom of unspecified non-institutional (private) residence as the place of occurrence of the external cause; Z66 Do not resuscitate; Z87.891 Personal history of nicotine dependence; Z79.2 Long term (current) use of antibiotics; Z79.899 Other long term (current) drug therapy
CPT/HCPCS: 36415; 36430; 70450; 71045; 72131; 80048; 80053; 81001; 82140; 83690; 83735; 85025; 85610; 86850; 86900; 86901; 86920; 93005; 93010; 94762; 99285-25; G0480; J1940; J2270; P9016

== ENCOUNTER 2019-04-17 14:38 | Observation (INO) | payer OTHER ==
[~2019-04-17] VITALS: Ht 182.9 cm; Wt 126.6 kg
--- NOTE | 2019-04-17 14:05 | NUR ---
58YR OLD MAN ADMITTED FROM ER VIA STRETCHER FROM ER ACCOMPANIED BY 2 SISTERS TO ROOM 120. 3 PERSON ASSIST TO MOVE OVER ONTO BED. PT WAKES EASILY TO NAME BUT IS CONFUSED AND DROWSY. 5-7 SECONDS OF APNIC PERIODS WHEN FALLS ASLEEP. POSITIONED FOR COMFORT, 4+ EDEMA FEET/LEGS. SKIN IS HOT, DECLINES V/S. FAMILY JUST WANTS FOR HIM TO BE COMFORTABLE. BED ALARM IS ACTIVE FOR SAFETY. CALL LIGHT IS IN EASY REACH.
[~2019-04-17 14:38] MED LIST changes: +MORPHINE SULFAT15 MG PO
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
--- NOTE | 2019-04-17 16:35 | NUR ---
MORPHINE SL 5MG GIVEN FOR APPARENT DISCOMFORT, PT GRIMICING AND CURSING WHEN AWAKE, SISTERS AT BEDSIDE. AGREE HE NEEDS PAIN MEDICATION, PHILLIPS CATHETER DC'D AT THIS TIME PER MD, PT HAS TRIED TO PULL OUT.
--- NOTE | 2019-04-17 17:10 | NUR ---
FAMILY IS GOING HOME FOR THE EVENING, PT IS RESTING WITH EYES CLOSED, APPEARS RELAXED, RESP APNIC 5-7 SECONDS AT A TIME, SKIN WARM AND DRY, HOB 30 DEG, BED ALARM FOR SAFETY.
--- NOTE | 2019-04-17 18:20 | NUR ---
PT AWAKE, KICKING LEGS AND YELLING OUT, "YES" FOR PAIN. MORPHINE SL 10MG GIVEN REFUSED ORAL CARE OR SIPS OF WATER. BED ALARM IS ACTIVE FOR PT SAFETY, POSITIONED WITH PILLOWS FOR COMFORT. LEGS/FEET VERY SWOLLEN.
--- NOTE | 2019-04-17 19:15 | NUR ---
SHIFT REPORT RECEIVED. PATIENT RESTING IN BED. RASS SCORE -1, DROWSEY.
--- NOTE | 2019-04-17 20:11 | NUR ---
CHARGE NURSE ROUNDING NOTE:. CONTINUES TO BE UNRESPONSIVE, CHAYNE-GORDON RESP. CALL [facility] AT BEDSIDE, HOSPICE-END OF LIFE CARE.
--- NOTE | 2019-04-17 20:20 | NUR ---
PRN ATIVAN PROVIDED FOR RASS SCORE OF +1. PATIENT MOANING AND BEING RESTLESS IN THE BED. EYES ARE CLOSED. NO RESPONCE TO VERBAL STIMULI. PATIENT CLOSELY MONITORED FOR COMFORT.
--- NOTE | 2019-04-17 20:34 | NUR ---
PATIENT PULLING AT BLANKETS AND ATTEMPTING TO SIT UP IN BED. PATIENT'S EYES OPEN AND IS MOANING AND CRYING OUT. PATIENT GESTURES TO HIS DARÍO AREA WHICH IS WET WITH URINE. 3 RN ASSIST TO CHANGE PATIENT'S ATTENDS. PATIENT COMPLIANT TO SOME DEGREE IN ROLLING. PATIENT POSITIONED FOR COMFORT. CONTINUES TO BE RESTLESS. PRN MORPHINE PROVIDED PER ORDER.
--- NOTE | 2019-04-17 21:47 | NUR ---
PATIENT APPEARS TO BE RESTING COMFORTABLY. ATTENDS DRY. LIGHTS OFF AND ROOM QUIET TO PROMOTE REST.
--- NOTE | 2019-04-17 22:26 | NUR ---
PATIENT CONTINUES TO REST IN BED. EYES CLOSED. APPEARS COMFORTABLE. VERY OCCATIONAL MOANING HEARD. MONITORING CLOSELY FOR SIGNS OF DISCOMFORT.
--- NOTE | 2019-04-17 23:25 | NUR ---
PATIENT RESTLESS IN BED. CALLING OUT. WHEN APPROACHED PATIENT STATES "I HAVE TO PEE". URNAL HELD FOR PATIENT, WHO VOIDED. ATTENDS ARE WET, 3 STAFF ASSIST TO TURN PATIENT. PATIENT CALLS OUT IN PAIN DURING TURN. UNABLE TO ASSESS PAIN FULLY. PRN MORPHINE PROVIDED.
--- NOTE | 2019-04-18 00:45 | NUR ---
PATIENT CALLING OUT AND MOANING FREQUENTLY. PULLING AT BLANKETS. PRN MORPHINE AND ATIVAN PROVIDED. PATIENT DOES NOT APPEAR AWARE OF RN IN ROOM AND DOES NOT RESPOND TO VERBAL STIMULI.
--- NOTE | 2019-04-18 02:30 | NUR ---
PATIENT CALLING OUT AND APPEARS PAINFUL. PROVIDED WITH PRN MORPHINE. PATIENT THEN REPORTS HAVING TO URINATE. SILVIO FEBRUARY ASSISTED WITH URNAL. PATIENT ABLE TO SETTLE DOWN AFTER THIS AND RESTING NOW.
--- NOTE | 2019-04-18 04:11 | NUR ---
PATIENT APPEARS COMFORTABLE. EYES CLOSED. BREATHING NONLABORED.
--- NOTE | 2019-04-18 05:13 | NUR ---
PATIENT CALLING OUT LOUDLY. COMMUNITY HEALTH SPECIALIST IN ROOM AND PATIENT ABLE TO VOID IN URNAL. THIS APPEARS TO BE CAUSING MUCH OF HIS PAIN AND MAKING IT DIFFICULT TO REST FOR SEVERAL MINS AFTER VOIDING. PRN MEDS PROVIDED TO PROMOTE COMFORT.
--- NOTE | 2019-04-18 05:27 | NUR ---
PATIENT CRYING OUT "HEY GUYS". WHEN RN ENTERED ROOM PATIENT STATES "I HAVE TO PEE RIGHT NOW". ASSISTED PATIENT TO USE URNAL. URINATION APPEARS VERY PAINFUL. PATIENT UNABLE TO DISCRIBE PAIN.
--- NOTE | 2019-04-18 05:48 | NUR ---
PATIENT REQUIRED FREQUENT ADMINISTRATION OF MORPHINE AND ATIVAN. PATIENT MORE ALERT THIS MORNING. CALLING OUT FOR HELP TO VOID FREQUENTLY. VOIDING APPEARS PAINFUL AND PATIENT AGITATED DURING THIS TIME. OTHER THAN VOIDING HE IS ABLE TO REST COMFORTABLE. PATIENT UNABLE TO DISCRIBE PAIN AND CONVERSATION IS LIMITED. BED ALARM REQUIRED, PATIENT OCCATIONALLY TRIED TO EXIT THE BED TO VOID. ORAL CARE TOLERATED ONCE. NO ORAL INTAKE.
--- NOTE | 2019-04-18 06:11 | NUR ---
PATIENT SOBBING AND CRYING OUT. WHEN ASKED IF PATIENT IS HAVING PAIN, PATIENT STATES "WELL YEAH". PRN MORPHINE PROVIDED. PATIENT ATTEMPTING TO HOLD CONVERSATION BUT RESPONCES ARE NOT APPROPRIATE TO THE QUESTIONS. REPOSITIONED PATIENT FOR COMFORT.
--- NOTE | 2019-04-18 06:41 | NUR ---
PATIENT REMOVED GOWN, BLANKETS AND PILLOWS FROM BED. IS VERY RESTLESS. JUNIOR ACCOUNTING CLERK IN ROOM TO COMFORT PATIENT.
--- NOTE | 2019-04-18 07:00 | NUR ---
ORAL CARE, TEETH BRUSHED AT THIS TIME.
--- NOTE | 2019-04-18 07:03 | NUR ---
PT VERBALIZED IN PAIN AT THIS TIME. 20MG ORAL MORPHINE GIVEN AT THIS TIME. PT 7/10 ON NON-VERBAL SCALE.
--- NOTE | 2019-04-18 07:53 | NUR ---
CALLED, PT HAS AGGITATION AND VERBALIZES PAIN DESPITE MEDICATIONS GIVEN THIS AM, INCREASED DOSE ORDERS FOR PAIN MEDICATION AND ATIVAN.
--- NOTE | 2019-04-18 09:01 | NUR ---
pt moaning, aggitated shaking bed rails, will given 2mg po ativan at this time
--- NOTE | 2019-04-18 10:38 | NUR ---
PT CARE, LINENS CHANGED, BED BATH GIVEN, ORAL CARE GIVEN. PT AGGITATED WILL GIVE PAIN AND ATIVAN NOW
--- NOTE | 2019-04-18 10:42 | NUR ---
CALL TO [facility] TO CONFIRM DOSE ON FENTYNAL PATCH. DOSE SHOULD BE 50 MCG.
--- NOTE | 2019-04-18 11:14 | NUR ---
FAMILY AT BEDSIDE, THIS RN UPDATED FAMILY ON HOW HE WAS LAST NIGHT AND THIS AM. PT IS RESTING IN BED EYES CLOSED RR IRREGULAR WITH APEA PERIODS APPROXIMATE 5 SEC. HE APPEARS TO BE RESTING COMFORTABLE AT THIS TIME, PER MY ASSESSMENT AND PER PT FAMILY.
--- NOTE | 2019-04-18 12:03 | NUR ---
PT RESTING QUIETLY IN BED, ORAL CARE PROVIDED.
--- NOTE | 2019-04-18 12:38 | NUR ---
ORAL CARE DONE. PT TOLERATED WELL. BIT DOWN ON SPONGE WHEN SWABBING
--- NOTE | 2019-04-18 13:12 | NUR ---
PT FAMILY AT BEDSIDE. PT MOANING AND RESTLESS. PT ADMINISTERED 20MG PO PRN MORPHINE AND 2MG PO ATIVAN PRN AT THIS TIME
--- NOTE | 2019-04-18 16:22 | NUR ---
PT RESTING IN BED EYES CLOSED. PT IS RELAXED POSITION, NOT RESTLESS. HE IS QUIETLY RESTING IN BED. RR IRREGULAR WITH APNIC EPISODES 5-6 SECONDS, 14 BPM.
--- NOTE | 2019-04-18 16:25 | NUR ---
ORAL CARE PROVIDED, STRETCHER OPERATOR INFUSING ORDERED. FAMILY HAS LEFT AT THIS TIME. PT IS IN VIEW OF NURSES STATION FOR CLOSE MONITORING
--- NOTE | 2019-04-18 16:44 | NUR ---
PT WAS PAINFUL THIS AM, PT NOW ON CONTINUOUS MORPHINE INFUSION FOR COMFORT, HAS BEEN GIVEN ATIVAN REGULAR FOR AGGITATION. FAMILY HAS BEEN IN TO VISIT MOST OF THIS SHIFT. PT HAS BEEN VOIDING IN URINAL AND INCONT. BED CHANGE TWICE. ORAL CARE GIVEN EVERY TWO HOURS. PT HAS APNIC BREATHING 5-6 SEC. PAUSES. HE MOANS AND YELLS OUT WHEN MOVED/TURNED FOR BED CHANGE.
--- NOTE | 2019-04-18 17:10 | NUR ---
PT RESTLESS AT THIS TIME, JERKING LEGS INTERMITTEN IN BED, MOANING INTERMITTENLY. 2MG PO ATIVAN PRN GIVEN NOW.
--- NOTE | 2019-04-18 17:20 | NUR ---
PT ROLLED TO CLEAN AND PLACE LIDODERM PATCH, PT BALLED FIST, AND NEARLY STRUCK STAFF, ORAL CARE DONE, HE MOANING AND REATLESS, 7/10 NO NON-VERBAL PAIN SCALE. 4MG I.V. MORPHINE GIVEN WELL ORAL SUSPENSION.
--- NOTE | 2019-04-18 17:29 | NUR ---
UPDATED ON PT CONTINUED PAIN ISSUES WITH CARE. TO INCREASE MORPHINE INFUSION.
--- NOTE | 2019-04-18 18:39 | NUR ---
PT INCONT OF URINE, CHANGED PT NOW MOANING AND RESTLESS IN BED.
--- NOTE | 2019-04-18 19:00 | NUR ---
SHIFT REPORT RECEIVED. PATIENT LAYING IN BED. APPEARS COMFORTABLE.
--- NOTE | 2019-04-18 20:00 | NUR ---
PATIENT RESTING IN BED. ATTENDS DRY. NO RESPONCE TO VERBAL STIMULI. APPEARS COMFORTABLE. IV SITE WNL. SEAMLESS TUBE ROLLER INFUSING PER ORDER.
--- NOTE | 2019-04-18 20:50 | NUR ---
CHANGED PT'S ATTEND.
--- NOTE | 2019-04-18 21:06 | NUR ---
ROUNDED CHARGE. PATIENT IS RESTING IN BED WITH EYES CLSOED, RR 14, PATIENT APPEARS COMFORTABLE. PATIENTS BED ALARM IS ON FOR SAFETY AND PATIETN IS CLOSE TO RN STATION FOR PATIENT NEEDS. CALL LIGHT IN REACH.
--- NOTE | 2019-04-18 22:00 | NUR ---
PATIENT MOANING AND MOVING ARMS IN BED. PRN ATIVAN PROVIDED. ORAL CARE NONE.
--- NOTE | 2019-04-19 00:05 | NUR ---
PATIENT'S ATTENDS ARE WET. 3 STAFF ASSIST TO CHANGE BEDDING. PATIENT TOLERATED POORLY. LIDO PATCH HAD FALLEN OFF OF HIS BACK AND WAS SOAKED WITH URINE. PRN ATIVAN PROVIDED. REPOSITION FOR COMFORT. ORAL CARE PERFORMED. FLIGHT SURVEYOR SYRINGE REPLACED WITH [facility]MM MORRISON.
--- NOTE | 2019-04-19 00:05 | NUR ---
WITH THE HELP FROM RN'S CHARLI WE DID A COMPLETE BED CHANGE DUE TO INCONTINENCE OF URINE. BEDSIDE TABLE AND CALL LIGHT IN REACH.
--- NOTE | 2019-04-19 01:00 | NUR ---
PATIENT APPEARS COMFORTABLE. IV SITE WNL. BREATHING NONLABORED.
--- NOTE | 2019-04-19 02:02 | NUR ---
PATIENT HAS MOIST BREATH SOUNDS, LIGHT ORAL SUCTIONING DONE. ORAL CARE DONE. ATTENDS IS DRY. HOB ELEAVTED.
--- NOTE | 2019-04-19 03:27 | NUR ---
PATIENT APPEARS TO BE COMFORTABLE. HOB ELEAVTED. BREATHING NONLABORED.
--- NOTE | 2019-04-19 05:47 | NUR ---
PATIENT IS RESTING IN BED WITH EYES CLOSED. PATIENTS BREATHING IS LABORED AND UNEVEN. PATIENT GIVEN PRN MEDICATION FOR COMFORT, SEE MAR. ORAL CARE COMPLETED. SUCTION COMPLETED. CALL LIGHT IN REACH. PATIENT WITHIN VIEW OF RN STATION. ATTEND IS DRY AT THIS TIME.
--- NOTE | 2019-04-19 06:08 | NUR ---
PATIENT'S BREATHING LESS LABORED. APPEARS COMFORTABLE.
--- NOTE | 2019-04-19 06:53 | NUR ---
PATIENT HAS VERY MOIST BREATH SOUNDS. ORAL SUCTIONING COMPLETED. PATIENT HAS FOAMY SECREATIONS. ORAL CARE AND LIP BALM APPLIED. NEW ATTEND PLACED. PATIENT REPOSITIONED FOR COMFORT. TOLERATED WELL WITHOUT MUCH RESPONCE TO CARE. HOB ELEAVTED.
--- NOTE | 2019-04-19 07:21 | NUR ---
bedside report...pt resting in bed eyes closed rr irregular at 12 bpm. no distress noted. pt resting relaxed posture. per report, bed change, oral care just completed.
--- NOTE | 2019-04-19 08:19 | NUR ---
PT SHORT OF BREATH, AIR HUNGER, RESTLESS, MOANING AT THIS TIME. PT GIVEN 4MG I.V. PUSH, 2MG ATIVAN PO PRN FOR COMFORT AT THIS TIME. PT ALSO HAS CONTINUOUS INFUSION OF MORPHINE 4MG/HR I.V.
--- NOTE | 2019-04-19 08:36 | NUR ---
PATIENT IN BED RESTING WITH EYES CLOSED. CALL LIGHT IN REACH. NO FURTHER NEEDS AT THIS TIME.
--- NOTE | 2019-04-19 10:58 | NUR ---
CHANGED PT DEPENDS WET WITH DARK URINE. PT EXTREMELY PAINFUL, EYES OPEN, RIGID AND CRYING OUT. MOANING. GIVEN SL MORPH. TRIED TO SOOTH PT WITH TOUCH AND VOICE. PT CONTINUES TO BE WET AND GURGLING AFTER SUCTION AND ATROPINE.
--- NOTE | 2019-04-19 11:25 | NUR ---
PT REMAINS RESTLESS AND MOANING. ADMINISTERED 4MG IV MORPH
--- NOTE | 2019-04-19 12:44 | NUR ---
PT RESTING IN BED FASIAL EXPRESSIONS CHANGED WITH FAMILY TALKING WITH HIM. HE HAS INCREASED MOANING, ORAL CARE COMPLETE.
--- NOTE | 2019-04-19 14:19 | NUR ---
PT IS COMFORT CARE, MOTHER AND SISTERS IN WITH PT. HELPED THEM WITH WHAT DECISIONS FOR END OF LIFE THEY COULD MAKE, SON MANISH IN [place] HAS POA. [facility] WILL DO FINAL ARRANGEMENTS, UNSURE OF CREMATION AND INTURNMENT. HAD GOOD VISIT WITH FAMILY, BROUGHT PT'S CHART UP TO DATE WITH THIS INFO. SISTER REGGIE WOULD LIKE TO BE NOTIFIED FIRST FOLLOWING POA NOTIFICATION IF NOT PRESENT WHEN PT PASSES. HAD PRAYER WITH FAMILY, AND THEY THEN BEGAN TO SHARE FAVORITE MEMORIES. GOOD MOMENT. WILL FOLLOW NEEDED
--- NOTE | 2019-04-19 16:27 | NUR ---
PT RESTLESS, RIGHT ARM JERK, PT MOANING WITH EACH BREATH. ATIVAN AND MORPHINE GIVEN NOW
--- NOTE | 2019-04-19 17:54 | NUR ---
PT RESTING IN BED MOANING WITH EACH BREATH, NOT JERKING OR RESTLESS AT THIS TIME. WILL GIVEN MEDICATIONS FOR COMFORT AT THIS TIME
--- NOTE | 2019-04-19 18:33 | NUR ---
PT MOANING WITH EACH BREATH RESTING RELAXED IN BED AT THIS TIME.
--- NOTE | 2019-04-19 18:38 | NUR ---
UPDATED , NEW ORDERS WILL BE PLACED TO INCREASE COMFORT MEDICATIONS. PT CONTINUES TO MOAN WITH EACH BREATH CAN BE HEARD AT NURSES STATION, PT WAS INTERMITTENLY RESTING WELL, NOW INCREASEING NEED FOR HIGHER QUANTITY AND MORE FREQUENT PAIN AND ANXIETY MEDICATIONS.
--- NOTE | 2019-04-19 18:42 | NUR ---
PT HAS BEEN GETTING HIGHER DOSES AND MORE FREQUENT COMFORT MEDICATION TO MAINTAIN COMFORT LEVELS, INCLUDING RESTING RELAXED IN BED NOT MOANING OR HAVING MUSCLE JERKS. MD UPDATED AND NEW ORDERS TO BE PLACED. FAMILY HAS BEEN HERE TODAY, SISTER REGGIE IS TO BE CALLED FIRST WITH SIGNIFICANT CHANGES. PT HAS MADE NO URINE THIS SHIFT, ORAL CARE DONE ROUTINELY
--- NOTE | 2019-04-19 19:10 | NUR ---
SHIFT REPORT RECEIVED. PATIENT RESTING IN BED. APPEARS COMFORTABLE. BREATHING NONLABORED.
--- NOTE | 2019-04-19 20:15 | NUR ---
PATIENT'S SISTER AND BROTHER IN LAW IN ROOM. PATIENT'S SISTER REQUEST SHE BE CONTACTED WHEN PATIENT PASSES SO THAT SHE CAN NOTIFY HER MOTHER. CONTACT INFORMATION VERIFIED. PATIENT RESTING IN BED, APPEARS COMFORTABLE. NON-LABORED BREATHING.
--- NOTE | 2019-04-19 21:04 | NUR ---
PATIENT APPEARS COMFORTABLE.
--- NOTE | 2019-04-19 22:00 | NUR ---
NEW CONCRETE CARPENTER SYRINGE STARTED BY JESSICA MORRISON. PATIENT CONTINUES TO APPEAR COMFORTABLE. BREATHING NONLABORED.
--- NOTE | 2019-04-19 23:09 | NUR ---
PATIENT CONTINUES TO REST PEACEFULLY. ORAL CARE PROVIDED. ATTENDS ARE DRY.
--- NOTE | 2019-04-19 23:32 | NUR ---
ATROPINE DROPS ADMINISTERED FOR INCREASED SECREATIONS HEARD WHILE BREATHING. ORAL CARE DONE. LIP BALM APPLIED. PATIENT APPEARS COMFORTABLE. BREATHING NONLABORED.
--- NOTE | 2019-04-20 00:48 | NUR ---
PATIENT HAS INCREASED LABORED BREATHING AND IS UNABLE TO CLEAR SECREATIONS. ATTEMPTS TO SUCTION PATIENT WAS NOT SUCESSFUL IN CLEARING SECREATIONS. PRN MORHPINE PROVIDED.
--- NOTE | 2019-04-20 02:30 | NUR ---
PATIENT APPEARS TO BE COMFORTABLE. BREATHING NONLABORED.
--- NOTE | 2019-04-20 03:00 | NUR ---
ATROPINE ADMINISTERED. ORAL CARE PROVIDED AND LIP BALM APPLIED.
--- NOTE | 2019-04-20 04:45 | NUR ---
PATIENT'S ATTENDS CHANGED. REPOSITIONED FOR COMFORT. PATIENT HAD INCREASED SECREATIONS REQUIRING ORAL SUCTIONING. LARGE AMOUNTS OF GREEN FOAM NOTED. ATROPINE DROPS ADMINISTERED. ORAL CARE AND LIP BALM APPLIED.
--- NOTE | 2019-04-20 06:12 | NUR ---
PATIENT SLEPT WELL THIS SHIFT. PAIN WELL CONTROLLED, PRN OXY X1. SL. TOLERATING DIET. SAIRA AND SPICA DRESSING IN PLACE, SCANT DRAINAGE. LOCAL BLOCK MOSTLY RESOLVED. SPINAL RESOLVED. PATIENT OUT OF BED WITH PT YESTERDAY BUT NOT THIS SHIFT. URINE OUTPUT QS, VS STABLE. PATIENT FEELS HE IS UNABLE TO FULLY EMPTY HIS BLADDER. HAS HAD THIS ISSUE IN THE PAST, CURRENTLY TAKING FLOMAX. TELE 8. HR 50-60'S AT REST.
--- NOTE | 2019-04-20 06:46 | NUR ---
PATIENT APPEARS COMFORTABLE. BREATHING NONLABORED.
--- NOTE | 2019-04-20 08:00 | NUR ---
PT IS RESTING IN BED RELAXED POSTURE, NO GRIMACING OR MOANING. SHALLOW APNIC BREATHING AT 8 BPM. PT APPEARS COMFORTABLE AT THIS TIME
--- NOTE | 2019-04-20 08:59 | NUR ---
NO CHANGE PT HAS APNIC BREATHING 7-8 BPM. RELAXED POSTURE NO GRIMACE OR MOANING.
--- NOTE | 2019-04-20 10:24 | NUR ---
SISTER AT BEDSIDE, PT JERKING ARMS AND LEGS AT THIS TIME AND GRIMACING, FROWNING. APNIC EPISODES 6 SEC. AT THIS TIME, 8-10 BPM.
--- NOTE | 2019-04-20 10:35 | NUR ---
PT MORE ACTIVE TWITCHING, FROWNING, GRIMACING, 5MG I.V. MORPHINE GIVEN, ATIVAN 2MG I.V. GIVEN. ORAL CARE PROVIDED, PT BECOME MUCH MORE IRRITATED, 5MG I.V. MORPHINE SECOND DOSE GIVEN, PT SISTER AT BEDSIDE ALSO FELT PT NEEDED MORE MEDICATION HE DOES NOT LOOK COMFORTABLE.
--- NOTE | 2019-04-20 10:50 | NUR ---
PT NOW LOOKS TO BE RELAXING MORE, RESP 10 BPM WITH AVERAGE OF 6 SEC APNIC EPISODES. SISTER AT BEDSIDE ALSO AGREES THAT PT NOW LOOKS MORE COMFORTABLE.
--- NOTE | 2019-04-20 11:04 | NUR ---
PT SISTER LEFT THE ROOM RB INTO CHECK PT HE IS MORE AGGITATED AT THIS TIME, JERKING LEGS AND FURROWING EYEBROWS, INTERMITTEN MOAN, WILL GIVE ATIVAN 2MG I.V. AT THIS TIME
--- NOTE | 2019-04-20 11:19 | NUR ---
pt biting his lip causing bleeding, oral care provided pt biting down on sponge, also suction provided pt biting down on suction, pt frowning grimacing, pt moaning with breaths, into round on pt.
--- NOTE | 2019-04-20 12:09 | NUR ---
PT RESTING QUIETLY IN BED AT THIS TIME, RELAXED POSTURE, NO STRAINED FACILA EXPRESSION, FEATURES RELAXED AT THIS TIME.
--- NOTE | 2019-04-20 12:49 | NUR ---
PT GRIMACING, FURROWING EYEBROWS, ORAL CARE, MOISTURIZER FROM INTUBATINO KIT PLACED ON TONGUE HE HAS BEEN BITTING IT AND IT IS VERY DRY. PT BIT DOWN ON SWAB AND GRIMACED AND TENSED. I.V. MORPHINE PRN GIVEN AT THIS TIME FOR COMFORT. PT BREATHING 12 BPM, APNIC 1-2 SEC AT THIS TIME.
--- NOTE | 2019-04-20 14:08 | NUR ---
PT RESTING QUIETLY IN BED, PER NON-VERBAL SCALE HE IS 0/10 AT THIS TIME. RR 8 BPM. NO FAMILY AT BEDSIDE AT THIS TIME.
--- NOTE | 2019-04-20 14:25 | NUR ---
PT ON COMFORT-UNABLE TO COMMUNICATE. HIS FAMILY HAS BEEN IN AND OUT TODAY. SPENT TIME WITH PT, TALKING AND PRAYING. WILL FOLLOW NEEDED
--- NOTE | 2019-04-20 14:54 | NUR ---
FAMILY, REGGIE AND QUINTON AT BEDSIDE NOW. FAMILY AGREES THAT PT APPEARS COMFORTABLE AT THIS TIME.
--- NOTE | 2019-04-20 16:13 | NUR ---
FAMILY AGREESS PT APPEARS COMFORTABLE AT THIS TIME. FAMILY, MOTHER AND SISTERS DOES NOT WANT PT ROLLED OR REPOSITIONED DUE TO PAIN
--- NOTE | 2019-04-20 17:09 | NUR ---
PT JERKING HIS ARMS AND FURROWING HIS EYEBROWS, FAMILY AGREES HE NEEDS SOMETHING MORE FOR COMFORT. MORPHINE AND ATIVAN GIVEN PRN FOR COMFORT.
--- NOTE | 2019-04-20 17:47 | NUR ---
PT FAMILY IN ROOM INCLUSING SISTER FROM [place]. PT HAS CONTINUED TO BE GIVEN PAIN MEDICATIONS PRN FOR COMFORT, INCLUDING FAMILY IN ASSESSMENT OF PT COMFORT. COMFORT CART IN ROOM FOR FAMILY.PT HAS APNIC EPISODES 7-8 SECONDS. NO URINE OUT OF SHIFT.
--- NOTE | 2019-04-20 19:10 | NUR ---
IN ROOM FOR REPORT, PT IS RESTING WITH EYES CLOSED, RESPIRATIONS ARE IRREGULAR. PT IS CLOSE TO NURSES STATION.
--- NOTE | 2019-04-20 20:31 | NUR ---
PT IS RESTING WITH EYES CLOSED, HE IS NOT RESPONDING TO TOUCH OR TALKING. HIS ATTENDS ARE DRY AND HIS RESPIRATIONS ARE IRREGULAR. HE DOES NOT SHOW ANY SIGNS OF PAIN OR DISTRESS AT THIS TIME. ORAL CARE PROVIDED AND SUCTIONING OD SECRETIONS. PT IS CLOSE TO NURSES STATION AND MONITORED CLOSELY.
--- NOTE | 2019-04-20 22:36 | NUR ---
PT WAS MOVING HIS HEAD AND LOOKING UNCOMFORTABLE. ADMINISTERED 10MG IV MORPHINE, WILL REASSESS.
--- NOTE | 2019-04-20 23:33 | NUR ---
ADMINISTERED ATIVAN AND ISOPTO ATROPINE DROPS. PT IS RESTING WITH EYES CLOSED, RESPIRATIONS REMAIN IRREGULAR. ORAL CARE PROVIDED. PT IS CLOSE TO NURSES STATION.
--- NOTE | 2019-04-21 02:00 | NUR ---
IN ROOM TO ADMINISTER IV MORPHINE FOR PAIN AND SUCTION PT. ORAL CARE ALSO PROVIDED. PT'S ATTENDS REMAIN FREE OF URINE AT THIS TIME.
--- NOTE | 2019-04-21 03:50 | NUR ---
PT APPEARS TO BE COMFORTABLE, CHAPSTICK APPLIED TO LIPS. RESPIRATIONS ARE IRREGULAR. PT O2 SAT IS 75% AT THIS TIME.
--- NOTE | 2019-04-21 05:52 | NUR ---
IN ROOM TO ADMINISTER PAIN MEDICATION AND PROVIDE ORAL CARE. PT OPENED HIS RIGHT EYE WHILE PROVIDING CARE. HE IS NOT RESPONDING OTHER THAN BITING DOWN ON THE ORAL SPONGE. HE IS RESTING WITH EYES CLOSED AT THIS TIME. NO URINE OUTPUT SEEN IN ATTENDS.
--- NOTE | 2019-04-21 06:27 | NUR ---
DR JEAN NOTIFIED OF PT'S PASSING. HE WILL COME TO THE FLOOR.
--- NOTE | 2019-04-21 06:30 | NUR ---
PATIENTS SISTER CALLS BACK AFTER BEING CONTACTED BY MED/RUBBER PRODUCTION MACHINE OPERATOR. UNABLE TO COME IN AT THIS TIME, WILL BE AVAILABLE VIA TELEPHONE IF ANYTHING IS NEEDED.
--- NOTE | 2019-04-21 06:43 | NUR ---
WALKING BY THE PATIENTS ROOM IT WAS NOTICED THAT THE PATIENT WAS NOT BREATHING. LISTENED TO APICAL PULSE FOR ONE MINUTE, NO PULSE HEARD. JESSICA FARM AGENT PLACED CALL TO SISTER. SISTER CALLED BACK AND WILL CALL AFTER MOTHER IS NOTIFIED FACE TO FACE. JEWELRY SORTER PADMINI NOTIFIED. CLAIM PROCESSOR NOTIFIED. DONOR LINE NOTIFIED. DR JEAN NOTIFIED.
--- NOTE | 2019-04-21 10:40 | NUR ---
I WAS NOTIFIED I ARRIVED THIS AM THAT PT WAS . HIS SISTER REGGIE WAS NOTIFIED, WILL CONTACT SON MANISH IN [facility]. LOCAL FAMILY HAS CHOSEN TO NOT COME TO HOSPITAL, SON MANISH RETURNED MY CALL 0905 HRS. HE CONFIRMED THAT [facility] WILL DO FINAL ARRANGEMENTS AND GAVE PERMISSION TO RELEASE BODY. PERSONAL EFFECTS WENT TO [facility], FAMILY WILL RETREIVE THERE. CONTACTED [facility], PLACED PASSAGE QUILT, ASSISTED [facility] AND [facility] STAFF TRANSFERRING PT TO [facility]. PT'S SISTER REGGIE WAS NOTIFIED AND INFORMED HER THAT [facility] WILL BE CALLING. GOD BLESS, WILL FOLLOW NEEDED
== END 2019-04-21 06:25 ==
LOC: ED 14:38 → MS 14:40
PROVIDERS: ADMIT Student in an Organized Health Care Education/Training Program
DX: K70.30 Alcoholic cirrhosis of liver without ascites (principal); K72.90 Hepatic failure, unspecified without coma; I10 Essential (primary) hypertension; F32.9 Major depressive disorder, single episode, unspecified; F10.20 Alcohol dependence, uncomplicated; I50.9 Heart failure, unspecified; Z51.5 Encounter for palliative care; Z66 Do not resuscitate; Z79.2 Long term (current) use of antibiotics; Z79.891 Long term (current) use of opiate analgesic; Z79.899 Other long term (current) drug therapy
CPT/HCPCS: 51702; 96374; 96375; 96376; 99285-25; G0378; J2060; J2270